=== PATIENT | male | born 1935 | race Caucasian/White ===

== ENCOUNTER 2018-03-29 09:45 | Outpatient (RCR) | payer MEDICARE, SELFPAY ==
--- NOTE | 2017-10-03 14:17 | PT.OIE ---
Current Diagnoses Parkinson's disease (10/03/17) Provider Visit Care Team Role Provider Type Manoj Sanchez MD Primary Care Provider Physician Specialty: Family Practice Address: [facility] [place], [address] Email: [email or web address] Aba Hightower MD Attending Provider Non-Staff Family Provider Specialty: Neurology Address: [address] [place], [address] Email: Physical Therapy Initial Evaluation PT-OP-A Visit Information Start: 10/03/17 13:46 Freq: Status: Active Protocol: Document 10/03/17 12:00 DCW (Rec: 10/03/17 14:16 DCW [id number]) Out-Patient Physical Therapy Visit Information Visit Information Visit Type Initial Evaluation Visit Start Time 12:00 Visit Stop Time 12:45 Total Visit Minutes 45 Visit Number 1 Number of SILVER HOLLOWARE ASSEMBLER Visits 0 Evaluation Information Evaluation Date 10/03/17 PT-OP-B Current Condition Start: 10/03/17 13:46 Freq: Status: Active Protocol: Document 10/03/17 12:00 DCW (Rec: 10/03/17 14:16 DCW [id number]) Current Condition History of Current Condition Onset Date Diagnosed two years ago Current Complaints Decreased balance and gait secondary to Parkinson's disease History of Current Condition Pt is an 81 year old male presenting two years s/p diagnosis of Parkinson's disease. Pt notes that overall , he is doing well, but has some difficulty with his walking and some of his balance. Pt notes that his balance seems to have worsened recently after having trouble with increase tear production in his right eye, which impact his vision and makes him feel less balanced. Pt would like to improve his walking ability as well, and complains of his right leg kicking out during his gait pattern. Future Testing and Treatments Planned Addition of LVST Big program if necessary following his current Physical Therapy program. Treatment Goals Patient/Caregiver Goals Improve gait, improve balance Prior Functional Status Baseline Function- ADL's Independent Baseline Function- Mobility Independent Baseline Function- Gait WNL Current Functional Impairments (Reported) Functional Limitations- Mobility/Gait Pt complains of difficulty walking, particularly with circumduction of his right foot during swing phase. PT-OP-C Subjective Start: 10/03/17 13:46 Freq: Status: Active Protocol: Document 10/03/17 12:00 DCW (Rec: 10/03/17 14:16 DCW [id number]) Patient Questionnaires Foot & Ankle Ability Measure- ADL and Sports FAAM-ADL Score 64/84 = 76.19% FAAM-ADL Impairment 20 to 39% Impaired (Score 50- 66) FAAM-Sport Score 15/28 = 53.57% FAAM-Sport Impairment 40 to 59% Impaired (Score 12- 18) Lower Extremity Functional Scale LEFS Score 55/80 = 68.75% LEFS Impairment 20 to 39% Impaired (Score 48- 62) OP-PT Pain Assessment Pain Assessment Grid Paper Pain Assessment Grid Completed Yes: No noted pain PT-OP-D Balance Start: 10/03/17 13:46 Freq: Status: Active Protocol: Document 10/03/17 12:00 DCW (Rec: 10/03/17 14:16 DCW [id number]) Balance Tests [place] Balance Test [place] Balance Test Score 45/56 [place] Impairment Rating 1 to 19% Impaired (Score 45-55 ) [place] Balance Assessment Evaluation Sitting to Standing Ability Independent w/out Hands Unsupported Stance Safely- 2 minutes Sitting Unsupported, Feet on Floor Safely- 2 minutes Standing to Sitting Ability Safely, Minimal Hand Use Transfer Ability Safely, Minimal Hand Use Unsupported Stance- Eyes Closed Safely, 10 seconds Unsupported Stance- Eyes Open Independent, 1 minute Reaching Forward Standing Safely, 5 inches Pick- Up Object From Floor Independent/Safe Look Behind Shoulder - Standing Turns Sideways Only Turning 360 Degrees Turns slowly, but safely Unsupported Stance, Alternating Feet on 4 Steps w/Supervision Stair Unsupported Tandem Stance Holds Tandem- 30 seconds Unilateral Leg Stance Lifts Leg/Unable to Hold Total Score [place] Total Score (out of 56 points) 45 [place] Impairment Rating 1 to 19% Impaired (Score 45-55 ) PT-OP-E Functional Tests Start: 10/03/17 13:46 Freq: Status: Active Protocol: Document 10/03/17 12:00 DCW (Rec: 10/03/17 14:16 DCW [id number]) Functional Tests Functional Gait Assessment Score 15/31 = 50% Functional Gait Assessment Impairment 40 to <60% Impaired (Score 13- Rating 18) PT-OP-G Mobility & Gait Start: 10/03/17 13:46 Freq: Status: Active Protocol: Document 10/03/17 12:00 DCW (Rec: 10/03/17 14:16 DCW [id number]) OP Gait Assessment Gait Gait Assistance Required: Standby Assistance Distance (Feet) (feet) 100 Able to Maintain Weight Bearing Status Yes During Gait Assistive Devices Assistive Device Gait Belt Orthotic/Prosthetic Devices or Brace: No Gait Deviations General Gait Pattern Decreased Feet Clearance Factors Limiting Gait Function Factors Limiting Gait Function Decreased Strength Poor Balance Comments Gait Comments Right foot circumducts during swing phase to clear toes. Left foot displays increased pronation in stance phase. Stair Climbing Evaluation Evaluation Level of Assist On Stairs Independent Devices Stair Climbing Assistive Devices Left Railing Technique/Endurance Stair Climbing Direction Ascend and Descend Stair Climbing Technique Step Over Step Number of Steps Climbed 4 Stair Climbing Set # Repetitions (reps) 2 PT-OP-H Neuro Start: 10/03/17 13:46 Freq: Status: Active Protocol: Document 10/03/17 12:00 DCW (Rec: 10/03/17 14:16 DCW [id number]) Coordination Evaluation Lower Extremity Tests Right Alternate Heel to Knee; Heel to Toe Test Normal Performance Heel on Sosa Test Normal Performance Left Alternate Heel to Knee; Heel to Toe Test Normal Performance Heel on Sosa Test Normal Performance PT-OP-M Strength Start: 10/03/17 13:46 Freq: Status: Active Protocol: Document 10/03/17 12:00 DCW (Rec: 10/03/17 14:16 DCW [id number]) Hip Strength Hip Manual Muscle Testing Right Flexion (L2) 4 Good Abduction 4 Good Adduction 4+ Good+ Left Flexion (L2) 5 Normal Abduction 5 Normal Adduction 5 Normal Knee Strength Knee Manual Muscle Testing Right Flexion (S2) 4+ Good+ Extension (L3) 4+ Good+ Left Flexion (S2) 4+ Good+ Extension (L3) 4+ Good+ Ankle/Foot Strength Ankle and Foot Manual Muscle Testing Right Dorsiflexion (L4) 4- Good- Plantarflexion (S1) 4 Good Left Dorsiflexion (L4) 4+ Good+ Plantarflexion (S1) 4+ Good+ PT-OP-Q Treatments Start: 10/03/17 13:46 Freq: Status: Active Protocol: Document 10/03/17 12:00 DCW (Rec: 10/03/17 14:16 DCW [id number]) Neuro Re-Education Treatment Balance Activities 1 Details Tandem stance at countertop with head turns PT-OP-T Assessment and Plan Start: 10/03/17 13:46 Freq: Status: Active Protocol: Document 10/03/17 12:00 DCW (Rec: 10/03/17 14:16 DCW [id number]) Physical Therapy Assessment Rehab Potential Rehabilitation Potential Good Evaluation Complexity Number of Personal Factors/Comorbidities 3 or More Number of Body Systems Impaired 3 Clinical Presentation at Evaluation Evolving Impairments Impairments Activity Tolerance Balance Gait Soft Tissue Mobility Strength Goals Five Impairment Gait Short Term Goal (STG) Pt to decrease left over- pronation to WNL STG Duration 10/24/17 Collaborative Teacher Goal (LTG) Pt to display no circumduction of right foot during swing phase LTG Duration 11/14/17 Four Impairment LE Strength Collaborative Teacher Goal (LTG) LE MMT to be grossly 5/5 LTG Duration 11/14/17 Three Impairment Functional Gait Assessment Usp Goal (LTG) Pt to score 23/30 on the FGA LTG Duration 11/14/17 Two Impairment [place] Balance Short Term Goal (STG) Pt to score 50/56 on the [place] Balance Scale STG Duration 10/24/17 One Impairment Activity participation Short Term Goal (STG) Pt to report no loss of balance during ambulation over a period of two weeks STG Duration 10/24/17 Collaborative Teacher Goal (LTG) Pt to report no kicking out of his right foot while walking LTG Duration 11/14/17 Assessment Summary Assessment Pt presents with decreased balance, particularly dynamic balance, and LE weakness secondary to Parkinson's disease. Pt should benefit from skilled therapy focusing on ankle and hip strengthening , balance training, gait training, and functional mobility to decrease the effects of Parkinson's and return him to a relatively normal level of function. Pt may benefit in the long-term from participation in LVST Big program, unfortunately at this time, the therapist in this clinic specializing in this program is unavailable until at least November. Pt will participate in a general balance and strengthening therapy, and will transfer to an LVST Big program at a later date if needed. Physical Therapy Plan Frequency and Duration Frequency of Treatment 2x/Week Duration of Treatment 10 weeks Plan of Care Start Date 10/03/17 Plan of Care End Date 12/12/17 Therapeutic Interventions Therapeutic Interventions Aquatic Therapy Balance Training Coordination Training Gait Training Home Exercise Program Neuromuscular Re-education Patient/Caregiver Education Soft Tissue Mobilization Therapeutic Activities Therapeutic Exercises Next Visit Focus/Plan Next Note Type Treatment Note Next Visit Plan Implement LE strengthening, balance training, gait training.
--- NOTE | 2017-10-03 14:19 | PT.OPPOC ---
Current Diagnoses Parkinson's disease (10/03/17) Provider Visit Care Team Role Provider Type Manoj Sanchez MD Primary Care Provider Physician Specialty: Family Practice Address: [address] [place], [address] Email: [email or web address] Aba Hightower MD Attending Provider Non-Staff Family Provider Specialty: Neurology Address: [address] [place], [address] Email: Plan Of Care PT-OP-T Assessment and Plan Start: 10/03/17 13:46 Freq: Status: Active Protocol: Document 10/03/17 12:00 DCW (Rec: 10/03/17 14:16 DCW [id number]) Physical Therapy Assessment Rehab Potential Rehabilitation Potential Good Evaluation Complexity Number of Personal Factors/Comorbidities 3 or More Number of Body Systems Impaired 3 Clinical Presentation at Evaluation Evolving Impairments Impairments Activity Tolerance Balance Gait Soft Tissue Mobility Strength Goals Five Impairment Gait Short Term Goal (STG) Pt to decrease left over- pronation to WNL STG Duration 10/24/17 Usp Goal (LTG) Pt to display no circumduction of right foot during swing phase LTG Duration 11/14/17 Four Impairment LE Strength Product Info Specialist Goal (LTG) LE MMT to be grossly 5/5 LTG Duration 11/14/17 Three Impairment Functional Gait Assessment Product Info Specialist Goal (LTG) Pt to score 23/30 on the FGA LTG Duration 11/14/17 Two Impairment [place] Balance Short Term Goal (STG) Pt to score 50/56 on the [place] Balance Scale STG Duration 10/24/17 One Impairment Activity participation Short Term Goal (STG) Pt to report no loss of balance during ambulation over a period of two weeks STG Duration 10/24/17 Product Info Specialist Goal (LTG) Pt to report no kicking out of his right foot while walking LTG Duration 11/14/17 Assessment Summary Assessment Pt presents with decreased balance, particularly dynamic balance, and LE weakness secondary to Parkinson's disease. Pt should benefit from skilled therapy focusing on ankle and hip strengthening , balance training, gait training, and functional mobility to decrease the effects of Parkinson's and return him to a relatively normal level of function. Pt may benefit in the long-term from participation in LVST Big program, unfortunately at this time, the therapist in this clinic specializing in this program is unavailable until at least November. Pt will participate in a general balance and strengthening therapy, and will transfer to an LVST Big program at a later date if needed. Physical Therapy Plan Frequency and Duration Frequency of Treatment 2x/Week Duration of Treatment 10 weeks Plan of Care Start Date 10/03/17 Plan of Care End Date 12/12/17 Therapeutic Interventions Therapeutic Interventions Aquatic Therapy Balance Training Coordination Training Gait Training Home Exercise Program Neuromuscular Re-education Patient/Caregiver Education Soft Tissue Mobilization Therapeutic Activities Therapeutic Exercises Next Visit Focus/Plan Next Note Type Treatment Note Next Visit Plan Implement LE strengthening, balance training, gait training. Plan of Care Dates Plan of Care Start Date 10/03/17 Plan of Care End Date 12/12/17 Please Sign and Return: I have reviewed this Plan of Care and certify that the skilled therapy services above are required to meet the patient?s needs. Physician Signature Date Printed Name and Credentials Clinical Instructor Signature Printed Name and Credentials
--- NOTE | 2017-11-01 12:49 | PT.OTN ---
Current Diagnoses Parkinson's disease (11/01/17) Physical Therapy Treatment Note PT-OP-A Visit Information Start: 10/03/17 13:46 Freq: Status: Active Protocol: Document 11/01/17 12:00 DCW (Rec: 11/01/17 12:49 DCW [id number]) Out-Patient Physical Therapy Visit Information Visit Information Visit Type Treatment Note Visit Start Time 12:00 Visit Stop Time 12:45 Total Visit Minutes 45 Visit Number 2 Number of LIGHTING ENGINEER Visits 0 Evaluation Information Evaluation Date 10/03/17 PT-OP-B Current Condition Start: 10/03/17 13:46 Freq: Status: Active Protocol: Document 10/03/17 12:00 DCW (Rec: 10/03/17 14:16 DCW [id number]) Current Condition History of Current Condition Onset Date Diagnosed two years ago Current Complaints Decreased balance and gait secondary to Parkinson's disease History of Current Condition Pt is an 81 year old male presenting two years s/p diagnosis of Parkinson's disease. Pt notes that overall , he is doing well, but has some difficulty with his walking and some of his balance. Pt notes that his balance seems to have worsened recently after having trouble with increase tear production in his right eye, which impact his vision and makes him feel less balanced. Pt would like to improve his walking ability as well, and complains of his right leg kicking out during his gait pattern. Future Testing and Treatments Planned Addition of LVST Big program if necessary following his current Physical Therapy program. Treatment Goals Patient/Caregiver Goals Improve gait, improve balance Prior Functional Status Baseline Function- ADL's Independent Baseline Function- Mobility Independent Baseline Function- Gait WNL Current Functional Impairments (Reported) Functional Limitations- Mobility/Gait Pt complains of difficulty walking, patricularly with circumduction of his right foot during swing phase. PT-OP-C Subjective Start: 10/03/17 13:46 Freq: Status: Active Protocol: Document 11/01/17 12:00 DCW (Rec: 11/01/17 12:49 DCW [id number]) OP-PT Subjective Patient Comments Patient Comments [place] PT-OP-D Balance Start: 10/03/17 13:46 Freq: Status: Active Protocol: Document 10/03/17 12:00 DCW (Rec: 10/03/17 14:16 [facility] [id number]) Balance Tests [place] Balance Test [place] Balance Test Score 45/56 [place] Impairment Rating 1 to 19% Impaired (Score 45-55 ) [place] Balance Assessment Evaluation Sitting to Standing Ability Independent w/out Hands Unsupported Stance Safely- 2 minutes Sitting Unsupported, Feet on Floor Safely- 2 minutes Standing to Sitting Ability Safely, Minimal Hand Use Transfer Ability Safely, Minimal Hand Use Unsupported Stance- Eyes Closed Safely, 10 seconds Unsupported Stance- Eyes Open Independent, 1 minute Reaching Forward Standing Safely, 5 inches Pick- Up Object From Floor Independent/Safe Look Behind Shoulder - Standing Turns Sideways Only Turning 360 Degrees Turns slowly, but safely Unsupported Stance, Alternating Feet on 4 Steps w/Supervision Stair Unsupported Tandem Stance Holds Tandem- 30 seconds Unilateral Leg Stance Lifts Leg/Unable to Hold Total Score [place] Total Score (out of 56 points) 45 [place] Impairment Rating 1 to 19% Impaired (Score 45-55 ) PT-OP-E Functional Tests Start: 10/03/17 13:46 Freq: Status: Active Protocol: Document 10/03/17 12:00 DCW (Rec: 10/03/17 14:16 [facility] [id number]) Functional Tests Functional Gait Assessment Score 15/31 = 50% Functional Gait Assessment Impairment 40 to <60% Impaired (Score 13- Rating 18) PT-OP-G Mobility & Gait Start: 10/03/17 13:46 Freq: Status: Active Protocol: Document 10/03/17 12:00 DCW (Rec: 10/03/17 14:16 [facility] [id number]) OP Gait Assessment Gait Gait Assistance Required: Standby Assistance Distance (Feet) (feet) 100 Able to Maintain Weight Bearing Status Yes During Gait Assistive Devices Assistive Device Gait Belt Orthotic/Prosthetic Devices or Brace: No Gait Deviations General Gait Pattern Decreased Feet Clearance Factors Limiting Gait Function Factors Limiting Gait Function Decreased Strength Poor Balance Comments Gait Comments Right foot circumducts during swing phase to clear toes. Left foot displays increased pronation in stance phase. Stair Climbing Evaluation Evaluation Level of Assist On Stairs Independent Devices Stair Climbing Assistive Devices Left Railing Technique/Endurance Stair Climbing Direction Ascend and Descend Stair Climbing Technique Step Over Step Number of Steps Climbed 4 Stair Climbing Set # Repetitions (reps) 2 PT-OP-H Neuro Start: 10/03/17 13:46 Freq: Status: Active Protocol: Document 10/03/17 12:00 DCW (Rec: 10/03/17 14:16 DCW [id number]) Coordination Evaluation Lower Extremity Tests Right Alternate Heel to Knee; Heel to Toe Test Normal Performance Heel on Sosa Test Normal Performance Left Alternate Heel to Knee; Heel to Toe Test Normal Performance Heel on Sosa Test Normal Performance PT-OP-M Strength Start: 10/03/17 13:46 Freq: Status: Active Protocol: Document 10/03/17 12:00 DCW (Rec: 10/03/17 14:16 DCW [id number]) Hip Strength Hip Manual Muscle Testing Right Flexion (L2) 4 Good Abduction 4 Good Adduction 4+ Good+ Left Flexion (L2) 5 Normal Abduction 5 Normal Adduction 5 Normal Knee Strength Knee Manual Muscle Testing Right Flexion (S2) 4+ Good+ Extension (L3) 4+ Good+ Left Flexion (S2) 4+ Good+ Extension (L3) 4+ Good+ Ankle/Foot Strength Ankle and Foot Manual Muscle Testing Right Dorsiflexion (L4) 4- Good- Plantarflexion (S1) 4 Good Left Dorsiflexion (L4) 4+ Good+ Plantarflexion (S1) 4+ Good+ PT-OP-Q Treatments Start: 10/03/17 13:46 Freq: Status: Active Protocol: Document 11/01/17 12:00 DCW (Rec: 11/01/17 12:49 DCW [id number]) Gym Equipment Shuttle Recovery Unilateral Squats Resistance 75# Shuttle Recovery Platform Stable Bilateral Squats Resistance 125# Shuttle Recovery Platform Stable Shuttle Balance 2 Details Red - Wide EMILY, Staggered Stance 1 Details Yellow - Eyes open/closed, turns Therapeutic Exercises Other Exercises 2 Other Exercise Name Resisted Forward/Retro walking Side bilateral Resistance Yellow Equipment Used T-band 1 Other Exercise Name Resisted side-stepping Side bilateral Resistance Yellow Equipment Used T-band Neuro Re-Education Treatment Balance Activities 4 Details Tandem stance on compliant surface Equipment Gimenez foam 3 Details Hurdles/Foam in // bars Comments Forward, Side-stepping 2 Details Fwd/Retro heel-toe ambulation in // bars PT-OP-T Assessment and Plan Start: 10/03/17 13:46 Freq: Status: Active Protocol: Document 11/01/17 12:00 DCW (Rec: 11/01/17 12:49 DCW [id number]) Physical Therapy Assessment Impairments Impairments Activity Tolerance Balance Gait Soft Tissue Mobility Strength Goals Five Impairment Gait Short Term Goal (STG) Pt to decrease left over- pronation to WNL STG Duration 10/24/17 Penitentiary Goal (LTG) Pt to display no circumduction of right foot during swing phase LTG Duration 11/14/17 Four Impairment LE Strength Penitentiary Goal (LTG) LE MMT to be grossly 5/5 LTG Duration 11/14/17 Three Impairment Functional Gait Assessment Penitentiary Goal (LTG) Pt to score 23/30 on the FGA LTG Duration 11/14/17 Two Impairment [place] Balance Short Term Goal (STG) Pt to score 50/56 on the [place] Balance Scale STG Duration 10/24/17 One Impairment Activity participation Short Term Goal (STG) Pt to report no loss of balance during ambulation over a period of two weeks STG Duration 10/24/17 Cdl Dedicated Truck Driver Goal (LTG) Pt to report no kicking out of his right foot while walking LTG Duration 11/14/17 Assessment Summary Assessment Pt tolerated therapy well today, did not require any rest breaks. Pt interested in HEP, was given tandem stance at counter to work on at home. Physical Therapy Plan Frequency and Duration Frequency of Treatment 2x/Week Duration of Treatment 10 weeks Plan of Care Start Date 10/03/17 Plan of Care End Date 12/12/17 Therapeutic Interventions Therapeutic Interventions Aquatic Therapy Balance Training Coordination Training Gait Training Home Exercise Program Neuromuscular Re-education Patient/Caregiver Education Soft Tissue Mobilization Therapeutic Activities Therapeutic Exercises Next Visit Focus/Plan Next Note Type Treatment Note Next Visit Plan Implement LE strengthening, balance training, gait training.
--- NOTE | 2017-11-08 12:00 | PT.OTN ---
Current Diagnoses Parkinson's disease (11/08/17) Physical Therapy Treatment Note PT-OP-A Visit Information Start: 10/03/17 13:46 Freq: Status: Active Protocol: Document 11/08/17 11:15 DCW (Rec: 11/08/17 11:58 DCW [id number]) Out-Patient Physical Therapy Visit Information Visit Information Visit Type Treatment Note Visit Start Time 11:15 Visit Stop Time 12:00 Total Visit Minutes 45 Visit Number 3 Number of CAMERA TUNING ENGINEER Visits 0 Evaluation Information Evaluation Date 10/03/17 PT-OP-B Current Condition Start: 10/03/17 13:46 Freq: Status: Active Protocol: Document 10/03/17 12:00 DCW (Rec: 10/03/17 14:16 DCW [id number]) Current Condition History of Current Condition Onset Date Diagnosed two years ago Current Complaints Decreased balance and gait secondary to Parkinson's disease History of Current Condition Pt is an 81 year old male presenting two years s/p diagnosis of Parkinson's disease. Pt notes that overall , he is doing well, but has some difficulty with his walking and some of his balance. Pt notes that his balance seems to have worsened recently after having trouble with increase tear production in his right eye, which impact his vision and makes him feel less balanced. Pt would like to improve his walking ability as well, and complains of his right leg kicking out during his gait pattern. Future Testing and Treatments Planned Addition of LVST Big program if necessary following his current Physical Therapy program. Treatment Goals Patient/Caregiver Goals Improve gait, improve balance Prior Functional Status Baseline Function- ADL's Independent Baseline Function- Mobility Independent Baseline Function- Gait WNL Current Functional Impairments (Reported) Functional Limitations- Mobility/Gait Pt complains of difficulty walking, patricularly with circumduction of his right foot during swing phase. PT-OP-C Subjective Start: 10/03/17 13:46 Freq: Status: Active Protocol: Document 11/08/17 11:15 DCW (Rec: 11/08/17 11:58 DCW [id number]) OP-PT Subjective Patient Comments Patient Comments Pt notes that he felt pretty good following his last appointment. PT-OP-D Balance Start: 10/03/17 13:46 Freq: Status: Active Protocol: Document 10/03/17 12:00 DCW (Rec: 10/03/17 14:16 [facility] [id number]) Balance Tests [place] Balance Test [place] Balance Test Score 45/56 [place] Impairment Rating 1 to 19% Impaired (Score 45-55 ) [place] Balance Assessment Evaluation Sitting to Standing Ability Independent w/out Hands Unsupported Stance Safely- 2 minutes Sitting Unsupported, Feet on Floor Safely- 2 minutes Standing to Sitting Ability Safely, Minimal Hand Use Transfer Ability Safely, Minimal Hand Use Unsupported Stance- Eyes Closed Safely, 10 seconds Unsupported Stance- Eyes Open Independent, 1 minute Reaching Forward Standing Safely, 5 inches Pick- Up Object From Floor Independent/Safe Look Behind Shoulder - Standing Turns Sideways Only Turning 360 Degrees Turns slowly, but safely Unsupported Stance, Alternating Feet on 4 Steps w/Supervision Stair Unsupported Tandem Stance Holds Tandem- 30 seconds Unilateral Leg Stance Lifts Leg/Unable to Hold Total Score [place] Total Score (out of 56 points) 45 [place] Impairment Rating 1 to 19% Impaired (Score 45-55 ) PT-OP-E Functional Tests Start: 10/03/17 13:46 Freq: Status: Active Protocol: Document 11/08/17 11:15 DCW (Rec: 11/08/17 12:00 DCW [id number]) Functional Tests Timed Up and Go (TUG) Score 3-trial average = 10.96 seconds TUG Impairment Rating 1 to <20% Impaired (Score 11) PT-OP-G Mobility & Gait Start: 10/03/17 13:46 Freq: Status: Active Protocol: Document 10/03/17 12:00 DCW (Rec: 10/03/17 14:16 [facility] [id number]) OP Gait Assessment Gait Gait Assistance Required: Standby Assistance Distance (Feet) (feet) 100 Able to Maintain Weight Bearing Status Yes During Gait Assistive Devices Assistive Device Gait Belt Orthotic/Prosthetic Devices or Brace: No Gait Deviations General Gait Pattern Decreased Feet Clearance Factors Limiting Gait Function Factors Limiting Gait Function Decreased Strength Poor Balance Comments Gait Comments Right foot circumducts during swing phase to clear toes. Left foot displays increased pronation in stance phase. Stair Climbing Evaluation Evaluation Level of Assist On Stairs Independent Devices Stair Climbing Assistive Devices Left Railing Technique/Endurance Stair Climbing Direction Ascend and Descend Stair Climbing Technique Step Over Step Number of Steps Climbed 4 Stair Climbing Set # Repetitions (reps) 2 PT-OP-H Neuro Start: 10/03/17 13:46 Freq: Status: Active Protocol: Document 10/03/17 12:00 DCW (Rec: 10/03/17 14:16 DCW [id number]) Coordination Evaluation Lower Extremity Tests Right Alternate Heel to Knee; Heel to Toe Test Normal Performance Heel on Sosa Test Normal Performance Left Alternate Heel to Knee; Heel to Toe Test Normal Performance Heel on Sosa Test Normal Performance PT-OP-M Strength Start: 10/03/17 13:46 Freq: Status: Active Protocol: Document 10/03/17 12:00 DCW (Rec: 10/03/17 14:16 DCW [id number]) Hip Strength Hip Manual Muscle Testing Right Flexion (L2) 4 Good Abduction 4 Good Adduction 4+ Good+ Left Flexion (L2) 5 Normal Abduction 5 Normal Adduction 5 Normal Knee Strength Knee Manual Muscle Testing Right Flexion (S2) 4+ Good+ Extension (L3) 4+ Good+ Left Flexion (S2) 4+ Good+ Extension (L3) 4+ Good+ Ankle/Foot Strength Ankle and Foot Manual Muscle Testing Right Dorsiflexion (L4) 4- Good- Plantarflexion (S1) 4 Good Left Dorsiflexion (L4) 4+ Good+ Plantarflexion (S1) 4+ Good+ PT-OP-Q Treatments Start: 10/03/17 13:46 Freq: Status: Active Protocol: Document 11/08/17 11:15 DCW (Rec: 11/08/17 11:58 DCW [id number]) Gym Equipment Shuttle Recovery Unilateral Squats Resistance 75# Shuttle Recovery Platform Stable Bilateral Squats Resistance 125# Shuttle Recovery Platform Stable Shuttle Balance 2 Details Red - Wide EMILY, Staggered Stance Therapeutic Exercises Other Exercises 2 Other Exercise Name Resisted Forward/Retro walking Side bilateral Resistance Green Equipment Used T-band 1 Other Exercise Name Resisted side-stepping Side bilateral Resistance Green Equipment Used T-band Neuro Re-Education Treatment Balance Activities 4 Details Tandem stance on compliant surface Equipment Gimenez foam 3 Details Hurdles/Foam in // bars Comments Forward, Side-stepping 2 Details Fwd/Retro heel-toe ambulation in // bars PT-OP-T Assessment and Plan Start: 10/03/17 13:46 Freq: Status: Active Protocol: Document 11/08/17 11:15 DCW (Rec: 11/08/17 11:58 DCW [id number]) Physical Therapy Assessment Impairments Impairments Activity Tolerance Balance Gait Soft Tissue Mobility Strength Goals Five Impairment Gait Short Term Goal (STG) Pt to decrease left over- pronation to WNL STG Duration 10/24/17 Jail Goal (LTG) Pt to display no circumduction of right foot during swing phase LTG Duration 11/14/17 Four Impairment LE Strength Cashier Self Service [employer] Goal (LTG) LE MMT to be grossly 5/5 LTG Duration 11/14/17 Three Impairment Functional Gait Assessment Cashier Self Service [employer] Goal (LTG) Pt to score 23/30 on the FGA LTG Duration 11/14/17 Two Impairment [place] Balance Short Term Goal (STG) Pt to score 50/56 on the [place] Balance Scale STG Duration 10/24/17 One Impairment Activity participation Short Term Goal (STG) Pt to report no loss of balance during ambulation over a period of two weeks STG Duration 10/24/17 Cashier Self Service Gasoline Goal (LTG) Pt to report no kicking out of his right foot while walking LTG Duration 11/14/17 Assessment Summary Assessment Pt still doing well with HEP, participating in all therapy activities. TUG score places him in a low falls risk category. Physical Therapy Plan Frequency and Duration Frequency of Treatment 2x/Week Duration of Treatment 10 weeks Plan of Care Start Date 10/03/17 Plan of Care End Date 12/12/17 Therapeutic Interventions Therapeutic Interventions Aquatic Therapy Balance Training Coordination Training Gait Training Home Exercise Program Neuromuscular Re-education Patient/Caregiver Education Soft Tissue Mobilization Therapeutic Activities Therapeutic Exercises Next Visit Focus/Plan Next Note Type Treatment Note Next Visit Plan LE strengthening, balance training, gait training.
--- NOTE | 2017-11-14 12:43 | PT.OTN ---
Current Diagnoses Parkinson's disease (11/14/17) Physical Therapy Treatment Note PT-OP-A Visit Information Start: 10/03/17 13:46 Freq: Status: Active Protocol: Document 11/14/17 12:00 DCW (Rec: 11/14/17 12:43 DCW [id number]) Out-Patient Physical Therapy Visit Information Visit Information Visit Type Treatment Note Visit Start Time 12:00 Visit Stop Time 12:45 Total Visit Minutes 45 Visit Number 4 Number of SCHOOL TRAFFIC GUARD Visits 0 Evaluation Information Evaluation Date 10/03/17 PT-OP-B Current Condition Start: 10/03/17 13:46 Freq: Status: Active Protocol: Document 10/03/17 12:00 DCW (Rec: 10/03/17 14:16 DCW [id number]) Current Condition History of Current Condition Onset Date Diagnosed two years ago Current Complaints Decreased balance and gait secondary to Parkinson's disease History of Current Condition Pt is an 81 year old male presenting two years s/p diagnosis of Parkinson's disease. Pt notes that overall , he is doing well, but has some difficulty with his walking and some of his balance. Pt notes that his balance seems to have worsened recently after having trouble with increase tear production in his right eye, which impact his vision and makes him feel less balanced. Pt would like to improve his walking ability as well, and complains of his right leg kicking out during his gait pattern. Future Testing and Treatments Planned Addition of LVST Big program if necessary following his current Physical Therapy program. Treatment Goals Patient/Caregiver Goals Improve gait, improve balance Prior Functional Status Baseline Function- ADL's Independent Baseline Function- Mobility Independent Baseline Function- Gait WNL Current Functional Impairments (Reported) Functional Limitations- Mobility/Gait Pt complains of difficulty walking, patricularly with circumduction of his right foot during swing phase. PT-OP-C Subjective Start: 10/03/17 13:46 Freq: Status: Active Protocol: Document 11/14/17 12:00 DCW (Rec: 11/14/17 12:43 DCW [id number]) OP-PT Subjective Patient Comments Patient Comments Pt reports he has been walking all over the place already today. PT-OP-D Balance Start: 10/03/17 13:46 Freq: Status: Active Protocol: Document 10/03/17 12:00 DCW (Rec: 10/03/17 14:16 [facility] [id number]) Balance Tests [place] Balance Test [place] Balance Test Score 45/56 [place] Impairment Rating 1 to 19% Impaired (Score 45-55 ) [place] Balance Assessment Evaluation Sitting to Standing Ability Independent w/out Hands Unsupported Stance Safely- 2 minutes Sitting Unsupported, Feet on Floor Safely- 2 minutes Standing to Sitting Ability Safely, Minimal Hand Use Transfer Ability Safely, Minimal Hand Use Unsupported Stance- Eyes Closed Safely, 10 seconds Unsupported Stance- Eyes Open Independent, 1 minute Reaching Forward Standing Safely, 5 inches Pick- Up Object From Floor Independent/Safe Look Behind Shoulder - Standing Turns Sideways Only Turning 360 Degrees Turns slowly, but safely Unsupported Stance, Alternating Feet on 4 Steps w/Supervision Stair Unsupported Tandem Stance Holds Tandem- 30 seconds Unilateral Leg Stance Lifts Leg/Unable to Hold Total Score [place] Total Score (out of 56 points) 45 [place] Impairment Rating 1 to 19% Impaired (Score 45-55 ) PT-OP-E Functional Tests Start: 10/03/17 13:46 Freq: Status: Active Protocol: Document 11/08/17 11:15 DCW (Rec: 11/08/17 12:00 DCW [id number]) Functional Tests Timed Up and Go (TUG) Score 3-trial average = 10.96 seconds TUG Impairment Rating 1 to <20% Impaired (Score 11) PT-OP-G Mobility & Gait Start: 10/03/17 13:46 Freq: Status: Active Protocol: Document 10/03/17 12:00 DCW (Rec: 10/03/17 14:16 [facility] [id number]) OP Gait Assessment Gait Gait Assistance Required: Standby Assistance Distance (Feet) (feet) 100 Able to Maintain Weight Bearing Status Yes During Gait Assistive Devices Assistive Device Gait Belt Orthotic/Prosthetic Devices or Brace: No Gait Deviations General Gait Pattern Decreased Feet Clearance Factors Limiting Gait Function Factors Limiting Gait Function Decreased Strength Poor Balance Comments Gait Comments Right foot circumducts during swing phase to clear toes. Left foot displays increased pronation in stance phase. Stair Climbing Evaluation Evaluation Level of Assist On Stairs Independent Devices Stair Climbing Assistive Devices Left Railing Technique/Endurance Stair Climbing Direction Ascend and Descend Stair Climbing Technique Step Over Step Number of Steps Climbed 4 Stair Climbing Set # Repetitions (reps) 2 PT-OP-H Neuro Start: 10/03/17 13:46 Freq: Status: Active Protocol: Document 10/03/17 12:00 DCW (Rec: 10/03/17 14:16 DCW [id number]) Coordination Evaluation Lower Extremity Tests Right Alternate Heel to Knee; Heel to Toe Test Normal Performance Heel on Sosa Test Normal Performance Left Alternate Heel to Knee; Heel to Toe Test Normal Performance Heel on Sosa Test Normal Performance PT-OP-M Strength Start: 10/03/17 13:46 Freq: Status: Active Protocol: Document 10/03/17 12:00 DCW (Rec: 10/03/17 14:16 DCW [id number]) Hip Strength Hip Manual Muscle Testing Right Flexion (L2) 4 Good Abduction 4 Good Adduction 4+ Good+ Left Flexion (L2) 5 Normal Abduction 5 Normal Adduction 5 Normal Knee Strength Knee Manual Muscle Testing Right Flexion (S2) 4+ Good+ Extension (L3) 4+ Good+ Left Flexion (S2) 4+ Good+ Extension (L3) 4+ Good+ Ankle/Foot Strength Ankle and Foot Manual Muscle Testing Right Dorsiflexion (L4) 4- Good- Plantarflexion (S1) 4 Good Left Dorsiflexion (L4) 4+ Good+ Plantarflexion (S1) 4+ Good+ PT-OP-Q Treatments Start: 10/03/17 13:46 Freq: Status: Active Protocol: Document 11/14/17 12:00 DCW (Rec: 11/14/17 12:43 DCW [id number]) Gym Equipment Shuttle Recovery Unilateral Squats Resistance 87# Shuttle Recovery Platform Stable Bilateral Squats Resistance 150# Shuttle Recovery Platform Stable Shuttle Balance 2 Details Red - Wide EMILY (EO/EC), Staggered Stance Therapeutic Exercises Other Exercises 2 Other Exercise Name Resisted Forward/Retro walking Side bilateral Resistance Green Equipment Used T-band 1 Other Exercise Name Resisted side-stepping Side bilateral Resistance Green Equipment Used T-band Neuro Re-Education Treatment Balance Activities 6 Details [place] in // bars 5 Details SLS on foam Equipment Blue 4 Details Extented [place] stance on compliant surface Equipment Blue foam 3 Details Hurdles/Foam in // bars Comments Forward, Side-stepping 2 Details Fwd/Retro heel-toe ambulation in // bars PT-OP-T Assessment and Plan Start: 10/03/17 13:46 Freq: Status: Active Protocol: Document 11/14/17 12:00 DCW (Rec: 11/14/17 12:43 DCW [id number]) Physical Therapy Assessment Impairments Impairments Activity Tolerance Balance Gait Soft Tissue Mobility Strength Goals Five Impairment Gait Short Term Goal (STG) Pt to decrease left over- pronation to WNL STG Duration 10/24/17 Acquisition Advisor Goal (LTG) Pt to display no circumduction of right foot during swing phase LTG Duration 11/14/17 Four Impairment LE Strength Acquisition Advisor Goal (LTG) LE MMT to be grossly 5/5 LTG Duration 11/14/17 Three Impairment Functional Gait Assessment Acquisition Advisor Goal (LTG) Pt to score 23/30 on the FGA LTG Duration 11/14/17 Two Impairment [place] Balance Short Term Goal (STG) Pt to score 50/56 on the [place] Balance Scale STG Duration 10/24/17 One Impairment Activity participation Short Term Goal (STG) Pt to report no loss of balance during ambulation over a period of two weeks STG Duration 10/24/17 Group Home Goal (LTG) Pt to report no kicking out of his right foot while walking LTG Duration 11/14/17 Assessment Summary Assessment Continues to work hard in therapy, optimistic about improvement. Physical Therapy Plan Frequency and Duration Frequency of Treatment 2x/Week Duration of Treatment 10 weeks Plan of Care Start Date 10/03/17 Plan of Care End Date 12/12/17 Therapeutic Interventions Therapeutic Interventions Aquatic Therapy Balance Training Coordination Training Gait Training Home Exercise Program Neuromuscular Re-education Patient/Caregiver Education Soft Tissue Mobilization Therapeutic Activities Therapeutic Exercises Next Visit Focus/Plan Next Note Type Treatment Note Next Visit Plan LE strengthening, balance training, gait training.
--- NOTE | 2017-11-21 12:00 | PT.OTN ---
Current Diagnoses Parkinson's disease (11/21/17) Physical Therapy Treatment Note PT-OP-A Visit Information Start: 10/03/17 13:46 Freq: Status: Active Protocol: Document 11/21/17 11:15 DCW (Rec: 11/21/17 12:00 DCW [id number]) Out-Patient Physical Therapy Visit Information Visit Information Visit Type Treatment Note Visit Start Time 11:15 Visit Stop Time 12:00 Total Visit Minutes 45 Visit Number 5 Number of PARACHUTE/COMBATANT DIVER OFFICER Visits 0 Evaluation Information Evaluation Date 10/03/17 PT-OP-B Current Condition Start: 10/03/17 13:46 Freq: Status: Active Protocol: Document 10/03/17 12:00 DCW (Rec: 10/03/17 14:16 DCW [id number]) Current Condition History of Current Condition Onset Date Diagnosed two years ago Current Complaints Decreased balance and gait secondary to Parkinson's disease History of Current Condition Pt is an 81 year old male presenting two years s/p diagnosis of Parkinson's disease. Pt notes that overall , he is doing well, but has some difficulty with his walking and some of his balance. Pt notes that his balance seems to have worsened recently after having trouble with increase tear production in his right eye, which impact his vision and makes him feel less balanced. Pt would like to improve his walking ability as well, and complains of his right leg kicking out during his gait pattern. Future Testing and Treatments Planned Addition of LVST Big program if necessary following his current Physical Therapy program. Treatment Goals Patient/Caregiver Goals Improve gait, improve balance Prior Functional Status Baseline Function- ADL's Independent Baseline Function- Mobility Independent Baseline Function- Gait WNL Current Functional Impairments (Reported) Functional Limitations- Mobility/Gait Pt complains of difficulty walking, patricularly with circumduction of his right foot during swing phase. PT-OP-C Subjective Start: 10/03/17 13:46 Freq: Status: Active Protocol: Document 11/21/17 11:15 DCW (Rec: 11/21/17 12:00 DCW [id number]) OP-PT Subjective Patient Comments Patient Comments Pt reports that his feet feel like they're asleep today. PT-OP-D Balance Start: 10/03/17 13:46 Freq: Status: Active Protocol: Document 10/03/17 12:00 DCW (Rec: 10/03/17 14:16 [facility] [id number]) Balance Tests [place] Balance Test [place] Balance Test Score 45/56 [place] Impairment Rating 1 to 19% Impaired (Score 45-55 ) [place] Balance Assessment Evaluation Sitting to Standing Ability Independent w/out Hands Unsupported Stance Safely- 2 minutes Sitting Unsupported, Feet on Floor Safely- 2 minutes Standing to Sitting Ability Safely, Minimal Hand Use Transfer Ability Safely, Minimal Hand Use Unsupported Stance- Eyes Closed Safely, 10 seconds Unsupported Stance- Eyes Open Independent, 1 minute Reaching Forward Standing Safely, 5 inches Pick- Up Object From Floor Independent/Safe Look Behind Shoulder - Standing Turns Sideways Only Turning 360 Degrees Turns slowly, but safely Unsupported Stance, Alternating Feet on 4 Steps w/Supervision Stair Unsupported Tandem Stance Holds Tandem- 30 seconds Unilateral Leg Stance Lifts Leg/Unable to Hold Total Score [place] Total Score (out of 56 points) 45 [place] Impairment Rating 1 to 19% Impaired (Score 45-55 ) PT-OP-E Functional Tests Start: 10/03/17 13:46 Freq: Status: Active Protocol: Document 11/08/17 11:15 DCW (Rec: 11/08/17 12:00 GAW [id number]) Functional Tests Timed Up and Go (TUG) Score 3-trial average = 10.96 seconds TUG Impairment Rating 1 to <20% Impaired (Score 11) PT-OP-G Mobility & Gait Start: 10/03/17 13:46 Freq: Status: Active Protocol: Document 10/03/17 12:00 DCW (Rec: 10/03/17 14:16 [facility] [id number]) OP Gait Assessment Gait Gait Assistance Required: Standby Assistance Distance (Feet) (feet) 100 Able to Maintain Weight Bearing Status Yes During Gait Assistive Devices Assistive Device Gait Belt Orthotic/Prosthetic Devices or Brace: No Gait Deviations General Gait Pattern Decreased Feet Clearance Factors Limiting Gait Function Factors Limiting Gait Function Decreased Strength Poor Balance Comments Gait Comments Right foot circumducts during swing phase to clear toes. Left foot displays increased pronation in stance phase. Stair Climbing Evaluation Evaluation Level of Assist On Stairs Independent Devices Stair Climbing Assistive Devices Left Railing Technique/Endurance Stair Climbing Direction Ascend and Descend Stair Climbing Technique Step Over Step Number of Steps Climbed 4 Stair Climbing Set # Repetitions (reps) 2 PT-OP-H Neuro Start: 10/03/17 13:46 Freq: Status: Active Protocol: Document 10/03/17 12:00 DCW (Rec: 10/03/17 14:16 DCW [id number]) Coordination Evaluation Lower Extremity Tests Right Alternate Heel to Knee; Heel to Toe Test Normal Performance Heel on Sosa Test Normal Performance Left Alternate Heel to Knee; Heel to Toe Test Normal Performance Heel on Sosa Test Normal Performance PT-OP-M Strength Start: 10/03/17 13:46 Freq: Status: Active Protocol: Document 10/03/17 12:00 DCW (Rec: 10/03/17 14:16 DCW [id number]) Hip Strength Hip Manual Muscle Testing Right Flexion (L2) 4 Good Abduction 4 Good Adduction 4+ Good+ Left Flexion (L2) 5 Normal Abduction 5 Normal Adduction 5 Normal Knee Strength Knee Manual Muscle Testing Right Flexion (S2) 4+ Good+ Extension (L3) 4+ Good+ Left Flexion (S2) 4+ Good+ Extension (L3) 4+ Good+ Ankle/Foot Strength Ankle and Foot Manual Muscle Testing Right Dorsiflexion (L4) 4- Good- Plantarflexion (S1) 4 Good Left Dorsiflexion (L4) 4+ Good+ Plantarflexion (S1) 4+ Good+ PT-OP-Q Treatments Start: 10/03/17 13:46 Freq: Status: Active Protocol: Document 11/21/17 11:15 DCW (Rec: 11/21/17 12:00 DCW [id number]) Gym Equipment Shuttle Recovery Unilateral Squats Resistance 87# Shuttle Recovery Platform Stable Bilateral Squats Resistance 150# Shuttle Recovery Platform Stable Shuttle Balance 2 Details Red - Wide EMILY (EO/EC), Staggered Stance Neuro Re-Education Treatment Balance Activities 6 Details [place] in // bars 5 Details SLS on foam Equipment Blue 3 Details Hurdles/Foam in // bars Comments Forward, Side-stepping 2 Details Fwd/Retro heel-toe ambulation in // bars Coordination Activities 1 Details Kicking stationary and moving balls PT-OP-T Assessment and Plan Start: 10/03/17 13:46 Freq: Status: Active Protocol: Document 11/21/17 11:15 DCW (Rec: 11/21/17 12:00 DCW [id number]) Physical Therapy Assessment Impairments Impairments Activity Tolerance Balance Gait Soft Tissue Mobility Strength Goals Five Impairment Gait Short Term Goal (STG) Pt to decrease left over- pronation to WNL STG Duration 10/24/17 Insole Doubler Goal (LTG) Pt to display no circumduction of right foot during swing phase LTG Duration 11/14/17 Four Impairment LE Strength Fci Goal (LTG) LE MMT to be grossly 5/5 LTG Duration 11/14/17 Three Impairment Functional Gait Assessment Fci Goal (LTG) Pt to score 23/30 on the FGA LTG Duration 11/14/17 Two Impairment [place] Balance Short Term Goal (STG) Pt to score 50/56 on the [place] Balance Scale STG Duration 10/24/17 One Impairment Activity participation Short Term Goal (STG) Pt to report no loss of balance during ambulation over a period of two weeks STG Duration 10/24/17 Insole Doubler Goal (LTG) Pt to report no kicking out of his right foot while walking LTG Duration 11/14/17 Assessment Summary Assessment Pt performed well with addition of kicking balls, able to maintain balance ad shift weight well. Physical Therapy Plan Frequency and Duration Frequency of Treatment 2x/Week Duration of Treatment 10 weeks Plan of Care Start Date 10/03/17 Plan of Care End Date 12/12/17 Therapeutic Interventions Therapeutic Interventions Aquatic Therapy Balance Training Coordination Training Gait Training Home Exercise Program Neuromuscular Re-education Patient/Caregiver Education Soft Tissue Mobilization Therapeutic Activities Therapeutic Exercises Next Visit Focus/Plan Next Note Type Treatment Note Next Visit Plan LE strengthening, balance training, gait training.
--- NOTE | 2017-12-07 10:32 | PT.OTN ---
Current Diagnoses Parkinson's disease (12/07/17) Physical Therapy Treatment Note PT-OP-A Visit Information Start: 10/03/17 13:46 Freq: Status: Active Protocol: Document 12/07/17 09:45 DCW (Rec: 12/07/17 10:32 DCW [id number]) Out-Patient Physical Therapy Visit Information Visit Information Visit Type Progress Note Visit Start Time 09:45 Visit Stop Time 10:30 Total Visit Minutes 45 Visit Number 6 Number of BALL MILL OPERATOR Visits 0 Evaluation Information Evaluation Date 10/03/17 PT-OP-B Current Condition Start: 10/03/17 13:46 Freq: Status: Active Protocol: Document 10/03/17 12:00 DCW (Rec: 10/03/17 14:16 DCW [id number]) Current Condition History of Current Condition Onset Date Diagnosed two years ago Current Complaints Decreased balance and gait secondary to Parkinson's disease History of Current Condition Pt is an 81 year old male presenting two years s/p diagnosis of Parkinson's disease. Pt notes that overall , he is doing well, but has some difficulty with his walking and some of his balance. Pt notes that his balance seems to have worsened recently after having trouble with increase tear production in his right eye, which impact his vision and makes him feel less balanced. Pt would like to improve his walking ability as well, and complains of his right leg kicking out during his gait pattern. Future Testing and Treatments Planned Addition of LVST Big program if necessary following his current Physical Therapy program. Treatment Goals Patient/Caregiver Goals Improve gait, improve balance Prior Functional Status Baseline Function- ADL's Independent Baseline Function- Mobility Independent Baseline Function- Gait WNL Current Functional Impairments (Reported) Functional Limitations- Mobility/Gait Pt complains of difficulty walking, patricularly with circumduction of his right foot during swing phase. PT-OP-C Subjective Start: 10/03/17 13:46 Freq: Status: Active Protocol: Document 12/07/17 09:45 DCW (Rec: 12/07/17 10:32 DCW [id number]) OP-PT Subjective Patient Comments Patient Comments Pt reports that he is feeling better today. PT-OP-D Balance Start: 10/03/17 13:46 Freq: Status: Active Protocol: Document 12/07/17 09:45 DCW (Rec: 12/07/17 10:14 DCW [id number]) Balance Tests [place] Balance Test [place] Balance Test Score 49/56 [place] Impairment Rating 1 to 19% Impaired (Score 45-55 ) [place] Balance Assessment Evaluation Sitting to Standing Ability Independent w/out Hands Unsupported Stance Safely- 2 minutes Sitting Unsupported, Feet on Floor Safely- 2 minutes Standing to Sitting Ability Safely, Minimal Hand Use Transfer Ability Safely, Minimal Hand Use Unsupported Stance- Eyes Closed Safely, 10 seconds Unsupported Stance- Eyes Open Independent, 1 minute Reaching Forward Standing Safely, 5 inches Pick- Up Object From Floor Independent/Safe Look Behind Shoulder - Standing Turns Sideways Only Turning 360 Degrees Turns slowly, but safely Unsupported Stance, Alternating Feet on (I)- 8 Steps in 20 secs Stair Unsupported Tandem Stance Achieves Tandem Unilateral Leg Stance Lifts Leg/Holds > 3 secs Total Score [place] Total Score (out of 56 points) 49 [place] Impairment Rating 1 to 19% Impaired (Score 45-55 ) PT-OP-E Functional Tests Start: 10/03/17 13:46 Freq: Status: Active Protocol: Document 12/07/17 09:45 DCW (Rec: 12/07/17 10:14 [facility] [id number]) Functional Tests Functional Gait Assessment Score 20/30 = 67% Functional Gait Assessment Impairment 20 to <40% Impaired (Score 19- Rating 24) Timed Up and Go (TUG) Score 3-trial average = 8.66 seconds TUG Impairment Rating 0% Impaired (Score 10) PT-OP-G Mobility & Gait Start: 10/03/17 13:46 Freq: Status: Active Protocol: Document 12/07/17 09:45 DCW (Rec: 12/07/17 10:14 DC [id number]) OP Gait Assessment Gait Gait Assistance Required: Standby Assistance Distance (Feet) (feet) 100 Able to Maintain Weight Bearing Status Yes During Gait Assistive Devices Assistive Device Gait Belt Orthotic/Prosthetic Devices or Brace: No Gait Deviations General Gait Pattern Decreased Feet Clearance Factors Limiting Gait Function Factors Limiting Gait Function Decreased Strength Poor Balance Comments Gait Comments Right foot circumducts during swing phase to clear toes. Left foot displays increased pronation in stance phase. Stair Climbing Evaluation Evaluation Level of Assist On Stairs Independent Devices Stair Climbing Assistive Devices Left Railing Technique/Endurance Stair Climbing Direction Ascend and Descend Stair Climbing Technique Step Over Step Number of Steps Climbed 4 Stair Climbing Set # Repetitions (reps) 2 PT-OP-H Neuro Start: 10/03/17 13:46 Freq: Status: Active Protocol: Document 12/07/17 09:45 DCW (Rec: 12/07/17 10:15 DCW [id number]) Coordination Evaluation Lower Extremity Tests Right Alternate Heel to Knee; Heel to Toe Test Normal Performance Heel on Sosa Test Normal Performance Left Alternate Heel to Knee; Heel to Toe Test Normal Performance Heel on Sosa Test Normal Performance PT-OP-M Strength Start: 10/03/17 13:46 Freq: Status: Active Protocol: Document 12/07/17 09:45 DCW (Rec: 12/07/17 10:14 DCW [id number]) Hip Strength Hip Manual Muscle Testing Right Flexion (L2) 5 Normal Abduction 5 Normal Adduction 5 Normal Left Flexion (L2) 5 Normal Abduction 5 Normal Adduction 5 Normal Knee Strength Knee Manual Muscle Testing Right Flexion (S2) 5 Normal Extension (L3) 5 Normal Left Flexion (S2) 5 Normal Extension (L3) 5 Normal Ankle/Foot Strength Ankle and Foot Manual Muscle Testing Right Dorsiflexion (L4) 5 Normal Plantarflexion (S1) 5 Normal Left Dorsiflexion (L4) 5 Normal Plantarflexion (S1) 4+ Good+ PT-OP-Q Treatments Start: 10/03/17 13:46 Freq: Status: Active Protocol: Document 12/07/17 09:45 DCW (Rec: 12/07/17 10:32 DCW [id number]) Gym Equipment Shuttle Balance 2 Details Red - Wide EMILY (EO/EC), Staggered Stance PT-OP-T Assessment and Plan Start: 10/03/17 13:46 Freq: Status: Active Protocol: Document 12/07/17 09:45 DCW (Rec: 12/07/17 10:32 DCW [id number]) Physical Therapy Assessment Impairments Impairments Activity Tolerance Balance Gait Soft Tissue Mobility Strength Goals Five Impairment Gait Short Term Goal (STG) Pt to decrease left over- pronation to WNL STG Duration 01/07/18 Executive Services Administrator Goal (LTG) Pt to display no circumduction of right foot during swing phase LTG Duration 02/06/18 Four Impairment LE Strength Executive Services Administrator Goal (LTG) LE MMT to be grossly 5/5 LTG Duration Met Three Impairment Functional Gait Assessment Mcc Goal (LTG) Pt to score 23/30 on the FGA LTG Duration 02/03/18 - Improving Two Impairment [place] Balance Short Term Goal (STG) Pt to score 50/56 on the [place] Balance Scale STG Duration 02/03/18 - Improving One Impairment Activity participation Short Term Goal (STG) Pt to report no loss of balance during ambulation over a period of two weeks STG Duration 01/07/18 Mcc Goal (LTG) Pt to report no kicking out of his right foot while walking LTG Duration 02/06/18 Assessment Summary Assessment Pt displaying improved score in all tests, especially in the FGA, improving from 15/30 to 20/30. Pt should continue with skilled therapy to help improved secondary deficits from Parkinson's disease, and help improve gait pattern. Physical Therapy Plan Frequency and Duration Frequency of Treatment 2x/Week Duration of Treatment 10 weeks Plan of Care Start Date 10/03/17 Plan of Care End Date 12/12/17 Therapeutic Interventions Therapeutic Interventions Aquatic Therapy Balance Training Coordination Training Gait Training Home Exercise Program Neuromuscular Re-education Patient/Caregiver Education Soft Tissue Mobilization Therapeutic Activities Therapeutic Exercises Next Visit Focus/Plan Next Note Type Treatment Note Next Visit Plan LE strengthening, balance training, gait training.
--- NOTE | 2017-12-07 10:33 | PT.OPPOC ---
Current Diagnoses Parkinson's disease (12/07/17) Provider Visit Care Team Role Provider Type Manjo Sanchez MD Primary Care Provider Physician Specialty: Family Practice Address: [address] [place], [address] Email: [email or web address] Aba Hightower MD Attending Provider Non-Staff Family Provider Specialty: Neurology Address: [address] [place], [address] Email: Plan Of Care PT-OP-T Assessment and Plan Start: 10/03/17 13:46 Freq: Status: Active Protocol: Document 12/07/17 09:45 DCW (Rec: 12/07/17 10:32 DCW [id number]) Physical Therapy Assessment Impairments Impairments Activity Tolerance Balance Gait Soft Tissue Mobility Strength Goals Five Impairment Gait Short Term Goal (STG) Pt to decrease left over- pronation to WNL STG Duration 01/07/18 Circulation Manager Goal (LTG) Pt to display no circumduction of right foot during swing phase LTG Duration 02/06/18 Four Impairment LE Strength Mcc Goal (LTG) LE MMT to be grossly 5/5 LTG Duration Met Three Impairment Functional Gait Assessment Circulation Manager Goal (LTG) Pt to score 23/30 on the FGA LTG Duration 02/03/18 - Improving Two Impairment [place] Balance Short Term Goal (STG) Pt to score 50/56 on the [place] Balance Scale STG Duration 02/03/18 - Improving One Impairment Activity participation Short Term Goal (STG) Pt to report no loss of balance during ambulation over a period of two weeks STG Duration 01/07/18 Mcc Goal (LTG) Pt to report no kicking out of his right foot while walking LTG Duration 02/06/18 Assessment Summary Assessment Pt displaying improved score in all tests, especially in the FGA, improving from 15/30 to 20/30. Pt should continue with skilled therapy to help improved secondary deficits from Parkinson's disease, and help improve gait pattern. Physical Therapy Plan Frequency and Duration Frequency of Treatment 2x/Week Duration of Treatment 10 weeks Plan of Care Start Date 10/03/17 Plan of Care End Date 12/12/17 Therapeutic Interventions Therapeutic Interventions Aquatic Therapy Balance Training Coordination Training Gait Training Home Exercise Program Neuromuscular Re-education Patient/Caregiver Education Soft Tissue Mobilization Therapeutic Activities Therapeutic Exercises Next Visit Focus/Plan Next Note Type Treatment Note Next Visit Plan LE strengthening, balance training, gait training. Plan of Care Dates Plan of Care Start Date 10/03/17 Plan of Care End Date 12/12/17 Please Sign and Return: I have reviewed this Plan of Care and certify that the skilled therapy services above are required to meet the patient?s needs. Physician Signature Date Printed Name and Credentials Clinical Instructor Signature Printed Name and Credentials
--- NOTE | 2017-12-15 10:27 | PT.OTN ---
Current Diagnoses Parkinson's disease (12/15/17) Physical Therapy Treatment Note PT-OP-A Visit Information Start: 10/03/17 13:46 Freq: Status: Active Protocol: Document 12/15/17 09:45 DCW (Rec: 12/15/17 10:27 DCW [id number]) Out-Patient Physical Therapy Visit Information Visit Information Visit Type Treatment Note Visit Start Time 09:45 Visit Stop Time 10:30 Total Visit Minutes 45 Visit Number 7 Number of UTILITY LOCATOR Visits 0 Evaluation Information Evaluation Date 10/03/17 PT-OP-B Current Condition Start: 10/03/17 13:46 Freq: Status: Active Protocol: Document 10/03/17 12:00 DCW (Rec: 10/03/17 14:16 DCW [id number]) Current Condition History of Current Condition Onset Date Diagnosed two years ago Current Complaints Decreased balance and gait secondary to Parkinson's disease History of Current Condition Pt is an 81 year old male presenting two years s/p diagnosis of Parkinson's disease. Pt notes that overall , he is doing well, but has some difficulty with his walking and some of his balance. Pt notes that his balance seems to have worsened recently after having trouble with increase tear production in his right eye, which impact his vision and makes him feel less balanced. Pt would like to improve his walking ability as well, and complains of his right leg kicking out during his gait pattern. Future Testing and Treatments Planned Addition of LVST Big program if necessary following his current Physical Therapy program. Treatment Goals Patient/Caregiver Goals Improve gait, improve balance Prior Functional Status Baseline Function- ADL's Independent Baseline Function- Mobility Independent Baseline Function- Gait WNL Current Functional Impairments (Reported) Functional Limitations- Mobility/Gait Pt complains of difficulty walking, patricularly with circumduction of his right foot during swing phase. PT-OP-C Subjective Start: 10/03/17 13:46 Freq: Status: Active Protocol: Document 12/15/17 09:45 DCW (Rec: 12/15/17 10:27 DCW [id number]) OP-PT Subjective Patient Comments Patient Comments Pt's reports that they went on a two mile hike yesterday [place], and she noted that he was not kicking his foot out as frequently as he used to, which they are very happy about. PT-OP-D Balance Start: 10/03/17 13:46 Freq: Status: Active Protocol: Document 12/07/17 09:45 DCW (Rec: 12/07/17 10:14 DCW [id number]) Balance Tests [place] Balance Test [place] Balance Test Score 49/56 [place] Impairment Rating 1 to 19% Impaired (Score 45-55 ) [place] Balance Assessment Evaluation Sitting to Standing Ability Independent w/out Hands Unsupported Stance Safely- 2 minutes Sitting Unsupported, Feet on Floor Safely- 2 minutes Standing to Sitting Ability Safely, Minimal Hand Use Transfer Ability Safely, Minimal Hand Use Unsupported Stance- Eyes Closed Safely, 10 seconds Unsupported Stance- Eyes Open Independent, 1 minute Reaching Forward Standing Safely, 5 inches Pick- Up Object From Floor Independent/Safe Look Behind Shoulder - Standing Turns Sideways Only Turning 360 Degrees Turns slowly, but safely Unsupported Stance, Alternating Feet on (I)- 8 Steps in 20 secs Stair Unsupported Tandem Stance Achieves Tandem Unilateral Leg Stance Lifts Leg/Holds > 3 secs Total Score [place] Total Score (out of 56 points) 49 [place] Impairment Rating 1 to 19% Impaired (Score 45-55 ) PT-OP-E Functional Tests Start: 10/03/17 13:46 Freq: Status: Active Protocol: Document 12/07/17 09:45 DCW (Rec: 12/07/17 10:14 DCW [id number]) Functional Tests Functional Gait Assessment Score 20/30 = 67% Functional Gait Assessment Impairment 20 to <40% Impaired (Score 19- Rating 24) Timed Up and Go (TUG) Score 3-trial average = 8.66 seconds TUG Impairment Rating 0% Impaired (Score 10) PT-OP-G Mobility & Gait Start: 10/03/17 13:46 Freq: Status: Active Protocol: Document 12/07/17 09:45 DCW (Rec: 12/07/17 10:14 DCW [id number]) OP Gait Assessment Gait Gait Assistance Required: Standby Assistance Distance (Feet) (feet) 100 Able to Maintain Weight Bearing Status Yes During Gait Assistive Devices Assistive Device Gait Belt Orthotic/Prosthetic Devices or Brace: No Gait Deviations General Gait Pattern Decreased Feet Clearance Factors Limiting Gait Function Factors Limiting Gait Function Decreased Strength Poor Balance Comments Gait Comments Right foot circumducts during swing phase to clear toes. Left foot displays increased pronation in stance phase. Stair Climbing Evaluation Evaluation Level of Assist On Stairs Independent Devices Stair Climbing Assistive Devices Left Railing Technique/Endurance Stair Climbing Direction Ascend and Descend Stair Climbing Technique Step Over Step Number of Steps Climbed 4 Stair Climbing Set # Repetitions (reps) 2 PT-OP-H Neuro Start: 10/03/17 13:46 Freq: Status: Active Protocol: Document 12/07/17 09:45 DCW (Rec: 12/07/17 10:15 DCW [id number]) Coordination Evaluation Lower Extremity Tests Right Alternate Heel to Knee; Heel to Toe Test Normal Performance Heel on Sosa Test Normal Performance Left Alternate Heel to Knee; Heel to Toe Test Normal Performance Heel on Sosa Test Normal Performance PT-OP-M Strength Start: 10/03/17 13:46 Freq: Status: Active Protocol: Document 12/07/17 09:45 DCW (Rec: 12/07/17 10:14 DCW [id number]) Hip Strength Hip Manual Muscle Testing Right Flexion (L2) 5 Normal Abduction 5 Normal Adduction 5 Normal Left Flexion (L2) 5 Normal Abduction 5 Normal Adduction 5 Normal Knee Strength Knee Manual Muscle Testing Right Flexion (S2) 5 Normal Extension (L3) 5 Normal Left Flexion (S2) 5 Normal Extension (L3) 5 Normal Ankle/Foot Strength Ankle and Foot Manual Muscle Testing Right Dorsiflexion (L4) 5 Normal Plantarflexion (S1) 5 Normal Left Dorsiflexion (L4) 5 Normal Plantarflexion (S1) 4+ Good+ PT-OP-Q Treatments Start: 10/03/17 13:46 Freq: Status: Active Protocol: Document 12/15/17 09:45 DCW (Rec: 12/15/17 10:27 DCW [id number]) Gym Equipment Shuttle Recovery Unilateral Squats Resistance 87# Shuttle Recovery Platform Stable Bilateral Squats Resistance 150# Shuttle Recovery Platform Stable Shuttle Balance 2 Details Red - Wide EMILY (EO/EC), Staggered Stance Sport Cord 1 Exercise Details Forward, Retro, Lateral stepping Cord/Resistance Black/Green Reps/Duration x3 each direction Therapeutic Exercises Sitting Exercises 1 Sitting Exercise Name Ankle DF Side right Resistance Lv 2 Equipment Used T-band Other Exercises 2 Other Exercise Name Resisted Forward/Retro walking Side bilateral Resistance Green Equipment Used T-band 1 Other Exercise Name Resisted side-stepping Side bilateral Resistance Green Equipment Used T-band Neuro Re-Education Treatment Balance Activities 5 Details SLS on foam Equipment Blue 2 Details Fwd/Retro heel-toe ambulation in // bars PT-OP-T Assessment and Plan Start: 10/03/17 13:46 Freq: Status: Active Protocol: Document 12/15/17 09:45 DCW (Rec: 12/15/17 10:27 DCW [id number]) Physical Therapy Assessment Impairments Impairments Activity Tolerance Balance Gait Soft Tissue Mobility Strength Goals Five Impairment Gait Short Term Goal (STG) Pt to decrease left over- pronation to WNL STG Duration 01/07/18 Fashion Consultant Goal (LTG) Pt to display no circumduction of right foot during swing phase LTG Duration 02/06/18 Four Impairment LE Strength Fashion Consultant Goal (LTG) LE MMT to be grossly 5/5 LTG Duration Met Three Impairment Functional Gait Assessment Skilled Nursing Goal (LTG) Pt to score 23/30 on the FGA LTG Duration 02/03/18 - Improving Two Impairment [place] Balance Short Term Goal (STG) Pt to score 50/56 on the [place] Balance Scale STG Duration 02/03/18 - Improving One Impairment Activity participation Short Term Goal (STG) Pt to report no loss of balance during ambulation over a period of two weeks STG Duration 01/07/18 Skilled Nursing Goal (LTG) Pt to report no kicking out of his right foot while walking LTG Duration 02/06/18 Assessment Summary Assessment Pt continues to progress with strength and balance Physical Therapy Plan Frequency and Duration Frequency of Treatment 2x/Week Duration of Treatment 10 weeks Plan of Care Start Date 12/07/17 Plan of Care End Date 02/15/18 Therapeutic Interventions Therapeutic Interventions Aquatic Therapy Balance Training Coordination Training Gait Training Home Exercise Program Neuromuscular Re-education Patient/Caregiver Education Soft Tissue Mobilization Therapeutic Activities Therapeutic Exercises Next Visit Focus/Plan Next Note Type Treatment Note Next Visit Plan LE strengthening, balance training, gait training.
--- NOTE | 2017-12-21 10:35 | PT.OTN ---
Current Diagnoses Parkinson's disease (12/21/17) Physical Therapy Treatment Note PT-OP-A Visit Information Start: 10/03/17 13:46 Freq: Status: Active Protocol: Document 12/21/17 09:45 DCW (Rec: 12/21/17 10:34 DCW [id number]) Out-Patient Physical Therapy Visit Information Visit Information Visit Type Treatment Note Visit Start Time 09:45 Visit Stop Time 10:30 Total Visit Minutes 45 Visit Number 8 Number of STEREO COMPILER Visits 0 Evaluation Information Evaluation Date 10/03/17 PT-OP-B Current Condition Start: 10/03/17 13:46 Freq: Status: Active Protocol: Document 10/03/17 12:00 DCW (Rec: 10/03/17 14:16 DCW [id number]) Current Condition History of Current Condition Onset Date Diagnosed two years ago Current Complaints Decreased balance and gait secondary to Parkinson's disease History of Current Condition Pt is an 81 year old male presenting two years s/p diagnosis of Parkinson's disease. Pt notes that overall , he is doing well, but has some difficulty with his walking and some of his balance. Pt notes that his balance seems to have worsened recently after having trouble with increase tear production in his right eye, which impact his vision and makes him feel less balanced. Pt would like to improve his walking ability as well, and complains of his right leg kicking out during his gait pattern. Future Testing and Treatments Planned Addition of LVST Big program if necessary following his current Physical Therapy program. Treatment Goals Patient/Caregiver Goals Improve gait, improve balance Prior Functional Status Baseline Function- ADL's Independent Baseline Function- Mobility Independent Baseline Function- Gait WNL Current Functional Impairments (Reported) Functional Limitations- Mobility/Gait Pt complains of difficulty walking, patricularly with circumduction of his right foot during swing phase. PT-OP-C Subjective Start: 10/03/17 13:46 Freq: Status: Active Protocol: Document 12/21/17 09:45 DCW (Rec: 12/21/17 10:34 DCW [id number]) OP-PT Subjective Patient Comments Patient Comments I'm doing better today than I was yesterday, my golf game just went to hell. PT-OP-D Balance Start: 10/03/17 13:46 Freq: Status: Active Protocol: Document 12/07/17 09:45 DCW (Rec: 12/07/17 10:14 DCW [id number]) Balance Tests [place] Balance Test [place] Balance Test Score 49/56 [place] Impairment Rating 1 to 19% Impaired (Score 45-55 ) [place] Balance Assessment Evaluation Sitting to Standing Ability Independent w/out Hands Unsupported Stance Safely- 2 minutes Sitting Unsupported, Feet on Floor Safely- 2 minutes Standing to Sitting Ability Safely, Minimal Hand Use Transfer Ability Safely, Minimal Hand Use Unsupported Stance- Eyes Closed Safely, 10 seconds Unsupported Stance- Eyes Open Independent, 1 minute Reaching Forward Standing Safely, 5 inches Pick- Up Object From Floor Independent/Safe Look Behind Shoulder - Standing Turns Sideways Only Turning 360 Degrees Turns slowly, but safely Unsupported Stance, Alternating Feet on (I)- 8 Steps in 20 secs Stair Unsupported Tandem Stance Achieves Tandem Unilateral Leg Stance Lifts Leg/Holds > 3 secs Total Score [place] Total Score (out of 56 points) 49 [place] Impairment Rating 1 to 19% Impaired (Score 45-55 ) PT-OP-E Functional Tests Start: 10/03/17 13:46 Freq: Status: Active Protocol: Document 12/07/17 09:45 DCW (Rec: 12/07/17 10:14 DCW [id number]) Functional Tests Functional Gait Assessment Score 20/30 = 67% Functional Gait Assessment Impairment 20 to <40% Impaired (Score 19- Rating 24) Timed Up and Go (TUG) Score 3-trial average = 8.66 seconds TUG Impairment Rating 0% Impaired (Score 10) PT-OP-G Mobility & Gait Start: 10/03/17 13:46 Freq: Status: Active Protocol: Document 12/07/17 09:45 DCW (Rec: 12/07/17 10:14 DCW [id number]) OP Gait Assessment Gait Gait Assistance Required: Standby Assistance Distance (Feet) (feet) 100 Able to Maintain Weight Bearing Status Yes During Gait Assistive Devices Assistive Device Gait Belt Orthotic/Prosthetic Devices or Brace: No Gait Deviations General Gait Pattern Decreased Feet Clearance Factors Limiting Gait Function Factors Limiting Gait Function Decreased Strength Poor Balance Comments Gait Comments Right foot circumducts during swing phase to clear toes. Left foot displays increased pronation in stance phase. Stair Climbing Evaluation Evaluation Level of Assist On Stairs Independent Devices Stair Climbing Assistive Devices Left Railing Technique/Endurance Stair Climbing Direction Ascend and Descend Stair Climbing Technique Step Over Step Number of Steps Climbed 4 Stair Climbing Set # Repetitions (reps) 2 PT-OP-H Neuro Start: 10/03/17 13:46 Freq: Status: Active Protocol: Document 12/07/17 09:45 DCW (Rec: 12/07/17 10:15 DCW [id number]) Coordination Evaluation Lower Extremity Tests Right Alternate Heel to Knee; Heel to Toe Test Normal Performance Heel on Sosa Test Normal Performance Left Alternate Heel to Knee; Heel to Toe Test Normal Performance Heel on Sosa Test Normal Performance PT-OP-M Strength Start: 10/03/17 13:46 Freq: Status: Active Protocol: Document 12/07/17 09:45 DCW (Rec: 12/07/17 10:14 DCW [id number]) Hip Strength Hip Manual Muscle Testing Right Flexion (L2) 5 Normal Abduction 5 Normal Adduction 5 Normal Left Flexion (L2) 5 Normal Abduction 5 Normal Adduction 5 Normal Knee Strength Knee Manual Muscle Testing Right Flexion (S2) 5 Normal Extension (L3) 5 Normal Left Flexion (S2) 5 Normal Extension (L3) 5 Normal Ankle/Foot Strength Ankle and Foot Manual Muscle Testing Right Dorsiflexion (L4) 5 Normal Plantarflexion (S1) 5 Normal Left Dorsiflexion (L4) 5 Normal Plantarflexion (S1) 4+ Good+ PT-OP-Q Treatments Start: 10/03/17 13:46 Freq: Status: Active Protocol: Document 12/21/17 09:45 DCW (Rec: 12/21/17 10:34 DCW [id number]) Gym Equipment Shuttle Recovery Unilateral Squats Resistance 87# Shuttle Recovery Platform Stable Bilateral Squats Resistance 150# Shuttle Recovery Platform Stable Shuttle Balance 2 Details Red - Wide EMILY (EO/EC), Staggered Stance Therapeutic Exercises Sitting Exercises 1 Sitting Exercise Name Ankle DF Side right Resistance Lv 2 Equipment Used T-band Other Exercises 2 Other Exercise Name Resisted Forward/Retro walking Side bilateral Resistance Green Equipment Used T-band 1 Other Exercise Name Resisted side-stepping Side bilateral Resistance Green Equipment Used T-band Neuro Re-Education Treatment Balance Activities 5 Details SLS on foam Equipment Blue 3 Details Hurdles/Foam at rail Comments Forward, Side-stepping 2 Details Fwd/Retro heel-toe ambulation in // bars PT-OP-T Assessment and Plan Start: 10/03/17 13:46 Freq: Status: Active Protocol: Document 12/21/17 09:45 DCW (Rec: 12/21/17 10:34 DCW [id number]) Physical Therapy Assessment Impairments Impairments Activity Tolerance Balance Gait Soft Tissue Mobility Strength Goals Five Impairment Gait Short Term Goal (STG) Pt to decrease left over- pronation to WNL STG Duration 01/07/18 Global Position System Technician Goal (LTG) Pt to display no circumduction of right foot during swing phase LTG Duration 02/06/18 Four Impairment LE Strength Assisted Goal (LTG) LE MMT to be grossly 5/5 LTG Duration Met Three Impairment Functional Gait Assessment Assisted Goal (LTG) Pt to score 23/30 on the FGA LTG Duration 02/03/18 - Improving Two Impairment [place] Balance Short Term Goal (STG) Pt to score 50/56 on the [place] Balance Scale STG Duration 02/03/18 - Improving One Impairment Activity participation Short Term Goal (STG) Pt to report no loss of balance during ambulation over a period of two weeks STG Duration 01/07/18 Assisted Goal (LTG) Pt to report no kicking out of his right foot while walking LTG Duration 02/06/18 Assessment Summary Assessment Pt doing well, however frequently brings the topic of conversation back to his disease, and that the doctor says I won't from it, but it will probably be from choking on something. Physical Therapy Plan Frequency and Duration Frequency of Treatment 2x/Week Duration of Treatment 10 weeks Plan of Care Start Date 12/07/17 Plan of Care End Date 02/15/18 Therapeutic Interventions Therapeutic Interventions Aquatic Therapy Balance Training Coordination Training Gait Training Home Exercise Program Neuromuscular Re-education Patient/Caregiver Education Soft Tissue Mobilization Therapeutic Activities Therapeutic Exercises Next Visit Focus/Plan Next Note Type Treatment Note Next Visit Plan LE strengthening, balance training, gait training.
--- NOTE | 2017-12-28 10:27 | PT.OTN ---
Current Diagnoses Parkinson's disease (12/28/17) Physical Therapy Treatment Note PT-OP-A Visit Information Start: 10/03/17 13:46 Freq: Status: Active Protocol: Document 12/28/17 09:47 DCW (Rec: 12/28/17 10:27 DCW [id number]) Out-Patient Physical Therapy Visit Information Visit Information Visit Type Treatment Note Visit Start Time 09:45 Visit Stop Time 10:30 Total Visit Minutes 45 Visit Number 9 Number of SHOE STAMPER Visits 0 Evaluation Information Evaluation Date 10/03/17 PT-OP-B Current Condition Start: 10/03/17 13:46 Freq: Status: Active Protocol: Document 10/03/17 12:00 DCW (Rec: 10/03/17 14:16 DCW [id number]) Current Condition History of Current Condition Onset Date Diagnosed two years ago Current Complaints Decreased balance and gait secondary to Parkinson's disease History of Current Condition Pt is an 81 year old male presenting two years s/p diagnosis of Parkinson's disease. Pt notes that overall , he is doing well, but has some difficulty with his walking and some of his balance. Pt notes that his balance seems to have worsened recently after having trouble with increase tear production in his right eye, which impact his vision and makes him feel less balanced. Pt would like to improve his walking ability as well, and complains of his right leg kicking out during his gait pattern. Future Testing and Treatments Planned Addition of LVST Big program if necessary following his current Physical Therapy program. Treatment Goals Patient/Caregiver Goals Improve gait, improve balance Prior Functional Status Baseline Function- ADL's Independent Baseline Function- Mobility Independent Baseline Function- Gait WNL Current Functional Impairments (Reported) Functional Limitations- Mobility/Gait Pt complains of difficulty walking, patricularly with circumduction of his right foot during swing phase. PT-OP-C Subjective Start: 10/03/17 13:46 Freq: Status: Active Protocol: Document 12/28/17 09:47 DCW (Rec: 12/28/17 10:27 DCW [id number]) OP-PT Subjective Patient Comments Patient Comments Pt notes he feels good today, despite having trouble walking. PT-OP-D Balance Start: 10/03/17 13:46 Freq: Status: Active Protocol: Document 12/07/17 09:45 DCW (Rec: 12/07/17 10:14 [facility] [id number]) Balance Tests [place] Balance Test [place] Balance Test Score 49/56 [place] Impairment Rating 1 to 19% Impaired (Score 45-55 ) [place] Balance Assessment Evaluation Sitting to Standing Ability Independent w/out Hands Unsupported Stance Safely- 2 minutes Sitting Unsupported, Feet on Floor Safely- 2 minutes Standing to Sitting Ability Safely, Minimal Hand Use Transfer Ability Safely, Minimal Hand Use Unsupported Stance- Eyes Closed Safely, 10 seconds Unsupported Stance- Eyes Open Independent, 1 minute Reaching Forward Standing Safely, 5 inches Pick- Up Object From Floor Independent/Safe Look Behind Shoulder - Standing Turns Sideways Only Turning 360 Degrees Turns slowly, but safely Unsupported Stance, Alternating Feet on (I)- 8 Steps in 20 secs Stair Unsupported Tandem Stance Achieves Tandem Unilateral Leg Stance Lifts Leg/Holds > 3 secs Total Score [place] Total Score (out of 56 points) 49 [place] Impairment Rating 1 to 19% Impaired (Score 45-55 ) PT-OP-E Functional Tests Start: 10/03/17 13:46 Freq: Status: Active Protocol: Document 12/07/17 09:45 DCW (Rec: 12/07/17 10:14 DC [id number]) Functional Tests Functional Gait Assessment Score 20/30 = 67% Functional Gait Assessment Impairment 20 to <40% Impaired (Score 19- Rating 24) Timed Up and Go (TUG) Score 3-trial average = 8.66 seconds TUG Impairment Rating 0% Impaired (Score 10) PT-OP-G Mobility & Gait Start: 10/03/17 13:46 Freq: Status: Active Protocol: Document 12/07/17 09:45 DCW (Rec: 12/07/17 10:14 DC [id number]) OP Gait Assessment Gait Gait Assistance Required: Standby Assistance Distance (Feet) 100 Able to Maintain Weight Bearing Status Yes During Gait Assistive Devices Assistive Device Gait Belt Orthotic/Prosthetic Devices or Brace: No Gait Deviations General Gait Pattern Decreased Feet Clearance Factors Limiting Gait Function Factors Limiting Gait Function Decreased Strength Poor Balance Comments Gait Comments Right foot circumducts during swing phase to clear toes. Left foot displays increased pronation in stance phase. Stair Climbing Evaluation Evaluation Level of Assist On Stairs Independent Devices Stair Climbing Assistive Devices Left Railing Technique/Endurance Stair Climbing Direction Ascend and Descend Stair Climbing Technique Step Over Step Number of Steps Climbed 4 Stair Climbing Set # Repetitions (reps) 2 PT-OP-H Neuro Start: 10/03/17 13:46 Freq: Status: Active Protocol: Document 12/07/17 09:45 DCW (Rec: 12/07/17 10:15 DCW [id number]) Coordination Evaluation Lower Extremity Tests Right Alternate Heel to Knee; Heel to Toe Test Normal Performance Heel on Sosa Test Normal Performance Left Alternate Heel to Knee; Heel to Toe Test Normal Performance Heel on Sosa Test Normal Performance PT-OP-M Strength Start: 10/03/17 13:46 Freq: Status: Active Protocol: Document 12/07/17 09:45 DCW (Rec: 12/07/17 10:14 DCW [id number]) Hip Strength Hip Manual Muscle Testing Right Flexion (L2) 5 Normal Abduction 5 Normal Adduction 5 Normal Left Flexion (L2) 5 Normal Abduction 5 Normal Adduction 5 Normal Knee Strength Knee Manual Muscle Testing Right Flexion (S2) 5 Normal Extension (L3) 5 Normal Left Flexion (S2) 5 Normal Extension (L3) 5 Normal Ankle/Foot Strength Ankle and Foot Manual Muscle Testing Right Dorsiflexion (L4) 5 Normal Plantarflexion (S1) 5 Normal Left Dorsiflexion (L4) 5 Normal Plantarflexion (S1) 4+ Good+ PT-OP-Q Treatments Start: 10/03/17 13:46 Freq: Status: Active Protocol: Document 12/28/17 09:47 DCW (Rec: 12/28/17 10:27 DCW [id number]) Gym Equipment Shuttle Recovery Unilateral Squats Resistance 87# Shuttle Recovery Platform Stable Bilateral Squats Resistance 150# Shuttle Recovery Platform Stable Shuttle Balance 2 Details Red - Wide EMILY (EO/EC), Staggered Stance Therapeutic Exercises Other Exercises 2 Other Exercise Name Resisted Forward/Retro walking Side bilateral Resistance Green Equipment Used T-band 1 Other Exercise Name Resisted side-stepping Side bilateral Resistance Green Equipment Used T-band Neuro Re-Education Treatment Balance Activities 5 Details SLS on foam Equipment Blue 3 Details Hurdles/Foam at rail Comments Forward, Side-stepping 2 Details Fwd/Retro heel-toe ambulation in // bars PT-OP-T Assessment and Plan Start: 10/03/17 13:46 Freq: Status: Active Protocol: Document 12/28/17 09:47 DCW (Rec: 12/28/17 10:27 DCW [id number]) Physical Therapy Assessment Impairments Impairments Activity Tolerance Balance Gait Soft Tissue Mobility Strength Goals Five Impairment Gait Short Term Goal (STG) Pt to decrease left over- pronation to WNL STG Duration 01/07/18 Engineering Designer Goal (LTG) Pt to display no circumduction of right foot during swing phase LTG Duration 02/06/18 Four Impairment LE Strength Engineering Designer Goal (LTG) LE MMT to be grossly 5/5 LTG Duration Met Three Impairment Functional Gait Assessment Engineering Designer Goal (LTG) Pt to score 23/30 on the FGA LTG Duration 02/03/18 - Improving Two Impairment [place] Balance Short Term Goal (STG) Pt to score 50/56 on the [place] Balance Scale STG Duration 02/03/18 - Improving One Impairment Activity participation Short Term Goal (STG) Pt to report no loss of balance during ambulation over a period of two weeks STG Duration 01/07/18 Engineering Designer Goal (LTG) Pt to report no kicking out of his right foot while walking LTG Duration 02/06/18 Assessment Summary Assessment Pt in better spirits today, able to perform activity without perseverating on his disease. Physical Therapy Plan Frequency and Duration Frequency of Treatment 2x/Week Duration of Treatment 10 weeks Plan of Care Start Date 12/07/17 Plan of Care End Date 02/15/18 Therapeutic Interventions Therapeutic Interventions Aquatic Therapy Balance Training Coordination Training Gait Training Home Exercise Program Neuromuscular Re-education Patient/Caregiver Education Soft Tissue Mobilization Therapeutic Activities Therapeutic Exercises Next Visit Focus/Plan Next Note Type Treatment Note Next Visit Plan LE strengthening, balance training, gait training.
--- NOTE | 2018-01-04 10:31 | PT.OTN ---
Current Diagnoses Parkinson's disease (01/04/18) Physical Therapy Treatment Note PT-OP-A Visit Information Start: 10/03/17 13:46 Freq: Status: Active Protocol: Document 01/04/18 09:50 DCW (Rec: 01/04/18 10:31 DCW [id number]) Out-Patient Physical Therapy Visit Information Visit Information Visit Type Treatment Note Visit Note 5 minutes late Visit Start Time 09:50 Visit Stop Time 10:30 Total Visit Minutes 40 Visit Number 10 Number of HUMAN RESOURCES TRAINER Visits 0 Evaluation Information Evaluation Date 10/03/17 PT-OP-B Current Condition Start: 10/03/17 13:46 Freq: Status: Active Protocol: Document 10/03/17 12:00 DCW (Rec: 10/03/17 14:16 DCW [id number]) Current Condition History of Current Condition Onset Date Diagnosed two years ago Current Complaints Decreased balance and gait secondary to Parkinson's disease History of Current Condition Pt is an 81 year old male presenting two years s/p diagnosis of Parkinson's disease. Pt notes that overall , he is doing well, but has some difficulty with his walking and some of his balance. Pt notes that his balance seems to have worsened recently after having trouble with increase tear production in his right eye, which impact his vision and makes him feel less balanced. Pt would like to improve his walking ability as well, and complains of his right leg kicking out during his gait pattern. Future Testing and Treatments Planned Addition of LVST Big program if necessary following his current Physical Therapy program. Treatment Goals Patient/Caregiver Goals Improve gait, improve balance Prior Functional Status Baseline Function- ADL's Independent Baseline Function- Mobility Independent Baseline Function- Gait WNL Current Functional Impairments (Reported) Functional Limitations- Mobility/Gait Pt complains of difficulty walking, patricularly with circumduction of his right foot during swing phase. PT-OP-C Subjective Start: 10/03/17 13:46 Freq: Status: Active Protocol: Document 01/04/18 09:50 DCW (Rec: 01/04/18 10:31 DCW [id number]) OP-PT Subjective Patient Comments Patient Comments I feel good today. PT-OP-D Balance Start: 10/03/17 13:46 Freq: Status: Active Protocol: Document 12/07/17 09:45 DCW (Rec: 12/07/17 10:14 DCW [id number]) Balance Tests [place] Balance Test [place] Balance Test Score 49/56 [place] Impairment Rating 1 to 19% Impaired (Score 45-55 ) [place] Balance Assessment Evaluation Sitting to Standing Ability Independent w/out Hands Unsupported Stance Safely- 2 minutes Sitting Unsupported, Feet on Floor Safely- 2 minutes Standing to Sitting Ability Safely, Minimal Hand Use Transfer Ability Safely, Minimal Hand Use Unsupported Stance- Eyes Closed Safely, 10 seconds Unsupported Stance- Eyes Open Independent, 1 minute Reaching Forward Standing Safely, 5 inches Pick- Up Object From Floor Independent/Safe Look Behind Shoulder - Standing Turns Sideways Only Turning 360 Degrees Turns slowly, but safely Unsupported Stance, Alternating Feet on (I)- 8 Steps in 20 secs Stair Unsupported Tandem Stance Achieves Tandem Unilateral Leg Stance Lifts Leg/Holds > 3 secs Total Score [place] Total Score (out of 56 points) 49 [place] Impairment Rating 1 to 19% Impaired (Score 45-55 ) PT-OP-E Functional Tests Start: 10/03/17 13:46 Freq: Status: Active Protocol: Document 12/07/17 09:45 DCW (Rec: 12/07/17 10:14 DC [id number]) Functional Tests Functional Gait Assessment Score 20/30 = 67% Functional Gait Assessment Impairment 20 to <40% Impaired (Score 19- Rating 24) Timed Up and Go (TUG) Score 3-trial average = 8.66 seconds TUG Impairment Rating 0% Impaired (Score 10) PT-OP-G Mobility & Gait Start: 10/03/17 13:46 Freq: Status: Active Protocol: Document 12/07/17 09:45 DCW (Rec: 12/07/17 10:14 DC [id number]) OP Gait Assessment Gait Gait Assistance Required: Standby Assistance Distance (Feet) 100 Able to Maintain Weight Bearing Status Yes During Gait Assistive Devices Assistive Device Gait Belt Orthotic/Prosthetic Devices or Brace: No Gait Deviations General Gait Pattern Decreased Feet Clearance Factors Limiting Gait Function Factors Limiting Gait Function Decreased Strength Poor Balance Comments Gait Comments Right foot circumducts during swing phase to clear toes. Left foot displays increased pronation in stance phase. Stair Climbing Evaluation Evaluation Level of Assist On Stairs Independent Devices Stair Climbing Assistive Devices Left Railing Technique/Endurance Stair Climbing Direction Ascend and Descend Stair Climbing Technique Step Over Step Number of Steps Climbed 4 Stair Climbing Set # Repetitions (reps) 2 PT-OP-H Neuro Start: 10/03/17 13:46 Freq: Status: Active Protocol: Document 12/07/17 09:45 DCW (Rec: 12/07/17 10:15 DCW [id number]) Coordination Evaluation Lower Extremity Tests Right Alternate Heel to Knee; Heel to Toe Test Normal Performance Heel on Sosa Test Normal Performance Left Alternate Heel to Knee; Heel to Toe Test Normal Performance Heel on Sosa Test Normal Performance PT-OP-M Strength Start: 10/03/17 13:46 Freq: Status: Active Protocol: Document 12/07/17 09:45 DCW (Rec: 12/07/17 10:14 DCW [id number]) Hip Strength Hip Manual Muscle Testing Right Flexion (L2) 5 Normal Abduction 5 Normal Adduction 5 Normal Left Flexion (L2) 5 Normal Abduction 5 Normal Adduction 5 Normal Knee Strength Knee Manual Muscle Testing Right Flexion (S2) 5 Normal Extension (L3) 5 Normal Left Flexion (S2) 5 Normal Extension (L3) 5 Normal Ankle/Foot Strength Ankle and Foot Manual Muscle Testing Right Dorsiflexion (L4) 5 Normal Plantarflexion (S1) 5 Normal Left Dorsiflexion (L4) 5 Normal Plantarflexion (S1) 4+ Good+ PT-OP-Q Treatments Start: 10/03/17 13:46 Freq: Status: Active Protocol: Document 01/04/18 09:50 DCW (Rec: 01/04/18 10:31 DCW [id number]) Gym Equipment Shuttle Recovery Unilateral Squats Resistance 87# Shuttle Recovery Platform Stable Bilateral Squats Resistance 150# Shuttle Recovery Platform Stable Shuttle Balance 2 Details Red - Wide EMILY (EO/EC), Staggered Stance Sport Cord 1 Exercise Details Forward, Retro, Lateral stepping Cord/Resistance White/Green Reps/Duration x3 each direction Comments Hurdles Therapeutic Exercises Other Exercises 2 Other Exercise Name Resisted Forward/Retro walking Side bilateral Resistance Green Equipment Used T-band 1 Other Exercise Name Resisted side-stepping Side bilateral Resistance Green Equipment Used T-band Neuro Re-Education Treatment Balance Activities 5 Details SLS on foam Equipment Blue 2 Details Fwd/Retro heel-toe ambulation in // bars PT-OP-T Assessment and Plan Start: 10/03/17 13:46 Freq: Status: Active Protocol: Document 01/04/18 09:50 DCW (Rec: 01/04/18 10:31 DCW [id number]) Physical Therapy Assessment Impairments Impairments Activity Tolerance Balance Gait Soft Tissue Mobility Strength Goals Five Impairment Gait Short Term Goal (STG) Pt to decrease left over- pronation to WNL STG Duration 01/07/18 Truck Despatcher Goal (LTG) Pt to display no circumduction of right foot during swing phase LTG Duration 02/06/18 Four Impairment LE Strength Truck Despatcher Goal (LTG) LE MMT to be grossly 5/5 LTG Duration Met Three Impairment Functional Gait Assessment Residential Goal (LTG) Pt to score 23/30 on the FGA LTG Duration 02/03/18 - Improving Two Impairment [place] Balance Short Term Goal (STG) Pt to score 50/56 on the [place] Balance Scale STG Duration 02/03/18 - Improving One Impairment Activity participation Short Term Goal (STG) Pt to report no loss of balance during ambulation over a period of two weeks STG Duration 01/07/18 Truck Despatcher Goal (LTG) Pt to report no kicking out of his right foot while walking LTG Duration 02/06/18 Assessment Summary Assessment Attempted some higher-level activities today, especially the Sport-cord and hurdles, which pt struggled with, but was happy he was able to do it . Physical Therapy Plan Frequency and Duration Frequency of Treatment 2x/Week Duration of Treatment 10 weeks Plan of Care Start Date 12/07/17 Plan of Care End Date 02/15/18 Therapeutic Interventions Therapeutic Interventions Aquatic Therapy Balance Training Coordination Training Gait Training Home Exercise Program Neuromuscular Re-education Patient/Caregiver Education Soft Tissue Mobilization Therapeutic Activities Therapeutic Exercises Next Visit Focus/Plan Next Note Type Treatment Note Next Visit Plan LE strengthening, balance training, gait training.
--- NOTE | 2018-01-11 10:32 | PT.OTN ---
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 Pt notes that overall , he is doing well, but has some difficulty with his walking and some of his balance. Pt notes that his balance seems to have worsened recently after having trouble with increase tear production in his right eye, which impact his vision and makes him feel less balanced. Pt would like to improve his walking ability as well, and complains of his right leg kicking out during his gait pattern. Future Testing and Treatments Planned Addition of LVST Big program if necessary following his current Physical Therapy program. Treatment Goals Patient/Caregiver Goals Improve gait, improve balance Prior Functional Status Baseline Function- ADL's Independent Baseline Function- Mobility Independent Baseline Function- Gait WNL Current Functional Impairments (Reported) Functional Limitations- Mobility/Gait Pt complains of difficulty walking, patricularly with circumduction of his right foot during swing phase. PT-OP-C Subjective Start: 10/03/17 13:46 Freq: Status: Active Protocol: Document 01/11/18 09:50 DCW (Rec: 01/11/18 10:32 DCW [id number]) OP-PT Subjective Patient Comments Patient Comments I'm feeling better than I was a few days ago, but sometimes I forget to take my pills. PT-OP-D Balance Start: 10/03/17 13:46 Freq: Status: Active Protocol: Document 12/07/17 09:45 DCW (Rec: 12/07/17 10:14 DCW [id number]) Balance Tests [place] Balance Test [place] Balance Test Score 49/56 [place] Impairment Rating 1 to 19% Impaired (Score 45-55 ) [place] Balance Assessment Evaluation Sitting to Standing Ability Independent w/out Hands Unsupported Stance Safely- 2 minutes Sitting Unsupported, Feet on Floor Safely- 2 minutes Standing to Sitting Ability Safely, Minimal Hand Use Transfer Ability Safely, Minimal Hand Use Unsupported Stance- Eyes Closed Safely, 10 seconds Unsupported Stance- Eyes Open Independent, 1 minute Reaching Forward Standing Safely, 5 inches Pick- Up Object From Floor Independent/Safe Look Behind Shoulder - Standing Turns Sideways Only Turning 360 Degrees Turns slowly, but safely Unsupported Stance, Alternating Feet on (I)- 8 Steps in 20 secs Stair Unsupported Tandem Stance Achieves Tandem Unilateral Leg Stance Lifts Leg/Holds > 3 secs Total Score [place] Total Score (out of 56 points) 49 [place] Impairment Rating 1 to 19% Impaired (Score 45-55 ) PT-OP-E Functional Tests Start: 10/03/17 13:46 Freq: Status: Active Protocol: Document 12/07/17 09:45 DCW (Rec: 12/07/17 10:14 DCW [id number]) Functional Tests Functional Gait Assessment Score 20/30 = 67% Functional Gait Assessment Impairment 20 to <40% Impaired (Score 19- Rating 24) Timed Up and Go (TUG) Score 3-trial average = 8.66 seconds TUG Impairment Rating 0% Impaired (Score 10) PT-OP-G Mobility & Gait Start: 10/03/17 13:46 Freq: Status: Active Protocol: Document 12/07/17 09:45 DCW (Rec: 12/07/17 10:14 DCW [id number]) OP Gait Assessment Gait Gait Assistance Required: Standby Assistance Distance (Feet) 100 Able to Maintain Weight Bearing Status Yes During Gait Assistive Devices Assistive Device Gait Belt Orthotic/Prosthetic Devices or Brace: No Gait Deviations General Gait Pattern Decreased Feet Clearance Factors Limiting Gait Function Factors Limiting Gait Function Decreased Strength Poor Balance Comments Gait Comments Right foot circumducts during swing phase to clear toes. Left foot displays increased pronation in stance phase. Stair Climbing Evaluation Evaluation Level of Assist On Stairs Independent Devices Stair Climbing Assistive Devices Left Railing Technique/Endurance Stair Climbing Direction Ascend and Descend Stair Climbing Technique Step Over Step Number of Steps Climbed 4 Stair Climbing Set # Repetitions (reps) 2 PT-OP-H Neuro Start: 10/03/17 13:46 Freq: Status: Active Protocol: Document 12/07/17 09:45 DCW (Rec: 12/07/17 10:15 DCW [id number]) Coordination Evaluation Lower Extremity Tests Right Alternate Heel to Knee; Heel to Toe Test Normal Performance Heel on Sosa Test Normal Performance Left Alternate Heel to Knee; Heel to Toe Test Normal Performance Heel on Sosa Test Normal Performance PT-OP-M Strength Start: 10/03/17 13:46 Freq: Status: Active Protocol: Document 12/07/17 09:45 DCW (Rec: 12/07/17 10:14 DCW [id number]) Hip Strength Hip Manual Muscle Testing Right Flexion (L2) 5 Normal Abduction 5 Normal Adduction 5 Normal Left Flexion (L2) 5 Normal Abduction 5 Normal Adduction 5 Normal Knee Strength Knee Manual Muscle Testing Right Flexion (S2) 5 Normal Extension (L3) 5 Normal Left Flexion (S2) 5 Normal Extension (L3) 5 Normal Ankle/Foot Strength Ankle and Foot Manual Muscle Testing Right Dorsiflexion (L4) 5 Normal Plantarflexion (S1) 5 Normal Left Dorsiflexion (L4) 5 Normal Plantarflexion (S1) 4+ Good+ PT-OP-Q Treatments Start: 10/03/17 13:46 Freq: Status: Active Protocol: Document 01/11/18 09:50 DCW (Rec: 01/11/18 10:32 DCW [id number]) Gym Equipment Shuttle Recovery Unilateral Squats Resistance 87# Shuttle Recovery Platform Stable Bilateral Squats Resistance 150# Shuttle Recovery Platform Stable Shuttle Balance 2 Details Red - Wide EMILY (EO/EC), Staggered Stance Therapeutic Exercises Other Exercises 2 Other Exercise Name Resisted Forward/Retro walking Side bilateral Resistance Green Equipment Used T-band 1 Other Exercise Name Resisted side-stepping Side bilateral Resistance Green Equipment Used T-band Neuro Re-Education Treatment Balance Activities 5 Details SLS 3 Details Hurdles/Foam at rail Comments Forward, Side-stepping 2 Details Fwd/Retro heel-toe ambulation in // bars PT-OP-T Assessment and Plan Start: 10/03/17 13:46 Freq: Status: Active Protocol: Document 01/11/18 09:50 DCW (Rec: 01/11/18 10:32 DCW [id number]) Physical Therapy Assessment Impairments Impairments Activity Tolerance Balance Gait Soft Tissue Mobility Strength Goals Five Impairment Gait Short Term Goal (STG) Pt to decrease left over- pronation to WNL STG Duration 01/07/18 Half-Way Goal (LTG) Pt to display no circumduction of right foot during swing phase LTG Duration 02/06/18 Four Impairment LE Strength Fitness Management Director Goal (LTG) LE MMT to be grossly 5/5 LTG Duration Met Three Impairment Functional Gait Assessment Fitness Management Director Goal (LTG) Pt to score 23/30 on the FGA LTG Duration 02/03/18 - Improving Two Impairment [place] Balance Short Term Goal (STG) Pt to score 50/56 on the [place] Balance Scale STG Duration 02/03/18 - Improving One Impairment Activity participation Short Term Goal (STG) Pt to report no loss of balance during ambulation over a period of two weeks STG Duration 01/07/18 Half-Way Goal (LTG) Pt to report no kicking out of his right foot while walking LTG Duration 02/06/18 Assessment Summary Assessment Pt did well today, required less assistance with stabilization while walking on foam pads. Physical Therapy Plan Frequency and Duration Frequency of Treatment 2x/Week Duration of Treatment 10 weeks Plan of Care Start Date 12/07/17 Plan of Care End Date 02/15/18 Therapeutic Interventions Therapeutic Interventions Aquatic Therapy Balance Training Coordination Training Gait Training Home Exercise Program Neuromuscular Re-education Patient/Caregiver Education Soft Tissue Mobilization Therapeutic Activities Therapeutic Exercises Next Visit Focus/Plan Next Note Type Treatment Note Next Visit Plan LE strengthening, balance training, gait training.
--- NOTE | 2018-01-18 10:31 | PT.OTN ---
Current Diagnoses Parkinson's disease (01/18/18) Physical Therapy Treatment Note PT-OP-A Visit Information Start: 10/03/17 13:46 Freq: Status: Active Protocol: Document 01/18/18 09:55 DCW (Rec: 01/18/18 10:31 DCW [id number]) Out-Patient Physical Therapy Visit Information Visit Information Visit Type Treatment Note Visit Note Pt arrived 10 minutes late Visit Start Time 09:55 Visit Stop Time 10:30 Total Visit Minutes 35 Visit Number 12 Number of PUBLIC RELATIONS ASSISTANT Visits 0 Evaluation Information Evaluation Date 10/03/17 PT-OP-B Current Condition Start: 10/03/17 13:46 Freq: Status: Active Protocol: Document 10/03/17 12:00 DCW (Rec: 10/03/17 14:16 DCW [id number]) Current Condition History of Current Condition Onset Date Diagnosed two years ago Current Complaints Decreased balance and gait secondary to Parkinson's disease History of Current Condition Pt is an 81 year old male presenting two years s/p diagnosis of Parkinson's disease. Pt notes that overall , he is doing well, but has some difficulty with his walking and some of his balance. Pt notes that his balance seems to have worsened recently after having trouble with increase tear production in his right eye, which impact his vision and makes him feel less balanced. Pt would like to improve his walking ability as well, and complains of his right leg kicking out during his gait pattern. Future Testing and Treatments Planned Addition of LVST Big program if necessary following his current Physical Therapy program. Treatment Goals Patient/Caregiver Goals Improve gait, improve balance Prior Functional Status Baseline Function- ADL's Independent Baseline Function- Mobility Independent Baseline Function- Gait WNL Current Functional Impairments (Reported) Functional Limitations- Mobility/Gait Pt complains of difficulty walking, patricularly with circumduction of his right foot during swing phase. PT-OP-C Subjective Start: 10/03/17 13:46 Freq: Status: Active Protocol: Document 01/18/18 09:55 DCW (Rec: 01/18/18 10:31 DCW [id number]) OP-PT Subjective Patient Comments Patient Comments Pt apologizes for tardiness. PT-OP-D Balance Start: 10/03/17 13:46 Freq: Status: Active Protocol: Document 12/07/17 09:45 DCW (Rec: 12/07/17 10:14 DC [id number]) Balance Tests [place] Balance Test [place] Balance Test Score 49/56 [place] Impairment Rating 1 to 19% Impaired (Score 45-55 ) [place] Balance Assessment Evaluation Sitting to Standing Ability Independent w/out Hands Unsupported Stance Safely- 2 minutes Sitting Unsupported, Feet on Floor Safely- 2 minutes Standing to Sitting Ability Safely, Minimal Hand Use Transfer Ability Safely, Minimal Hand Use Unsupported Stance- Eyes Closed Safely, 10 seconds Unsupported Stance- Eyes Open Independent, 1 minute Reaching Forward Standing Safely, 5 inches Pick- Up Object From Floor Independent/Safe Look Behind Shoulder - Standing Turns Sideways Only Turning 360 Degrees Turns slowly, but safely Unsupported Stance, Alternating Feet on (I)- 8 Steps in 20 secs Stair Unsupported Tandem Stance Achieves Tandem Unilateral Leg Stance Lifts Leg/Holds > 3 secs Total Score [place] Total Score (out of 56 points) 49 [place] Impairment Rating 1 to 19% Impaired (Score 45-55 ) PT-OP-E Functional Tests Start: 10/03/17 13:46 Freq: Status: Active Protocol: Document 12/07/17 09:45 DCW (Rec: 12/07/17 10:14 DC [id number]) Functional Tests Functional Gait Assessment Score 20/30 = 67% Functional Gait Assessment Impairment 20 to <40% Impaired (Score 19- Rating 24) Timed Up and Go (TUG) Score 3-trial average = 8.66 seconds TUG Impairment Rating 0% Impaired (Score 10) PT-OP-G Mobility & Gait Start: 10/03/17 13:46 Freq: Status: Active Protocol: Document 12/07/17 09:45 DCW (Rec: 12/07/17 10:14 DC [id number]) OP Gait Assessment Gait Gait Assistance Required: Standby Assistance Distance (Feet) 100 Able to Maintain Weight Bearing Status Yes During Gait Assistive Devices Assistive Device Gait Belt Orthotic/Prosthetic Devices or Brace: No Gait Deviations General Gait Pattern Decreased Feet Clearance Factors Limiting Gait Function Factors Limiting Gait Function Decreased Strength Poor Balance Comments Gait Comments Right foot circumducts during swing phase to clear toes. Left foot displays increased pronation in stance phase. Stair Climbing Evaluation Evaluation Level of Assist On Stairs Independent Devices Stair Climbing Assistive Devices Left Railing Technique/Endurance Stair Climbing Direction Ascend and Descend Stair Climbing Technique Step Over Step Number of Steps Climbed 4 Stair Climbing Set # Repetitions (reps) 2 PT-OP-H Neuro Start: 10/03/17 13:46 Freq: Status: Active Protocol: Document 12/07/17 09:45 DCW (Rec: 12/07/17 10:15 DCW [id number]) Coordination Evaluation Lower Extremity Tests Right Alternate Heel to Knee; Heel to Toe Test Normal Performance Heel on Sosa Test Normal Performance Left Alternate Heel to Knee; Heel to Toe Test Normal Performance Heel on Sosa Test Normal Performance PT-OP-M Strength Start: 10/03/17 13:46 Freq: Status: Active Protocol: Document 12/07/17 09:45 DCW (Rec: 12/07/17 10:14 DCW [id number]) Hip Strength Hip Manual Muscle Testing Right Flexion (L2) 5 Normal Abduction 5 Normal Adduction 5 Normal Left Flexion (L2) 5 Normal Abduction 5 Normal Adduction 5 Normal Knee Strength Knee Manual Muscle Testing Right Flexion (S2) 5 Normal Extension (L3) 5 Normal Left Flexion (S2) 5 Normal Extension (L3) 5 Normal Ankle/Foot Strength Ankle and Foot Manual Muscle Testing Right Dorsiflexion (L4) 5 Normal Plantarflexion (S1) 5 Normal Left Dorsiflexion (L4) 5 Normal Plantarflexion (S1) 4+ Good+ PT-OP-Q Treatments Start: 10/03/17 13:46 Freq: Status: Active Protocol: Document 01/18/18 09:55 DCW (Rec: 01/18/18 10:31 DCW [id number]) Gym Equipment Shuttle Recovery Unilateral Squats Resistance 100# Shuttle Recovery Platform Stable Bilateral Squats Resistance 162# Shuttle Recovery Platform Stable Shuttle Balance 2 Details Red - Wide EMILY (EO/EC) Therapeutic Exercises Other Exercises 2 Other Exercise Name Resisted Forward/Retro walking Side bilateral Resistance Green Equipment Used T-band 1 Other Exercise Name Resisted side-stepping Side bilateral Resistance Green Equipment Used T-band Neuro Re-Education Treatment Balance Activities 7 Details DL stance on BOSU 5 Details SLS 3 Details Hurdles/Foam at rail Comments Forward, Side-stepping 2 Details Fwd/Retro heel-toe ambulation in // bars PT-OP-T Assessment and Plan Start: 10/03/17 13:46 Freq: Status: Active Protocol: Document 01/18/18 09:55 DCW (Rec: 01/18/18 10:31 DCW [id number]) Physical Therapy Assessment Impairments Impairments Activity Tolerance Balance Gait Soft Tissue Mobility Strength Goals Five Impairment Gait Short Term Goal (STG) Pt to decrease left over- pronation to WNL STG Duration 01/07/18 Senior Living Goal (LTG) Pt to display no circumduction of right foot during swing phase LTG Duration 02/06/18 Four Impairment LE Strength Senior Living Goal (LTG) LE MMT to be grossly 5/5 LTG Duration Met Three Impairment Functional Gait Assessment Senior Living Goal (LTG) Pt to score 23/30 on the FGA LTG Duration 02/03/18 - Improving Two Impairment [place] Balance Short Term Goal (STG) Pt to score 50/56 on the [place] Balance Scale STG Duration 02/03/18 - Improving One Impairment Activity participation Short Term Goal (STG) Pt to report no loss of balance during ambulation over a period of two weeks STG Duration 01/07/18 Senior Living Goal (LTG) Pt to report no kicking out of his right foot while walking LTG Duration 02/06/18 Assessment Summary Assessment Pt demonstrating increased retropulsion when on Shuttle balance today, but despite shorted appointment time, was able to get through most of his exercises. Physical Therapy Plan Frequency and Duration Frequency of Treatment 2x/Week Duration of Treatment 10 weeks Plan of Care Start Date 12/07/17 Plan of Care End Date 02/15/18 Therapeutic Interventions Therapeutic Interventions Aquatic Therapy Balance Training Coordination Training Gait Training Home Exercise Program Neuromuscular Re-education Patient/Caregiver Education Soft Tissue Mobilization Therapeutic Activities Therapeutic Exercises Next Visit Focus/Plan Next Note Type Treatment Note Next Visit Plan LE strengthening, balance training, gait training.
--- NOTE | 2018-02-08 13:57 | PT.OTN ---
Current Diagnoses Parkinson's disease (02/08/18) Physical Therapy Treatment Note PT-OP-A Visit Information Start: 10/03/17 13:46 Freq: Status: Active Protocol: Document 02/08/18 13:53 AMH (Rec: 02/08/18 13:57 AMH [id number]) Out-Patient Physical Therapy Visit Information Visit Information Visit Type Treatment Note Visit Start Time 10:00 Visit Stop Time 10:45 Total Visit Minutes 45 Visit Number 13 Number of FIRE HYDRANT OPERATOR Visits 0 PT-OP-B Current Condition Start: 10/03/17 13:46 Freq: Status: Active Protocol: Document 10/03/17 12:00 DCW (Rec: 10/03/17 14:16 DCW [id number]) Current Condition History of Current Condition Onset Date Diagnosed two years ago Current Complaints Decreased balance and gait secondary to Parkinson's disease History of Current Condition Pt is an 81 year old male presenting two years s/p diagnosis of Parkinson's disease. Pt notes that overall , he is doing well, but has some difficulty with his walking and some of his balance. Pt notes that his balance seems to have worsened recently after having trouble with increase tear production in his right eye, which impact his vision and makes him feel less balanced. Pt would like to improve his walking ability as well, and complains of his right leg kicking out during his gait pattern. Future Testing and Treatments Planned Addition of LVST Big program if necessary following his current Physical Therapy program. Treatment Goals Patient/Caregiver Goals Improve gait, improve balance Prior Functional Status Baseline Function- ADL's Independent Baseline Function- Mobility Independent Baseline Function- Gait WNL Current Functional Impairments (Reported) Functional Limitations- Mobility/Gait Pt complains of difficulty walking, patricularly with circumduction of his right foot during swing phase. PT-OP-C Subjective Start: 10/03/17 13:46 Freq: Status: Active Protocol: Document 02/08/18 13:53 AMH (Rec: 02/08/18 13:57 AMH [id number]) OP-PT Subjective Patient Comments Patient Comments Brandon reports he can tell he hasn't had PT for a while. PT-OP-D Balance Start: 10/03/17 13:46 Freq: Status: Active Protocol: Document 12/07/17 09:45 DCW (Rec: 12/07/17 10:14 DCW [id number]) Balance Tests [place] Balance Test [place] Balance Test Score 49/56 [place] Impairment Rating 1 to 19% Impaired (Score 45-55 ) [place] Balance Assessment Evaluation Sitting to Standing Ability Independent w/out Hands Unsupported Stance Safely- 2 minutes Sitting Unsupported, Feet on Floor Safely- 2 minutes Standing to Sitting Ability Safely, Minimal Hand Use Transfer Ability Safely, Minimal Hand Use Unsupported Stance- Eyes Closed Safely, 10 seconds Unsupported Stance- Eyes Open Independent, 1 minute Reaching Forward Standing Safely, 5 inches Pick- Up Object From Floor Independent/Safe Look Behind Shoulder - Standing Turns Sideways Only Turning 360 Degrees Turns slowly, but safely Unsupported Stance, Alternating Feet on (I)- 8 Steps in 20 secs Stair Unsupported Tandem Stance Achieves Tandem Unilateral Leg Stance Lifts Leg/Holds > 3 secs Total Score [place] Total Score (out of 56 points) 49 [place] Impairment Rating 1 to 19% Impaired (Score 45-55 ) PT-OP-E Functional Tests Start: 10/03/17 13:46 Freq: Status: Active Protocol: Document 12/07/17 09:45 DCW (Rec: 12/07/17 10:14 DCW [id number]) Functional Tests Functional Gait Assessment Score 20/30 = 67% Functional Gait Assessment Impairment 20 to <40% Impaired (Score 19- Rating 24) Timed Up and Go (TUG) Score 3-trial average = 8.66 seconds TUG Impairment Rating 0% Impaired (Score 10) PT-OP-G Mobility & Gait Start: 10/03/17 13:46 Freq: Status: Active Protocol: Document 12/07/17 09:45 DCW (Rec: 12/07/17 10:14 DCW [id number]) OP Gait Assessment Gait Gait Assistance Required: Standby Assistance Distance (Feet) 100 Able to Maintain Weight Bearing Status Yes During Gait Assistive Devices Assistive Device Gait Belt Orthotic/Prosthetic Devices or Brace: No Gait Deviations General Gait Pattern Decreased Feet Clearance Factors Limiting Gait Function Factors Limiting Gait Function Decreased Strength Poor Balance Comments Gait Comments Right foot circumducts during swing phase to clear toes. Left foot displays increased pronation in stance phase. Stair Climbing Evaluation Evaluation Level of Assist On Stairs Independent Devices Stair Climbing Assistive Devices Left Railing Technique/Endurance Stair Climbing Direction Ascend and Descend Stair Climbing Technique Step Over Step Number of Steps Climbed 4 Stair Climbing Set # Repetitions (reps) 2 PT-OP-H Neuro Start: 10/03/17 13:46 Freq: Status: Active Protocol: Document 12/07/17 09:45 DCW (Rec: 12/07/17 10:15 DCW [id number]) Coordination Evaluation Lower Extremity Tests Right Alternate Heel to Knee; Heel to Toe Test Normal Performance Heel on Sosa Test Normal Performance Left Alternate Heel to Knee; Heel to Toe Test Normal Performance Heel on Sosa Test Normal Performance PT-OP-M Strength Start: 10/03/17 13:46 Freq: Status: Active Protocol: Document 12/07/17 09:45 DCW (Rec: 12/07/17 10:14 DCW [id number]) Hip Strength Hip Manual Muscle Testing Right Flexion (L2) 5 Normal Abduction 5 Normal Adduction 5 Normal Left Flexion (L2) 5 Normal Abduction 5 Normal Adduction 5 Normal Knee Strength Knee Manual Muscle Testing Right Flexion (S2) 5 Normal Extension (L3) 5 Normal Left Flexion (S2) 5 Normal Extension (L3) 5 Normal Ankle/Foot Strength Ankle and Foot Manual Muscle Testing Right Dorsiflexion (L4) 5 Normal Plantarflexion (S1) 5 Normal Left Dorsiflexion (L4) 5 Normal Plantarflexion (S1) 4+ Good+ PT-OP-Q Treatments Start: 10/03/17 13:46 Freq: Status: Active Protocol: Document 02/08/18 13:53 AMH (Rec: 02/08/18 13:57 AMH [id number]) Cardio Equipment Recumbent Elliptical (Biodex) Duration (Minutes) 5 Gym Equipment Shuttle Recovery Unilateral Squats Resistance 100# Shuttle Recovery Platform Stable Bilateral Squats Resistance 162# Shuttle Recovery Platform Stable Shuttle Balance 2 Details Red - Wide EMILY (EO/EC) 1 Details Yellow - Eyes open/closed, turns Sport Cord 1 Exercise Details Forward, Retro, Lateral stepping Cord/Resistance White/Green Reps/Duration x3 each direction Comments Hurdles Neuro Re-Education Treatment Balance Activities 5 Details SLS 3 Details Hurdles/Foam at rail Comments Forward, Side-stepping 2 Details Fwd/Retro heel-toe ambulation in // bars PT-OP-T Assessment and Plan Start: 10/03/17 13:46 Freq: Status: Active Protocol: Document 02/08/18 13:53 AMH (Rec: 02/08/18 13:57 AMH [id number]) Physical Therapy Assessment Assessment Summary Assessment difficulty with loss of balance in a posterior direction with eyes closed and feet together on shuttle balance, left leg circumducts with hurdles, decreased reciprical arm motion with gait Physical Therapy Plan Frequency and Duration Frequency of Treatment 2x/Week Duration of Treatment 10 weeks Plan of Care Start Date 12/07/17 Plan of Care End Date 02/15/18 Therapeutic Interventions Therapeutic Interventions Aquatic Therapy Balance Training Coordination Training Gait Training Home Exercise Program Neuromuscular Re-education Patient/Caregiver Education Soft Tissue Mobilization Therapeutic Activities Therapeutic Exercises Next Visit Focus/Plan Next Note Type Treatment Note Next Visit Plan LE strengthening, balance training, gait training.
--- NOTE | 2018-02-15 17:09 | PT.OTN ---
Current Diagnoses Parkinson's disease (02/15/18) Physical Therapy Treatment Note PT-OP-A Visit Information Start: 10/03/17 13:46 Freq: Status: Active Protocol: Document 02/15/18 09:45 DCW (Rec: 02/15/18 17:09 DCW [id number]) Out-Patient Physical Therapy Visit Information Visit Information Visit Type Progress Note Visit Start Time 09:45 Visit Stop Time 10:30 Total Visit Minutes 45 Visit Number 14 Number of SODIUM METHYLATE OPERATOR Visits 0 Evaluation Information Evaluation Date 10/03/17 PT-OP-B Current Condition Start: 10/03/17 13:46 Freq: Status: Active Protocol: Document 10/03/17 12:00 DCW (Rec: 10/03/17 14:16 DCW [id number]) Current Condition History of Current Condition Onset Date Diagnosed two years ago Current Complaints Decreased balance and gait secondary to Parkinson's disease History of Current Condition Pt is an 81 year old male presenting two years s/p diagnosis of Parkinson's disease. Pt notes that overall , he is doing well, but has some difficulty with his walking and some of his balance. Pt notes that his balance seems to have worsened recently after having trouble with increase tear production in his right eye, which impact his vision and makes him feel less balanced. Pt would like to improve his walking ability as well, and complains of his right leg kicking out during his gait pattern. Future Testing and Treatments Planned Addition of LVST Big program if necessary following his current Physical Therapy program. Treatment Goals Patient/Caregiver Goals Improve gait, improve balance Prior Functional Status Baseline Function- ADL's Independent Baseline Function- Mobility Independent Baseline Function- Gait WNL Current Functional Impairments (Reported) Functional Limitations- Mobility/Gait Pt complains of difficulty walking, patricularly with circumduction of his right foot during swing phase. PT-OP-C Subjective Start: 10/03/17 13:46 Freq: Status: Active Protocol: Document 02/15/18 09:45 DCW (Rec: 02/15/18 17:09 DCW [id number]) OP-PT Subjective Patient Comments Patient Comments Pt worried that with a reassessment today, he will not be able to get any more therapy. PT-OP-D Balance Start: 10/03/17 13:46 Freq: Status: Active Protocol: Document 02/15/18 09:45 DCW (Rec: 02/15/18 10:26 DCW [id number]) Balance Tests [place] Balance Test [place] Balance Test Score 50/56 [place] Impairment Rating 1 to 19% Impaired (Score 45-55 ) [place] Balance Assessment Evaluation Sitting to Standing Ability Independent w/out Hands Unsupported Stance Safely- 2 minutes Sitting Unsupported, Feet on Floor Safely- 2 minutes Standing to Sitting Ability Safely, Minimal Hand Use Transfer Ability Safely, Minimal Hand Use Unsupported Stance- Eyes Closed Safely, 10 seconds Unsupported Stance- Eyes Open Independent, 1 minute Reaching Forward Standing Safely, 5 inches Pick- Up Object From Floor Independent/Safe Look Behind Shoulder - Standing Shifts Weight Well Turning 360 Degrees Turns , < 4 secs Unsupported Stance, Alternating Feet on (I)- 8 Steps in 20 secs Stair Unsupported Tandem Stance Holds Tandem- 30 seconds Unilateral Leg Stance Lifts Leg/Unable to Hold Total Score [place] Total Score (out of 56 points) 50 [place] Impairment Rating 1 to 19% Impaired (Score 45-55 ) PT-OP-E Functional Tests Start: 10/03/17 13:46 Freq: Status: Active Protocol: Document 02/15/18 09:45 DCW (Rec: 02/15/18 10:26 DCW [id number]) Functional Tests Functional Gait Assessment Score 23/30 Functional Gait Assessment Impairment 20 to <40% Impaired (Score 19- Rating 24) PT-OP-G Mobility & Gait Start: 10/03/17 13:46 Freq: Status: Active Protocol: Document 02/15/18 09:45 DCW (Rec: 02/15/18 10:26 DCW [id number]) OP Gait Assessment Gait Gait Assistance Required: Independent Distance (Feet) 340 Able to Maintain Weight Bearing Status Yes During Gait Assistive Devices Assistive Device None Orthotic/Prosthetic Devices or Brace: No Gait Deviations General Gait Pattern Decreased Feet Clearance Factors Limiting Gait Function Factors Limiting Gait Function Limited Range of Motion Comments Gait Comments Pt left foot pronation has is now minimal, however pt displays continued right foot circumduction during swing phase. PT-OP-H Neuro Start: 10/03/17 13:46 Freq: Status: Active Protocol: Document 12/07/17 09:45 DCW (Rec: 12/07/17 10:15 DCW [id number]) Coordination Evaluation Lower Extremity Tests Right Alternate Heel to Knee; Heel to Toe Test Normal Performance Heel on Sosa Test Normal Performance Left Alternate Heel to Knee; Heel to Toe Test Normal Performance Heel on Sosa Test Normal Performance PT-OP-M Strength Start: 10/03/17 13:46 Freq: Status: Active Protocol: Document 02/15/18 09:45 DCW (Rec: 02/15/18 10:26 DCW [id number]) Hip Strength Hip Manual Muscle Testing Right Flexion (L2) 5 Normal Abduction 5 Normal Adduction 5 Normal Left Flexion (L2) 5 Normal Abduction 5 Normal Adduction 5 Normal Knee Strength Knee Manual Muscle Testing Right Flexion (S2) 5 Normal Extension (L3) 5 Normal Left Flexion (S2) 5 Normal Extension (L3) 5 Normal Ankle/Foot Strength Ankle and Foot Manual Muscle Testing Right Dorsiflexion (L4) 5 Normal Plantarflexion (S1) 5 Normal Left Dorsiflexion (L4) 5 Normal Plantarflexion (S1) 5 Normal PT-OP-Q Treatments Start: 10/03/17 13:46 Freq: Status: Active Protocol: Document 02/15/18 09:45 DCW (Rec: 02/15/18 17:09 DCW [id number]) Gym Equipment Shuttle Balance 2 Details Red - Wide EMILY (EO/EC) PT-OP-T Assessment and Plan Start: 10/03/17 13:46 Freq: Status: Active Protocol: Document 02/15/18 09:45 DCW (Rec: 02/15/18 17:09 DCW [id number]) Physical Therapy Assessment Impairments Impairments Activity Tolerance Balance Gait Soft Tissue Mobility Strength Goals Five Impairment Gait Short Term Goal (STG) Pt to decrease left over- pronation to WNL STG Duration MET Insurance Underwriter Goal (LTG) Pt to display no circumduction of right foot during swing phase LTG Duration 04/17/18 Four Impairment LE Strength Fci Goal (LTG) LE MMT to be grossly 5/5 LTG Duration Met Three Impairment Functional Gait Assessment Fci Goal (LTG) Pt to score 23/30 on the FGA LTG Duration Met Two Impairment [place] Balance Short Term Goal (STG) Pt to score 50/56 on the [place] Balance Scale STG Duration Met One Impairment Activity participation Short Term Goal (STG) Pt to report no loss of balance during ambulation over a period of two weeks STG Duration Met Insurance Underwriter Goal (LTG) Pt to report no kicking out of his right foot while walking LTG Duration 04/17/18 Assessment Summary Assessment Pt progressing very well, has met a large majority of original goals, however continued to circumduct right foot, resulting in an increased tripping hazard, and should probably continue skilled therapy for a short time to focus mainly on gait training. Physical Therapy Plan Frequency and Duration Frequency of Treatment 2x/Week Duration of Treatment 10 weeks Plan of Care Start Date 02/15/18 Plan of Care End Date 04/26/18 Therapeutic Interventions Therapeutic Interventions Aquatic Therapy Balance Training Coordination Training Gait Training Home Exercise Program Neuromuscular Re-education Patient/Caregiver Education Soft Tissue Mobilization Therapeutic Activities Therapeutic Exercises Next Visit Focus/Plan Next Note Type Treatment Note Next Visit Plan Gait training, LE strengthening, balance training.
--- NOTE | 2018-02-15 17:10 | PT.OPPOC ---
Current Diagnoses Parkinson's disease (02/15/18) Provider Visit Care Team Role Provider Type Manoj Sanchez MD Primary Care Provider Physician Specialty: Family Practice Address: [address] [place], [address] Email: [email or web address] Aba Hightower MD Attending Provider Non-Staff Family Provider Specialty: Neurology Address: [address] [place], [address] Email: Plan Of Care PT-OP-T Assessment and Plan Start: 10/03/17 13:46 Freq: Status: Active Protocol: Document 02/15/18 09:45 DCW (Rec: 02/15/18 17:09 DCW [id number]) Physical Therapy Assessment Impairments Impairments Activity Tolerance Balance Gait Soft Tissue Mobility Strength Goals Five Impairment Gait Short Term Goal (STG) Pt to decrease left over- pronation to WNL STG Duration MET Insolvency Consultant Goal (LTG) Pt to display no circumduction of right foot during swing phase LTG Duration 04/17/18 Four Impairment LE Strength Mcfp Goal (LTG) LE MMT to be grossly 5/5 LTG Duration Met Three Impairment Functional Gait Assessment Mcfp Goal (LTG) Pt to score 23/30 on the FGA LTG Duration Met Two Impairment [place] Balance Short Term Goal (STG) Pt to score 50/56 on the [place] Balance Scale STG Duration Met One Impairment Activity participation Short Term Goal (STG) Pt to report no loss of balance during ambulation over a period of two weeks STG Duration Met Insolvency Consultant Goal (LTG) Pt to report no kicking out of his right foot while walking LTG Duration 04/17/18 Assessment Summary Assessment Pt progressing very well, has met a large majority of original goals, however continued to circumduct right foot, resulting in an increased tripping hazard, and should probably continue skilled therapy for a short time to focus mainly on gait training. Physical Therapy Plan Frequency and Duration Frequency of Treatment 2x/Week Duration of Treatment 10 weeks Plan of Care Start Date 02/15/18 Plan of Care End Date 04/26/18 Therapeutic Interventions Therapeutic Interventions Aquatic Therapy Balance Training Coordination Training Gait Training Home Exercise Program Neuromuscular Re-education Patient/Caregiver Education Soft Tissue Mobilization Therapeutic Activities Therapeutic Exercises Next Visit Focus/Plan Next Note Type Treatment Note Next Visit Plan Gait training, LE strengthening, balance training. Plan of Care Dates Plan of Care Start Date 02/15/18 Plan of Care End Date 04/26/18 Please Sign and Return: I have reviewed this Plan of Care and certify that the skilled therapy services above are required to meet the patient?s needs. Physician Signature Date Printed Name and Credentials Clinical Instructor Signature Printed Name and Credentials
--- NOTE | 2018-02-22 12:46 | PT.OTN ---
Current Diagnoses Parkinson's disease (02/22/18) Physical Therapy Treatment Note PT-OP-A Visit Information Start: 10/03/17 13:46 Freq: Status: Active Protocol: Document 02/22/18 12:00 DCW (Rec: 02/22/18 12:46 DCW [id number]) Out-Patient Physical Therapy Visit Information Visit Information Visit Type Treatment Note Visit Start Time 12:00 Visit Stop Time 12:45 Total Visit Minutes 45 Visit Number 15 Number of CARE COORDINATION MANAGER Visits 0 Evaluation Information Evaluation Date 10/03/17 PT-OP-B Current Condition Start: 10/03/17 13:46 Freq: Status: Active Protocol: Document 10/03/17 12:00 DCW (Rec: 10/03/17 14:16 DCW [id number]) Current Condition History of Current Condition Onset Date Diagnosed two years ago Current Complaints Decreased balance and gait secondary to Parkinson's disease History of Current Condition Pt is an 81 year old male presenting two years s/p diagnosis of Parkinson's disease. Pt notes that overall , he is doing well, but has some difficulty with his walking and some of his balance. Pt notes that his balance seems to have worsened recently after having trouble with increase tear production in his right eye, which impact his vision and makes him feel less balanced. Pt would like to improve his walking ability as well, and complains of his right leg kicking out during his gait pattern. Future Testing and Treatments Planned Addition of LVST Big program if necessary following his current Physical Therapy program. Treatment Goals Patient/Caregiver Goals Improve gait, improve balance Prior Functional Status Baseline Function- ADL's Independent Baseline Function- Mobility Independent Baseline Function- Gait WNL Current Functional Impairments (Reported) Functional Limitations- Mobility/Gait Pt complains of difficulty walking, patricularly with circumduction of his right foot during swing phase. PT-OP-C Subjective Start: 10/03/17 13:46 Freq: Status: Active Protocol: Document 02/22/18 12:00 DCW (Rec: 02/22/18 12:46 DCW [id number]) OP-PT Subjective Patient Comments Patient Comments Pt reports he is doing pretty good today, but feels a little less stable than normal. PT-OP-D Balance Start: 10/03/17 13:46 Freq: Status: Active Protocol: Document 02/15/18 09:45 DCW (Rec: 02/15/18 10:26 DCW [id number]) Balance Tests [place] Balance Test [place] Balance Test Score 50/56 [place] Impairment Rating 1 to 19% Impaired (Score 45-55 ) [place] Balance Assessment Evaluation Sitting to Standing Ability Independent w/out Hands Unsupported Stance Safely- 2 minutes Sitting Unsupported, Feet on Floor Safely- 2 minutes Standing to Sitting Ability Safely, Minimal Hand Use Transfer Ability Safely, Minimal Hand Use Unsupported Stance- Eyes Closed Safely, 10 seconds Unsupported Stance- Eyes Open Independent, 1 minute Reaching Forward Standing Safely, 5 inches Pick- Up Object From Floor Independent/Safe Look Behind Shoulder - Standing Shifts Weight Well Turning 360 Degrees Turns , < 4 secs Unsupported Stance, Alternating Feet on (I)- 8 Steps in 20 secs Stair Unsupported Tandem Stance Holds Tandem- 30 seconds Unilateral Leg Stance Lifts Leg/Unable to Hold Total Score [place] Total Score (out of 56 points) 50 [place] Impairment Rating 1 to 19% Impaired (Score 45-55 ) PT-OP-E Functional Tests Start: 10/03/17 13:46 Freq: Status: Active Protocol: Document 02/15/18 09:45 DCW (Rec: 02/15/18 10:26 DCW [id number]) Functional Tests Functional Gait Assessment Score 23/30 Functional Gait Assessment Impairment 20 to <40% Impaired (Score 19- Rating 24) PT-OP-G Mobility & Gait Start: 10/03/17 13:46 Freq: Status: Active Protocol: Document 02/15/18 09:45 DCW (Rec: 02/15/18 10:26 DCW [id number]) OP Gait Assessment Gait Gait Assistance Required: Independent Distance (Feet) 340 Able to Maintain Weight Bearing Status Yes During Gait Assistive Devices Assistive Device None Orthotic/Prosthetic Devices or Brace: No Gait Deviations General Gait Pattern Decreased Feet Clearance Factors Limiting Gait Function Factors Limiting Gait Function Limited Range of Motion Comments Gait Comments Pt left foot pronation has is now minimal, however pt displays continued right foot circumduction during swing phase. PT-OP-H Neuro Start: 10/03/17 13:46 Freq: Status: Active Protocol: Document 12/07/17 09:45 DCW (Rec: 12/07/17 10:15 DCW [id number]) Coordination Evaluation Lower Extremity Tests Right Alternate Heel to Knee; Heel to Toe Test Normal Performance Heel on Sosa Test Normal Performance Left Alternate Heel to Knee; Heel to Toe Test Normal Performance Heel on Sosa Test Normal Performance PT-OP-M Strength Start: 10/03/17 13:46 Freq: Status: Active Protocol: Document 02/15/18 09:45 DCW (Rec: 02/15/18 10:26 DCW [id number]) Hip Strength Hip Manual Muscle Testing Right Flexion (L2) 5 Normal Abduction 5 Normal Adduction 5 Normal Left Flexion (L2) 5 Normal Abduction 5 Normal Adduction 5 Normal Knee Strength Knee Manual Muscle Testing Right Flexion (S2) 5 Normal Extension (L3) 5 Normal Left Flexion (S2) 5 Normal Extension (L3) 5 Normal Ankle/Foot Strength Ankle and Foot Manual Muscle Testing Right Dorsiflexion (L4) 5 Normal Plantarflexion (S1) 5 Normal Left Dorsiflexion (L4) 5 Normal Plantarflexion (S1) 5 Normal PT-OP-Q Treatments Start: 10/03/17 13:46 Freq: Status: Active Protocol: Document 02/22/18 12:00 DCW (Rec: 02/22/18 12:46 DCW [id number]) Gym Equipment Shuttle Recovery Unilateral Squats Resistance 100# Shuttle Recovery Platform Stable Bilateral Squats Resistance 162# Shuttle Recovery Platform Stable Shuttle Balance 2 Details Red - Wide EMILY (EO/EC), Staggered Stance Therapeutic Exercises Other Exercises 2 Other Exercise Name Resisted Forward/Retro walking Side bilateral Resistance Green Equipment Used T-band 1 Other Exercise Name Resisted side-stepping Side bilateral Resistance Green Equipment Used T-band Neuro Re-Education Treatment Balance Activities 7 Details DL stance on BOSU 6 Details [place] 2 Details Fwd/Retro heel-toe ambulation in // bars PT-OP-T Assessment and Plan Start: 10/03/17 13:46 Freq: Status: Active Protocol: Document 02/22/18 12:00 DCW (Rec: 02/22/18 12:46 DCW [id number]) Physical Therapy Assessment Impairments Impairments Activity Tolerance Balance Gait Soft Tissue Mobility Strength Goals Five Impairment Gait Short Term Goal (STG) Pt to decrease left over- pronation to WNL STG Duration MET Sales Agent Fire Insurance Goal (LTG) Pt to display no circumduction of right foot during swing phase LTG Duration 04/17/18 Four Impairment LE Strength Sales Agent Fire Insurance Goal (LTG) LE MMT to be grossly 5/5 LTG Duration Met Three Impairment Functional Gait Assessment Sales Agent Fire Insurance Goal (LTG) Pt to score 23/30 on the FGA LTG Duration Met Two Impairment [place] Balance Short Term Goal (STG) Pt to score 50/56 on the [place] Balance Scale STG Duration Met One Impairment Activity participation Short Term Goal (STG) Pt to report no loss of balance during ambulation over a period of two weeks STG Duration Met Sales Agent Fire Insurance Goal (LTG) Pt to report no kicking out of his right foot while walking LTG Duration 04/17/18 Assessment Summary Assessment Pt did have some increased difficulty with his balance today, especially on the shuttle balance, and demonstrated increased confusion during the [place] . Physical Therapy Plan Frequency and Duration Frequency of Treatment 2x/Week Duration of Treatment 10 weeks Plan of Care Start Date 02/15/18 Plan of Care End Date 04/26/18 Therapeutic Interventions Therapeutic Interventions Aquatic Therapy Balance Training Coordination Training Gait Training Home Exercise Program Neuromuscular Re-education Patient/Caregiver Education Soft Tissue Mobilization Therapeutic Activities Therapeutic Exercises Next Visit Focus/Plan Next Note Type Treatment Note Next Visit Plan Gait training, LE strengthening, balance training.
--- NOTE | 2018-03-08 11:14 | PT.OTN ---
Current Diagnoses Parkinson's disease (03/08/18) Physical Therapy Treatment Note PT-OP-A Visit Information Start: 10/03/17 13:46 Freq: Status: Active Protocol: Document 03/08/18 10:30 DCW (Rec: 03/08/18 11:14 DCW [id number]) Out-Patient Physical Therapy Visit Information Visit Information Visit Type Treatment Note Visit Start Time 10:30 Visit Stop Time 11:15 Total Visit Minutes 45 Visit Number 16 Number of TOP CLOSER Visits 0 Evaluation Information Evaluation Date 10/03/17 PT-OP-B Current Condition Start: 10/03/17 13:46 Freq: Status: Active Protocol: Document 10/03/17 12:00 DCW (Rec: 10/03/17 14:16 DCW [id number]) Current Condition History of Current Condition Onset Date Diagnosed two years ago Current Complaints Decreased balance and gait secondary to Parkinson's disease History of Current Condition Pt is an 81 year old male presenting two years s/p diagnosis of Parkinson's disease. Pt notes that overall , he is doing well, but has some difficulty with his walking and some of his balance. Pt notes that his balance seems to have worsened recently after having trouble with increase tear production in his right eye, which impact his vision and makes him feel less balanced. Pt would like to improve his walking ability as well, and complains of his right leg kicking out during his gait pattern. Future Testing and Treatments Planned Addition of LVST Big program if necessary following his current Physical Therapy program. Treatment Goals Patient/Caregiver Goals Improve gait, improve balance Prior Functional Status Baseline Function- ADL's Independent Baseline Function- Mobility Independent Baseline Function- Gait WNL Current Functional Impairments (Reported) Functional Limitations- Mobility/Gait Pt complains of difficulty walking, patricularly with circumduction of his right foot during swing phase. PT-OP-C Subjective Start: 10/03/17 13:46 Freq: Status: Active Protocol: Document 03/08/18 10:30 DCW (Rec: 03/08/18 11:14 DCW [id number]) OP-PT Subjective Patient Comments Patient Comments Pt reports he is feeling a lot better today than I have been. PT-OP-D Balance Start: 10/03/17 13:46 Freq: Status: Active Protocol: Document 02/15/18 09:45 DCW (Rec: 02/15/18 10:26 DCW [id number]) Balance Tests [place] Balance Test [place] Balance Test Score 50/56 [place] Impairment Rating 1 to 19% Impaired (Score 45-55 ) [place] Balance Assessment Evaluation Sitting to Standing Ability Independent w/out Hands Unsupported Stance Safely- 2 minutes Sitting Unsupported, Feet on Floor Safely- 2 minutes Standing to Sitting Ability Safely, Minimal Hand Use Transfer Ability Safely, Minimal Hand Use Unsupported Stance- Eyes Closed Safely, 10 seconds Unsupported Stance- Eyes Open Independent, 1 minute Reaching Forward Standing Safely, 5 inches Pick- Up Object From Floor Independent/Safe Look Behind Shoulder - Standing Shifts Weight Well Turning 360 Degrees Turns , < 4 secs Unsupported Stance, Alternating Feet on (I)- 8 Steps in 20 secs Stair Unsupported Tandem Stance Holds Tandem- 30 seconds Unilateral Leg Stance Lifts Leg/Unable to Hold Total Score [place] Total Score (out of 56 points) 50 [place] Impairment Rating 1 to 19% Impaired (Score 45-55 ) PT-OP-E Functional Tests Start: 10/03/17 13:46 Freq: Status: Active Protocol: Document 02/15/18 09:45 DCW (Rec: 02/15/18 10:26 DCW [id number]) Functional Tests Functional Gait Assessment Score 23/30 Functional Gait Assessment Impairment 20 to <40% Impaired (Score 19- Rating 24) PT-OP-G Mobility & Gait Start: 10/03/17 13:46 Freq: Status: Active Protocol: Document 02/15/18 09:45 DCW (Rec: 02/15/18 10:26 DCW [id number]) OP Gait Assessment Gait Gait Assistance Required: Independent Distance (Feet) 340 Able to Maintain Weight Bearing Status Yes During Gait Assistive Devices Assistive Device None Orthotic/Prosthetic Devices or Brace: No Gait Deviations General Gait Pattern Decreased Feet Clearance Factors Limiting Gait Function Factors Limiting Gait Function Limited Range of Motion Comments Gait Comments Pt left foot pronation has is now minimal, however pt displays continued right foot circumduction during swing phase. PT-OP-H Neuro Start: 10/03/17 13:46 Freq: Status: Active Protocol: Document 12/07/17 09:45 DCW (Rec: 12/07/17 10:15 DCW [id number]) Coordination Evaluation Lower Extremity Tests Right Alternate Heel to Knee; Heel to Toe Test Normal Performance Heel on Sosa Test Normal Performance Left Alternate Heel to Knee; Heel to Toe Test Normal Performance Heel on Sosa Test Normal Performance PT-OP-M Strength Start: 10/03/17 13:46 Freq: Status: Active Protocol: Document 02/15/18 09:45 DCW (Rec: 02/15/18 10:26 DCW [id number]) Hip Strength Hip Manual Muscle Testing Right Flexion (L2) 5 Normal Abduction 5 Normal Adduction 5 Normal Left Flexion (L2) 5 Normal Abduction 5 Normal Adduction 5 Normal Knee Strength Knee Manual Muscle Testing Right Flexion (S2) 5 Normal Extension (L3) 5 Normal Left Flexion (S2) 5 Normal Extension (L3) 5 Normal Ankle/Foot Strength Ankle and Foot Manual Muscle Testing Right Dorsiflexion (L4) 5 Normal Plantarflexion (S1) 5 Normal Left Dorsiflexion (L4) 5 Normal Plantarflexion (S1) 5 Normal PT-OP-Q Treatments Start: 10/03/17 13:46 Freq: Status: Active Protocol: Document 03/08/18 10:30 DCW (Rec: 03/08/18 11:14 DCW [id number]) Cardio Equipment Recumbent Elliptical (BiodStraker Translations) Duration (Minutes) 5 Resistance 8 Seat Position 11 Gym Equipment Shuttle Recovery Unilateral Squats Resistance 100# Shuttle Recovery Platform Stable Bilateral Squats Resistance 162# Shuttle Recovery Platform Stable Shuttle Balance 2 Details Red - Wide EMILY (EO/EC), Staggered Stance Therapeutic Exercises Other Exercises 2 Other Exercise Name Resisted Forward/Retro walking Side bilateral Resistance Green Equipment Used T-band 1 Other Exercise Name Resisted side-stepping Side bilateral Resistance Green Equipment Used T-band Neuro Re-Education Treatment Balance Activities 7 Details DL stance on BOSU 5 Details SLS 2 Details Fwd/Retro heel-toe ambulation in // bars PT-OP-T Assessment and Plan Start: 10/03/17 13:46 Freq: Status: Active Protocol: Document 03/08/18 10:30 DCW (Rec: 03/08/18 11:14 DCW [id number]) Physical Therapy Assessment Impairments Impairments Activity Tolerance Balance Gait Soft Tissue Mobility Strength Goals Five Impairment Gait Short Term Goal (STG) Pt to decrease left over- pronation to WNL STG Duration MET Chcf Goal (LTG) Pt to display no circumduction of right foot during swing phase LTG Duration 04/17/18 Four Impairment LE Strength Micro Computer Data Processor Goal (LTG) LE MMT to be grossly 5/5 LTG Duration Met Three Impairment Functional Gait Assessment Micro Computer Data Processor Goal (LTG) Pt to score 23/30 on the FGA LTG Duration Met Two Impairment [place] Balance Short Term Goal (STG) Pt to score 50/56 on the [place] Balance Scale STG Duration Met One Impairment Activity participation Short Term Goal (STG) Pt to report no loss of balance during ambulation over a period of two weeks STG Duration Met Micro Computer Data Processor Goal (LTG) Pt to report no kicking out of his right foot while walking LTG Duration 04/17/18 Assessment Summary Assessment Pt doing better today, showing improvement in most areas, however continues to have difficulty with heel-toe ambulation Physical Therapy Plan Frequency and Duration Frequency of Treatment 2x/Week Duration of Treatment 10 weeks Plan of Care Start Date 02/15/18 Plan of Care End Date 04/26/18 Therapeutic Interventions Therapeutic Interventions Aquatic Therapy Balance Training Coordination Training Gait Training Home Exercise Program Neuromuscular Re-education Patient/Caregiver Education Soft Tissue Mobilization Therapeutic Activities Therapeutic Exercises Next Visit Focus/Plan Next Note Type Treatment Note Next Visit Plan Gait training, LE strengthening, balance training.
--- NOTE | 2018-03-15 11:12 | PT.OTN ---
Current Diagnoses Parkinson's disease (03/15/18) Physical Therapy Treatment Note PT-OP-A Visit Information Start: 10/03/17 13:46 Freq: Status: Active Protocol: Document 03/15/18 09:55 DCW (Rec: 03/15/18 11:12 DCW [id number]) Out-Patient Physical Therapy Visit Information Visit Information Visit Type Treatment Note Visit Note Pt arrived 10 minutes late Visit Start Time 09:55 Visit Stop Time 10:30 Total Visit Minutes 35 Visit Number 17 Number of GIFT SHOP MANAGER Visits 0 Evaluation Information Evaluation Date 10/03/17 PT-OP-B Current Condition Start: 10/03/17 13:46 Freq: Status: Active Protocol: Document 10/03/17 12:00 DCW (Rec: 10/03/17 14:16 DCW [id number]) Current Condition History of Current Condition Onset Date Diagnosed two years ago Current Complaints Decreased balance and gait secondary to Parkinson's disease History of Current Condition Pt is an 81 year old male presenting two years s/p diagnosis of Parkinson's disease. Pt notes that overall , he is doing well, but has some difficulty with his walking and some of his balance. Pt notes that his balance seems to have worsened recently after having trouble with increase tear production in his right eye, which impact his vision and makes him feel less balanced. Pt would like to improve his walking ability as well, and complains of his right leg kicking out during his gait pattern. Future Testing and Treatments Planned Addition of LVST Big program if necessary following his current Physical Therapy program. Treatment Goals Patient/Caregiver Goals Improve gait, improve balance Prior Functional Status Baseline Function- ADL's Independent Baseline Function- Mobility Independent Baseline Function- Gait WNL Current Functional Impairments (Reported) Functional Limitations- Mobility/Gait Pt complains of difficulty walking, patricularly with circumduction of his right foot during swing phase. PT-OP-C Subjective Start: 10/03/17 13:46 Freq: Status: Active Protocol: Document 03/15/18 09:55 DCW (Rec: 03/15/18 11:12 DCW [id number]) OP-PT Subjective Patient Comments Patient Comments Pt notes he is very cold today . PT-OP-D Balance Start: 10/03/17 13:46 Freq: Status: Active Protocol: Document 02/15/18 09:45 DCW (Rec: 02/15/18 10:26 DCW [id number]) Balance Tests [place] Balance Test [place] Balance Test Score 50/56 [place] Impairment Rating 1 to 19% Impaired (Score 45-55 ) [place] Balance Assessment Evaluation Sitting to Standing Ability Independent w/out Hands Unsupported Stance Safely- 2 minutes Sitting Unsupported, Feet on Floor Safely- 2 minutes Standing to Sitting Ability Safely, Minimal Hand Use Transfer Ability Safely, Minimal Hand Use Unsupported Stance- Eyes Closed Safely, 10 seconds Unsupported Stance- Eyes Open Independent, 1 minute Reaching Forward Standing Safely, 5 inches Pick- Up Object From Floor Independent/Safe Look Behind Shoulder - Standing Shifts Weight Well Turning 360 Degrees Turns , < 4 secs Unsupported Stance, Alternating Feet on (I)- 8 Steps in 20 secs Stair Unsupported Tandem Stance Holds Tandem- 30 seconds Unilateral Leg Stance Lifts Leg/Unable to Hold Total Score [place] Total Score (out of 56 points) 50 [place] Impairment Rating 1 to 19% Impaired (Score 45-55 ) PT-OP-E Functional Tests Start: 10/03/17 13:46 Freq: Status: Active Protocol: Document 02/15/18 09:45 DCW (Rec: 02/15/18 10:26 DCW [id number]) Functional Tests Functional Gait Assessment Score 23/30 Functional Gait Assessment Impairment 20 to <40% Impaired (Score 19- Rating 24) PT-OP-G Mobility & Gait Start: 10/03/17 13:46 Freq: Status: Active Protocol: Document 02/15/18 09:45 DCW (Rec: 02/15/18 10:26 DCW [id number]) OP Gait Assessment Gait Gait Assistance Required: Independent Distance (Feet) 340 Able to Maintain Weight Bearing Status Yes During Gait Assistive Devices Assistive Device None Orthotic/Prosthetic Devices or Brace: No Gait Deviations General Gait Pattern Decreased Feet Clearance Factors Limiting Gait Function Factors Limiting Gait Function Limited Range of Motion Comments Gait Comments Pt left foot pronation has is now minimal, however pt displays continued right foot circumduction during swing phase. PT-OP-H Neuro Start: 10/03/17 13:46 Freq: Status: Active Protocol: Document 12/07/17 09:45 DCW (Rec: 12/07/17 10:15 DCW [id number]) Coordination Evaluation Lower Extremity Tests Right Alternate Heel to Knee; Heel to Toe Test Normal Performance Heel on Sosa Test Normal Performance Left Alternate Heel to Knee; Heel to Toe Test Normal Performance Heel on Sosa Test Normal Performance PT-OP-M Strength Start: 10/03/17 13:46 Freq: Status: Active Protocol: Document 02/15/18 09:45 DCW (Rec: 02/15/18 10:26 DCW [id number]) Hip Strength Hip Manual Muscle Testing Right Flexion (L2) 5 Normal Abduction 5 Normal Adduction 5 Normal Left Flexion (L2) 5 Normal Abduction 5 Normal Adduction 5 Normal Knee Strength Knee Manual Muscle Testing Right Flexion (S2) 5 Normal Extension (L3) 5 Normal Left Flexion (S2) 5 Normal Extension (L3) 5 Normal Ankle/Foot Strength Ankle and Foot Manual Muscle Testing Right Dorsiflexion (L4) 5 Normal Plantarflexion (S1) 5 Normal Left Dorsiflexion (L4) 5 Normal Plantarflexion (S1) 5 Normal PT-OP-Q Treatments Start: 10/03/17 13:46 Freq: Status: Active Protocol: Document 03/15/18 09:55 DCW (Rec: 03/15/18 11:12 DCW [id number]) Gym Equipment Shuttle Recovery Unilateral Squats Resistance 100# Shuttle Recovery Platform Stable Bilateral Squats Resistance 162# Shuttle Recovery Platform Stable Shuttle Balance 2 Details Red - Wide EMILY (EO/EC), Staggered Stance Therapeutic Exercises Other Exercises 2 Other Exercise Name Resisted Forward/Retro walking Side bilateral Resistance Green Equipment Used T-band 1 Other Exercise Name Resisted side-stepping Side bilateral Resistance Green Equipment Used T-band Neuro Re-Education Treatment Balance Activities 7 Details DL stance on BOSU 2 Details Fwd/Retro heel-toe ambulation in // bars PT-OP-T Assessment and Plan Start: 10/03/17 13:46 Freq: Status: Active Protocol: Document 03/15/18 09:55 DCW (Rec: 03/15/18 11:12 DCW [id number]) Physical Therapy Assessment Impairments Impairments Activity Tolerance Balance Gait Soft Tissue Mobility Strength Goals Five Impairment Gait Short Term Goal (STG) Pt to decrease left over- pronation to WNL STG Duration MET Metal Baler Goal (LTG) Pt to display no circumduction of right foot during swing phase LTG Duration 04/17/18 Four Impairment LE Strength Metal Baler Goal (LTG) LE MMT to be grossly 5/5 LTG Duration Met Three Impairment Functional Gait Assessment Nursing Home Goal (LTG) Pt to score 23/30 on the FGA LTG Duration Met Two Impairment [place] Balance Short Term Goal (STG) Pt to score 50/56 on the [place] Balance Scale STG Duration Met One Impairment Activity participation Short Term Goal (STG) Pt to report no loss of balance during ambulation over a period of two weeks STG Duration Met Metal Baler Goal (LTG) Pt to report no kicking out of his right foot while walking LTG Duration 04/17/18 Assessment Summary Assessment Pt overall dynamic balance much improved, no noticeable LOB when ambulating normally, continues to have difficulty with heel-toe. Physical Therapy Plan Frequency and Duration Frequency of Treatment 2x/Week Duration of Treatment 10 weeks Plan of Care Start Date 02/15/18 Plan of Care End Date 04/26/18 Therapeutic Interventions Therapeutic Interventions Aquatic Therapy Balance Training Coordination Training Gait Training Home Exercise Program Neuromuscular Re-education Patient/Caregiver Education Soft Tissue Mobilization Therapeutic Activities Therapeutic Exercises Next Visit Focus/Plan Next Note Type Treatment Note Next Visit Plan Gait training, LE strengthening, balance training.
--- NOTE | 2018-03-29 10:29 | PT.OTN ---
Current Diagnoses Parkinson's disease (03/29/18) Physical Therapy Treatment Note PT-OP-A Visit Information Start: 10/03/17 13:46 Freq: Status: Active Protocol: Document 03/29/18 09:45 DCW (Rec: 03/29/18 10:28 DCW [id number]) Out-Patient Physical Therapy Visit Information Visit Information Visit Type Treatment Note Visit Start Time 09:45 Visit Stop Time 10:30 Total Visit Minutes 45 Visit Number 18 Number of SUPERVISING EDITOR NEWS REEL Visits 0 Evaluation Information Evaluation Date 10/03/17 PT-OP-B Current Condition Start: 10/03/17 13:46 Freq: Status: Active Protocol: Document 10/03/17 12:00 DCW (Rec: 10/03/17 14:16 DCW [id number]) Current Condition History of Current Condition Onset Date Diagnosed two years ago Current Complaints Decreased balance and gait secondary to Parkinson's disease History of Current Condition Pt is an 81 year old male presenting two years s/p diagnosis of Parkinson's disease. Pt notes that overall , he is doing well, but has some difficulty with his walking and some of his balance. Pt notes that his balance seems to have worsened recently after having trouble with increase tear production in his right eye, which impact his vision and makes him feel less balanced. Pt would like to improve his walking ability as well, and complains of his right leg kicking out during his gait pattern. Future Testing and Treatments Planned Addition of LVST Big program if necessary following his current Physical Therapy program. Treatment Goals Patient/Caregiver Goals Improve gait, improve balance Prior Functional Status Baseline Function- ADL's Independent Baseline Function- Mobility Independent Baseline Function- Gait WNL Current Functional Impairments (Reported) Functional Limitations- Mobility/Gait Pt complains of difficulty walking, patricularly with circumduction of his right foot during swing phase. PT-OP-C Subjective Start: 10/03/17 13:46 Freq: Status: Active Protocol: Document 03/29/18 09:45 DCW (Rec: 03/29/18 10:28 DCW [id number]) OP-PT Subjective Patient Comments Patient Comments Pt reports that he is better than last week. PT-OP-D Balance Start: 10/03/17 13:46 Freq: Status: Active Protocol: Document 02/15/18 09:45 DCW (Rec: 02/15/18 10:26 DCW [id number]) Balance Tests [place] Balance Test [place] Balance Test Score 50/56 [place] Impairment Rating 1 to 19% Impaired (Score 45-55 ) [place] Balance Assessment Evaluation Sitting to Standing Ability Independent w/out Hands Unsupported Stance Safely- 2 minutes Sitting Unsupported, Feet on Floor Safely- 2 minutes Standing to Sitting Ability Safely, Minimal Hand Use Transfer Ability Safely, Minimal Hand Use Unsupported Stance- Eyes Closed Safely, 10 seconds Unsupported Stance- Eyes Open Independent, 1 minute Reaching Forward Standing Safely, 5 inches Pick- Up Object From Floor Independent/Safe Look Behind Shoulder - Standing Shifts Weight Well Turning 360 Degrees Turns , < 4 secs Unsupported Stance, Alternating Feet on (I)- 8 Steps in 20 secs Stair Unsupported Tandem Stance Holds Tandem- 30 seconds Unilateral Leg Stance Lifts Leg/Unable to Hold Total Score [place] Total Score (out of 56 points) 50 [place] Impairment Rating 1 to 19% Impaired (Score 45-55 ) PT-OP-E Functional Tests Start: 10/03/17 13:46 Freq: Status: Active Protocol: Document 02/15/18 09:45 DCW (Rec: 02/15/18 10:26 DCW [id number]) Functional Tests Functional Gait Assessment Score 23/30 Functional Gait Assessment Impairment 20 to <40% Impaired (Score 19- Rating 24) PT-OP-G Mobility & Gait Start: 10/03/17 13:46 Freq: Status: Active Protocol: Document 02/15/18 09:45 DCW (Rec: 02/15/18 10:26 DCW [id number]) OP Gait Assessment Gait Gait Assistance Required: Independent Distance (Feet) 340 Able to Maintain Weight Bearing Status Yes During Gait Assistive Devices Assistive Device None Orthotic/Prosthetic Devices or Brace: No Gait Deviations General Gait Pattern Decreased Feet Clearance Factors Limiting Gait Function Factors Limiting Gait Function Limited Range of Motion Comments Gait Comments Pt left foot pronation has is now minimal, however pt displays continued right foot circumduction during swing phase. PT-OP-H Neuro Start: 10/03/17 13:46 Freq: Status: Active Protocol: Document 12/07/17 09:45 DCW (Rec: 12/07/17 10:15 DCW [id number]) Coordination Evaluation Lower Extremity Tests Right Alternate Heel to Knee; Heel to Toe Test Normal Performance Heel on Sosa Test Normal Performance Left Alternate Heel to Knee; Heel to Toe Test Normal Performance Heel on Sosa Test Normal Performance PT-OP-M Strength Start: 10/03/17 13:46 Freq: Status: Active Protocol: Document 02/15/18 09:45 DCW (Rec: 02/15/18 10:26 DCW [id number]) Hip Strength Hip Manual Muscle Testing Right Flexion (L2) 5 Normal Abduction 5 Normal Adduction 5 Normal Left Flexion (L2) 5 Normal Abduction 5 Normal Adduction 5 Normal Knee Strength Knee Manual Muscle Testing Right Flexion (S2) 5 Normal Extension (L3) 5 Normal Left Flexion (S2) 5 Normal Extension (L3) 5 Normal Ankle/Foot Strength Ankle and Foot Manual Muscle Testing Right Dorsiflexion (L4) 5 Normal Plantarflexion (S1) 5 Normal Left Dorsiflexion (L4) 5 Normal Plantarflexion (S1) 5 Normal PT-OP-Q Treatments Start: 10/03/17 13:46 Freq: Status: Active Protocol: Document 03/29/18 09:45 DCW (Rec: 03/29/18 10:28 DCW [id number]) Gym Equipment Shuttle Recovery Unilateral Squats Resistance 100# Shuttle Recovery Platform Stable Bilateral Squats Resistance 162# Shuttle Recovery Platform Stable Shuttle Balance 2 Details Red - Wide EMILY (EO/EC), Staggered Stance Therapeutic Exercises Other Exercises 2 Other Exercise Name Resisted Forward/Retro walking Side bilateral Resistance Green Equipment Used T-band 1 Other Exercise Name Resisted side-stepping Side bilateral Resistance Green Equipment Used T-band Neuro Re-Education Treatment Balance Activities 7 Details DL stance on BOSU 5 Details SLS 2 Details Fwd/Retro heel-toe ambulation in // bars PT-OP-T Assessment and Plan Start: 10/03/17 13:46 Freq: Status: Active Protocol: Document 03/29/18 09:45 DCW (Rec: 03/29/18 10:28 DCW [id number]) Physical Therapy Assessment Impairments Impairments Activity Tolerance Balance Gait Soft Tissue Mobility Strength Goals Five Impairment Gait Short Term Goal (STG) Pt to decrease left over- pronation to WNL STG Duration MET Usp Goal (LTG) Pt to display no circumduction of right foot during swing phase LTG Duration 04/17/18 Four Impairment LE Strength Usp Goal (LTG) LE MMT to be grossly 5/5 LTG Duration Met Three Impairment Functional Gait Assessment Usp Goal (LTG) Pt to score 23/30 on the FGA LTG Duration Met Two Impairment [place] Balance Short Term Goal (STG) Pt to score 50/56 on the [place] Balance Scale STG Duration Met One Impairment Activity participation Short Term Goal (STG) Pt to report no loss of balance during ambulation over a period of two weeks STG Duration Met Tape Fastener Machine Operator Goal (LTG) Pt to report no kicking out of his right foot while walking LTG Duration 04/17/18 Assessment Summary Assessment Pt doing well today, however will occasionally struggle remembering that an activity has been performed previously, and will need repeated instruction. Physical Therapy Plan Frequency and Duration Frequency of Treatment 2x/Week Duration of Treatment 10 weeks Plan of Care Start Date 02/15/18 Plan of Care End Date 04/26/18 Therapeutic Interventions Therapeutic Interventions Aquatic Therapy Balance Training Coordination Training Gait Training Home Exercise Program Neuromuscular Re-education Patient/Caregiver Education Soft Tissue Mobilization Therapeutic Activities Therapeutic Exercises Next Visit Focus/Plan Next Note Type Treatment Note Next Visit Plan Gait training, LE strengthening, balance training.
--- NOTE | 2018-05-30 11:12 | PT.OPDS ---
Current Diagnoses Parkinson's disease (03/29/18) Provider Visit Care Team Role Provider Type Manoj Sanchez MD Primary Care Provider Non-Staff Specialty: Family Practice Address: [address], [address], [place], [address] Email: Aba Hightower MD Attending Provider Non-Staff Family Provider Specialty: Neurology Address: [address], [place], [address] Email: Visit Number Visit Number 18 Discharge Summary PT-OP-B Current Condition Start: 10/03/17 13:46 Freq: Status: Active Protocol: Document 10/03/17 12:00 DCW (Rec: 10/03/17 14:16 DCW [id number]) Current Condition History of Current Condition Onset Date Diagnosed two years ago Current Complaints Decreased balance and gait secondary to Parkinson's disease History of Current Condition Pt is an 81 year old male presenting two years s/p diagnosis of Parkinson's disease. Pt notes that overall , he is doing well, but has some difficulty with his walking and some of his balance. Pt notes that his balance seems to have worsened recently after having trouble with increase tear production in his right eye, which impact his vision and makes him feel less balanced. Pt would like to improve his walking ability as well, and complains of his right leg kicking out during his gait pattern. Future Testing and Treatments Planned Addition of LVST Big program if necessary following his current Physical Therapy program. Treatment Goals Patient/Caregiver Goals Improve gait, improve balance Prior Functional Status Baseline Function- ADL's Independent Baseline Function- Mobility Independent Baseline Function- Gait WNL Current Functional Impairments (Reported) Functional Limitations- Mobility/Gait Pt complains of difficulty walking, patricularly with circumduction of his right foot during swing phase. PT-OP-C Subjective Start: 10/03/17 13:46 Freq: Status: Active Protocol: Document 03/29/18 09:45 DCW (Rec: 03/29/18 10:28 DCW [id number]) OP-PT Subjective Patient Comments Patient Comments Pt reports that he is better than last week. PT-OP-D Balance Start: 10/03/17 13:46 Freq: Status: Active Protocol: Document 02/15/18 09:45 DCW (Rec: 02/15/18 10:26 DCW [id number]) Balance Tests [place] Balance Test [place] Balance Test Score 50/56 [place] Impairment Rating 1 to 19% Impaired (Score 45-55 ) [place] Balance Assessment Evaluation Sitting to Standing Ability Independent w/out Hands Unsupported Stance Safely- 2 minutes Sitting Unsupported, Feet on Floor Safely- 2 minutes Standing to Sitting Ability Safely, Minimal Hand Use Transfer Ability Safely, Minimal Hand Use Unsupported Stance- Eyes Closed Safely, 10 seconds Unsupported Stance- Eyes Open Independent, 1 minute Reaching Forward Standing Safely, 5 inches Pick- Up Object From Floor Independent/Safe Look Behind Shoulder - Standing Shifts Weight Well Turning 360 Degrees Turns , < 4 secs Unsupported Stance, Alternating Feet on (I)- 8 Steps in 20 secs Stair Unsupported Tandem Stance Holds Tandem- 30 seconds Unilateral Leg Stance Lifts Leg/Unable to Hold Total Score [place] Total Score (out of 56 points) 50 [place] Impairment Rating 1 to 19% Impaired (Score 45-55 ) PT-OP-E Functional Tests Start: 10/03/17 13:46 Freq: Status: Active Protocol: Document 02/15/18 09:45 DCW (Rec: 02/15/18 10:26 DCW [id number]) Functional Tests Functional Gait Assessment Score 23/30 Functional Gait Assessment Impairment 20 to <40% Impaired (Score 19- Rating 24) PT-OP-G Mobility & Gait Start: 10/03/17 13:46 Freq: Status: Active Protocol: Document 02/15/18 09:45 DCW (Rec: 02/15/18 10:26 DCW [id number]) OP Gait Assessment Gait Gait Assistance Required: Independent Distance (Feet) 340 Able to Maintain Weight Bearing Status Yes During Gait Assistive Devices Assistive Device None Orthotic/Prosthetic Devices or Brace: No Gait Deviations General Gait Pattern Decreased Feet Clearance Factors Limiting Gait Function Factors Limiting Gait Function Limited Range of Motion Comments Gait Comments Pt left foot pronation has is now minimal, however pt displays continued right foot circumduction during swing phase. PT-OP-H Neuro Start: 10/03/17 13:46 Freq: Status: Active Protocol: Document 12/07/17 09:45 DCW (Rec: 12/07/17 10:15 DCW [id number]) Coordination Evaluation Lower Extremity Tests Right Alternate Heel to Knee; Heel to Toe Test Normal Performance Heel on Sosa Test Normal Performance Left Alternate Heel to Knee; Heel to Toe Test Normal Performance Heel on Sosa Test Normal Performance PT-OP-M Strength Start: 10/03/17 13:46 Freq: Status: Active Protocol: Document 02/15/18 09:45 DCW (Rec: 02/15/18 10:26 DCW [id number]) Hip Strength Hip Manual Muscle Testing Right Flexion (L2) 5 Normal Abduction 5 Normal Adduction 5 Normal Left Flexion (L2) 5 Normal Abduction 5 Normal Adduction 5 Normal Knee Strength Knee Manual Muscle Testing Right Flexion (S2) 5 Normal Extension (L3) 5 Normal Left Flexion (S2) 5 Normal Extension (L3) 5 Normal Ankle/Foot Strength Ankle and Foot Manual Muscle Testing Right Dorsiflexion (L4) 5 Normal Plantarflexion (S1) 5 Normal Left Dorsiflexion (L4) 5 Normal Plantarflexion (S1) 5 Normal PT-OP-T Assessment and Plan Start: 10/03/17 13:46 Freq: Status: Active Protocol: Document 05/30/18 11:05 DCW (Rec: 05/30/18 11:12 DCW [id number]) Physical Therapy Assessment Impairments Impairments Activity Tolerance Balance Gait Soft Tissue Mobility Strength Goals Five Impairment Gait Short Term Goal (STG) Pt to decrease left over- pronation to WNL STG Duration MET Director Risk Goal (LTG) Pt to display no circumduction of right foot during swing phase LTG Duration 04/17/18 Four Impairment LE Strength Longterm Goal (LTG) LE MMT to be grossly 5/5 LTG Duration Met Three Impairment Functional Gait Assessment Longterm Goal (LTG) Pt to score 23/30 on the FGA LTG Duration Met Two Impairment [place] Balance Short Term Goal (STG) Pt to score 50/56 on the [place] Balance Scale STG Duration Met One Impairment Activity participation Short Term Goal (STG) Pt to report no loss of balance during ambulation over a period of two weeks STG Duration Met Director Risk Goal (LTG) Pt to report no kicking out of his right foot while walking LTG Duration 04/17/18 Assessment Summary Assessment Pt no-showed and canceled his last two scheduled visits, and did not schedule any further follow-up sessions. Pt has now not been seen in two months, and his POC has . Pt will be discharged from skilled therapy at this time, and will require a new referral in order to return. Physical Therapy Plan Frequency and Duration Frequency of Treatment 2x/Week Duration of Treatment 10 weeks Plan of Care Start Date 02/15/18 Plan of Care End Date 04/26/18 Therapeutic Interventions Therapeutic Interventions Aquatic Therapy Balance Training Coordination Training Gait Training Home Exercise Program Neuromuscular Re-education Patient/Caregiver Education Soft Tissue Mobilization Therapeutic Activities Therapeutic Exercises Discharge Physical Therapy Discharge Reasons No Longer Attending PT Next Visit Focus/Plan Next Note Type Discharge Summary Next Visit Plan Gait training, LE strengthening, balance training.
== END 2018-06-05 15:37 ==
LOC: PHYS 09:45
PROVIDERS: Family Provider Psychiatry & Neurology Neurology; PCP Family Medicine; Visit Provider Psychiatry & Neurology Neurology
DX: G20 Parkinson's disease (principal)
CPT/HCPCS: 97110; 97112; 97162

== ENCOUNTER → 2018-07-04 09:33 | Outpatient (CLI) | payer MEDICARE, SELFPAY ==
--- NOTE | 2018-07-04 09:37 | DI.RAD.S_ITS ---
PROCEDURE: XR CHEST 2V INDICATIONS: cough TECHNIQUE: 2 views of the chest were acquired. COMPARISON: None. FINDINGS: Surgical changes and devices: None. Lungs and pleura: Lungs are abnormal with an interstitial prominence, chronicity uncertain given the absence of comparison plain films. No pleural effusions or pneumothorax. Mediastinum: Mediastinal contours are normal. Heart size is normal. Bones and chest wall: No suspicious bony abnormalities. Soft tissues appear unremarkable. IMPRESSION: Interstitial prominence, no cardiomegaly present. Chronicity is uncertain given the absence of comparison films. This may reflect long-standing smoking history, for example. No pneumonia found. No mass lesion identified. Dictated by: Edwin Marin M.D. on 07/04/2018 at 10:25 Approved by: Edwin Marin M.D. on 07/04/2018 at 10:25
== END ==
PROVIDERS: Family Provider Psychiatry & Neurology Neurology; Visit Provider Physician Assistant
DX: R05 Cough (principal)
CPT/HCPCS: 71046

== ENCOUNTER 2019-01-28 01:14 | Inpatient (IN) | payer MEDICARE, SELFPAY ==
[2019-01-28] VITALS (15 sets, daily range): BP systolic 120–147; BP diastolic 55–77; PULSE 55–69; RESP 15–21; TEMP 36.4–36.9; O2SAT 95–99; BMI 26.9
--- NOTE | 2019-01-28 01:23 | ED_ITS ---
HPI - Nausea/Vomiting/Diarrhea General Chief complaint: Nausea/Vomiting/Diarrhea Stated complaint: Abd Pain Time Seen by Provider: 01/28/19 01:15 Source: patient and EMS Mode of arrival: EMS Limitations: no limitations History of Present Illness HPI Narrative: 83-year-old male never smoker with history of hypertension and Parkinson's presents by EMS for evaluation of a recurrence of the abdominal pain and nausea and vomiting that landed him in [facility] 5 days ago. Prior to that visit the patient had been out to eat dinner at a [employer] restaurant with his and he developed some discomfort and symptoms that he and medical staff thought was likely food poisoning. He had a thorough evaluation and felt much better after some fluids and antinausea medicine. He went home was in his normal state of health until he started developing some vague lower abdominal pain and had 1 episode of nausea and vomiting tonight. He denies any fever or chills. He is not dizzy nor weak or lightheaded. Pain improved prior to arrival MD complaint: nausea, vomiting and abdominal pain Onset (ago): hour(s) Description of Vomiting: food contents and resolved Description of Diarrhea: none Associated Abdominal Pain: Yes Location of pain: diffuse Severity: mild Quality: cramping and aching Pain Consistency: now resolved Relieving factors: vomiting Exacerbating factors: none Associated symptoms: denies other symptoms Related Data Home Medications Medication Instructions Recorded Confirmed carbidopa-levodopa 1 tab PO TID #0 07/18/17 01/28/19 hyoscyamine sulfate 0.125 mg SUBLINGUAL Q DAY PRN #0 07/18/17 01/28/19 Previous Rx's Medication Instructions Recorded atenolol 25 mg tablet 25 mg PO Q DAY #30 tab 01/22/19 Allergies Allergy/AdvReac Type Severity Reaction Status Date / Time No Known Drug Allergies Allergy Verified 01/28/19 01:27 Review of Systems Constitutional Constitutional: Denies chills, Denies fatigue, Denies fever(s), Denies frequent falls, Denies lethargy and Denies weakness Eyes Eyes: Denies change in vision, Denies eye discharge, Denies irritation and Denies loss of vision ENT Ears, Nose, Mouth, and Throat: Denies change in voice, Denies dizziness, Denies neck pain, Denies sore throat and Denies throat swelling Cardiovascular Cardiovascular: Denies chest pain, Denies irregular heart rhythm, Denies lightheadedness, Denies palpitations, Denies dyspnea, Denies dyspnea on exertion and Denies orthopnea Respiratory Respiratory: Denies cough, Denies dyspnea, Denies dyspnea on exertion and Denies wheezing Gastrointestinal Gastrointestinal: Reports abdominal pain, Denies change in bowel habits, Denies diarrhea, Reports nausea and Reports vomiting Genitourinary Genitourinary: Denies hematuria, Denies flank pain, Denies urinary incontinence and Denies urinary urgency Musculoskeletal Musculoskeletal: Denies back pain, Denies muscle weakness, Denies neck pain, Denies numbness and Denies tingling Integumentary/Breasts Skin/Breast: Denies pruritus, Denies erythema, Denies rash and Denies wounds Neurologic Neurologic: Denies behavioral changes, Denies confusion, Denies dizziness, Denies frequent falls, Denies loss of vision, Denies numbness, Denies tingling and Denies weakness Psychiatric Psychiatric: Denies anxiety, Denies behavioral changes, Denies confusion, Denies depression, Denies homicidal ideation and Denies suicidal ideation Endocrine Endocrine: Denies fatigue, Denies flushing and Denies palpitations Hematologic/Lymphatic Hematologic/Lymphatic: Denies easy bruising Allergic/Immunologic Allergic/Immunologic: Denies urticaria, Denies throat swelling and Denies wheezing Patient History Social History Smoking Status: Never smoker Social History Smoking Status: Never smoker Substance Use Type: does not use Exam Narrative Exam Narrative: GENERAL: [83] year old patient appears stated age. Well- nourished, well-developed patient, in mild distress. HEAD: Atraumatic. Normocephalic. EYES: Pupils equal round and reactive. Extraocular motions intact. No scleral icterus. No injection or drainage. ENT: Nose without bleeding, purulent drainage. Throat without erythema, tonsillar hypertrophy or exudate. Airway patent. NECK: Trachea midline. Non tender CARDIOVASCULAR: Regular rate and rhythm without murmurs, gallops, or rubs. RESPIRATORY: Clear to auscultation. Breath sounds equal bilaterally. No wheezes, rales, or rhonchi. GASTROINTESTINAL: Abdomen soft, non-tender, nondistended. EXTREMITIES: No edema or joint tenderness. BACK: Nontender without deformity or crepitance. No flank tenderness. NEURO: AOx3. SKIN: No rash or erythema of visible areas Initial Vital Signs Initial Vital Signs: Vital Signs Temperature 98.3 F 01/28/19 01:22 Pulse Rate 66 01/28/19 01:22 Respiratory Rate 15 01/28/19 01:22 Blood Pressure 147/68 H 01/28/19 01:22 Pulse Oximetry 95 01/28/19 01:22 Course Orders Ordered: ED Orders 01/28/19 01:30 Complete Blood Count AUTO DIFF Stat Comprehensive Metabolic Panel Stat Lipase Stat Troponin & CK Cardiac Panel Stat 01/28/19 01:32 XR acute abdomen series Stat 01/28/19 02:33 CT abdomen pelvis w con Stat Sodium Chloride (Normal Saline 0.9%) 500 mls @ 150 mls/hr IV CONT BHAVNA Last Admin: 01/28/19 02:25 Dose: 150 mls/hr Documented by: WILLIAM Ondansetron HCl (Zofran) 4 mg IV Q4HR PRN PRN Reason: Nausea And Vomiting Last Admin: 01/28/19 01:39 Dose: 4 mg Documented by: ULISSES Discontinued Medications Sodium Chloride (Normal Saline 0.9%) 500 mls @ 1,000 mls/hr IV BOLUS ONE Stop: 01/28/19 01:48 Last Infusion: 01/28/19 02:23 Dose: 0 mls/hr Documented by: Admin: 01/28/19 01:39 Dose: 1,000 mls/hr Documented by: ULISSES Lidocaine HCl (Urojet) 5 ml TOP NOW ONE Stop: 01/28/19 04:30 Pantoprazole Sodium (Protonix) 40 mg IV NOW ONE Stop: 01/28/19 01:20 Last Admin: 01/28/19 01:27 Dose: 40 mg Documented by: ULISSES Reevaluation(s) Reevaluation #1: patient begins vomiting again, Zofran ordered Consultations Consultation #1: Dr. Duggan is happy to admit. NPO, NG (18FR), Saline at 150mL, Zofran. Consultation #2: Hospitalist (Lukas) contacted on phone she will see patient and write consult Vital Signs Vital signs: Vital Signs - 8 hr 01/28/19 01:22 01/28/19 02:29 Temperature 98.3 F Pulse Rate 66 55 L Respiratory Rate 15 16 Blood Pressure 147/68 H Blood Pressure [Right Arm] 144/59 H Pulse Oximetry 95 MDM - Nausea/Vomiting/Diarrhea Lab Data Result diagrams: 01/28/19 01:30 01/28/19 01:30 Labs: Lab Results 01/28/19 01/28/19 01/28/19 Range/Units 01:30 01:30 01:30 WBC 8.8 (4.5-11.0) X10^3/uL RBC 4.53 (4.5-5.9) X10^6/uL Hgb 13.8 (13.5-17.5) g/dL Hct 40.6 L (41-53) % MCV 89.7 (80-100) fL MCH 30.4 (26-34) PG MCHC 33.9 (30-36) % RDW 13.5 (11.6-14.8) % Plt Count 289 (150-400) X10^3/uL Neut % (Auto) 77.7 H (50-75) % Lymph % (Auto) 7.4 L (25-40) % [place] % (Auto) 14.2 H (3-14) % Eos % (Auto) 0.4 L (2-4) % Baso % (Auto) 0.3 (0-2) % Neut # (Auto) 6800 (1556-9582) /uL Lymph # (Auto) 700 L (8854-1689) /uL [place] # (Auto) 1200 H (0-900) /uL Eos # (Auto) 0 (0-450) /uL Baso # (Auto) 0 (0-100) /uL Sodium 136 L (137-145) mmol/L Potassium 4.0 (3.4-5.1) mmol/L Chloride 101 (98-107) mmol/L Carbon Dioxide 27 (22-32) mmol/L BUN 16 (9-20) mg/dL Creatinine 1.00 (0.66-1.25) mg/dL Estimated GFR > 60.0 (>60) mL/min BUN/Creatinine Ratio 16.0 (6-22) Glucose 180 H (80-110) mg/dL Calcium 9.2 (8.4-10.2) mg/dL Total Bilirubin 0.4 (0.2-1.3) mg/dL AST 22 (17-59) IU/L ALT 9 L (21-72) IU/L Alkaline Phosphatase 67 (38-126) U/L Total Creatine Kinase 54 L (55-170) U/L CK-MB (CK-2) TNP CK-MB (CK-2) Rel Index TNP Troponin I < 0.012 (0.01-0.034) ng/mL Total Protein 7.0 (6.3-8.2) g/dL Albumin 4.1 (3.5-5.0) g/dL Globulin 2.9 (1.7-4.1) g/dL Albumin/Globulin Ratio 1.4 (1.0-2.8) Lipase 122 (23-300) U/L Urine Dip Bedside Urine Glucose Negative Bedside Urine Bilirubin - Negative Bedside Urine Ketone ++ 40 Urine Specific [place] 1.005 Bedside Urine Occult Blood - Negative Bedside Urine pH 7.0 Bedside Urine Protein +/- 15 Bedside Urine Urobilinogen +/- 1mg Bedside Urine Nitrite - Negative Bedside Urine Leukocytes - Negative Esterase Imaging Data CT scan - abdomen: Radiologist's impression: Proximal small-bowel obstruction with indeterminate wall thickening in the proximal jejunum. A subtle mass is a possibility Discharge Plan Departure Patient Disposition: Admitted As Inpatient Clinical Impression: Partial small bowel obstruction Referrals: Manoj Sanchez MD [Primary Care Provider] - Admit Date/Time: 01/28/19 04:35 Admit Provider: Jose Duggan
[2019-01-28] MEDS: PANTOPRAZOLE 40 MG VIAL IV (01:27)
--- NOTE | 2019-01-28 01:32 | DI.RAD.S_ITS ---
PROCEDURE: XR ACUTE ABDOMEN SERIES INDICATIONS: Abdominal pain, N/V TECHNIQUE: One view chest and two views of the abdomen were acquired. COMPARISON: [facility], CR, XR CHEST 2V, 07/04/2018, 9:50. FINDINGS: Surgical changes and devices: Numerous small metallic bodies in the lower pelvis, likely prostatic radiotherapy seeds. Surgical clip projecting over the left upper abdomen. Chest: Lungs are clear. Heart size is normal. No pleural effusions. No pneumoperitoneum. Abdomen: Bowel gas pattern is normal. No suspicious calcifications. Visualized solid organ contours appear normal. Bones: No suspicious bony lesions. IMPRESSION: Nonspecific bowel gas pattern. No evidence of free intraperitoneal air. No acute cardiopulmonary findings. Dictated by: Micheal Son M.D. on 01/28/2019 at 7:18 Approved by: Micheal Son M.D. on 01/28/2019 at 7:22
[2019-01-28] MEDS: ONDANSETRON 4 MG/2 ML INJ IV (01:39)
[2019-01-28] MEDS: SODIUM CHLORIDE 0.9% 500 ML 1000 ML IV (01:39)
[2019-01-28 01:40] LABS: Add Manual Diff / Slide Review NO; Basophils Absolute Auto 0 /uL (0-100); Basophils Percent Auto 0.3 % (0-2); Eosinophils Absolute Auto 0 /uL (0-450); Eosinophils Percent Auto 0.4 % (2-4); Hematocrit 40.6 % (41-53); Hemoglobin 13.8 g/dL (13.5-17.5); Lymphocytes Absolute Auto 700 /uL (1100-4500); Lymphocytes Percent Auto 7.4 % (25-40); Mean Corpuscular HGB Conc 33.9 % (30-36); Mean Corpuscular Hemoglobin 30.4 PG (26-34); Mean Corpuscular Volume 89.7 fL (80-100); Monocytes Absolute Auto 1200 /uL (0-900); Monocytes Percent Auto 14.2 % (3-14); Neutrophils Absolute Auto 6800 /uL (1500-7000); Neutrophils Percent Auto 77.7 % (50-75); Platelet Count 289 X10^3/uL (150-400); Red Blood Cell Count 4.53 X10^6/uL (4.5-5.9); Red Cell Distribution Width 13.5 % (11.6-14.8); White Blood Cell Count 8.8 X10^3/uL (4.5-11.0)
[2019-01-28 01:49] LABS: Alanine Aminotransferase 9 IU/L (21-72); Albumin 4.1 g/dL (3.5-5.0); Albumin Globulin Ratio 1.4 (1.0-2.8); Alkaline Phosphatase 67 U/L (38-126); Aspartate Aminotransferase 22 IU/L (17-59); Bilirubin Total 0.4 mg/dL (0.2-1.3); Blood Urea Nitrogen 16 mg/dL (9-20); Calcium 9.2 mg/dL (8.4-10.2); Carbon Dioxide 27 mmol/L (22-32); Chloride 101 mmol/L (98-107); Estimated Glomerular Filt Rate > 60.0 mL/min (>60); Globulin 2.9 g/dL (1.7-4.1); Glucose 180 mg/dL (80-110); HEMOLYSIS < 15 (0-50); Lipase 122 U/L (23-300); Sodium 136 mmol/L (137-145)
[2019-01-28] MEDS: SODIUM CHLORIDE 0.9% 500 ML 150 ML IV (02:25)
--- NOTE | 2019-01-28 02:33 | DI.CT.S_ITS ---
PROCEDURE: CT ABDOMEN PELVIS W CON INDICATIONS: abd pain, N/V TECHNIQUE: After the administration of intravenous contrast, 5 mm thick sections acquired from the diaphragm to the symphysis. 5 mm coronal and sagittal reformats were acquired. For radiation dose reduction, the following was used: automated exposure control, adjustment of mA and/or kV according to patient size. COMPARISON: [facility], CR, XR ACUTE ABDOMEN SERIES, 01/28/2019, 1:37. FINDINGS: Image quality: Excellent. ABDOMEN: Lung bases: Volume loss of the lung bases. No focal consolidation. Heart size is normal. Solid organs: Liver is normal in size and enhancement. Gallbladder is distended. Biliary system is non dilated. Pancreas enhances normally. Spleen is normal in size and enhancement. No adrenal nodules. Kidneys are normal in size and cortical enhancement. 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 These measure up to approximately 2.3 cm in the right kidney and 7.3 cm and the left kidney. Peritoneum and bowel: The proximal bowel is fluid-filled and mildly dilated up to 4 cm with apparent transition point in the distal duodenum/proximal jejunum where the bowel is a strictured appearance. There is also fluid present throughout the stomach and captured esophagus. The distal small bowel and appendix are within normal limits. There are diverticula of the descending and sigmoid colon. Nodes and vessels: No retroperitoneal or mesenteric adenopathy by size criteria. Aorta and inferior vena cava are normal in size. Miscellaneous: Small fat-containing umbilical hernia. PELVIS: Genitourinary: Bladder wall thickness is normal. Radiation seeds within the prostate. Miscellaneous: No inguinal hernias or adenopathy. Bones: No suspicious bony lesions. Remote appearing compression fracture of T11 with approximately 30% height loss. Multilevel degenerative changes of the lumbar spine. IMPRESSION: Proximal small bowel obstruction extending into the distal duodenum/proximal jejunum with questionable stricturing of the bowel wall. Given the possibility that malignancy can result in a strictured bowel, recommend followup evaluation following resolution of symptoms. Dictated by: Micheal Son M.D. on 01/28/2019 at 7:22 Approved by: Micheal Son M.D. on 01/28/2019 at 7:42
[2019-01-28 02:48] LABS: Creatine Kinase 54 U/L (55-170)
[2019-01-28 03:01] LABS: Troponin I < 0.012 ng/mL (0.01-0.034)
[2019-01-28] MEDS: LIDOCAINE 2% (UROJET) 5 ML GEL TOP (05:07)
--- NOTE | 2019-01-28 05:42 | DI.RAD.S_ITS ---
PROCEDURE: XR CHEST 1V INDICATIONS: confirm NG placement TECHNIQUE: One view of the chest was acquired. COMPARISON: [facility], CR, XR CHEST 2V, 07/04/2018, 9:50. FINDINGS: Surgical changes and devices: Interval placement of enteric tube with tip and side-port projecting over the expected location of the stomach. Lungs and pleura: Lungs are clear. No pleural effusions or pneumothorax. Mediastinum: Mediastinal contours appear normal. Heart size is normal. Bones and chest wall: No suspicious bony lesions. Overlying soft tissues appear unremarkable. IMPRESSION: Interval placement of enteric tube with tip and side-port projecting over the expected location of the stomach. Dictated by: Micheal Son M.D. on 01/28/2019 at 7:44 Approved by: Micheal Son M.D. on 01/28/2019 at 7:45
--- NOTE | 2019-01-28 06:43 | P.CONS_ITS ---
History of Present Illness Consult details Date Patient Seen: 01/28/19 Time Patient Seen: 06:30 Chief complaint: Abd Pain Reason for consult: Parkinson's, hypertension Requesting provider: Jose Duggan Narrative: Brandon Singh is an 83 y.o. male with hypertension and Parkinson's disease was admitted by the ED provider with a diagnosis of a partial small bowel obstruction. He has a 4-day history of sudden onset nausea and vomiting he attributed to food poisoning from eating at a local [place] restaurant. He had daily bowel movements. He was initially seen at [facility], diagnosed with gastritis and disharged home with a prescription for Zofran. He states the vomiting resolved but continued to have abdominal pain. He denies fever, sweats or chills, denies shortness of breath or chest pain, does endorse abdominal pain, denies dysurea, diarrhea or constipation. Patient appears to be confused, do not know if this is his baseline or a result of medications provided to him. He does affirm he has Parkinson's, but denies he has hypertension and when asked about his hypertensive medications, stated he had to go in to see his PCP to get his prescriptions, not addressing the question. [facility] Medical History (Updated 01/28/19 @ 06:53 by JARRED Dougherty) Essential hypertension with goal blood pressure less than 140/90 (Chronic 07/04/15) Parkinson's disease (Chronic 07/04/15) Surgical History (Updated 01/28/19 @ 06:53 by JARRED Dougherty) Hx of malignant neoplasm of prostate (Acute) Social History household members: spouse Smoking Status: Never smoker Social History household members: spouse Smoking Status: Never smoker Meds Home Medications and Allergies Home Medications Medication Instructions Recorded Confirmed Type carbidopa-levodopa 1 tab PO TID #0 07/18/17 01/28/19 History hyoscyamine sulfate 0.125 mg SUBLINGUAL Q DAY PRN #0 07/18/17 01/28/19 History atenolol 25 mg tablet 25 mg PO Q DAY #30 tab 01/22/19 01/28/19 Rx Allergies Allergy/AdvReac Type Severity Reaction Status Date / Time No Known Drug Allergies Allergy Verified 01/28/19 01:27 Review of Systems Review of Systems ROS Unobtainable: All systems reviewed & are unremarkable except as noted in HPI and below Exam Vital Signs (past 8 hours): - 01/28/19 01:22 01/28/19 02:29 01/28/19 03:00 Temperature 98.3 F Pulse Rate 66 55 L 69 Respiratory Rate 15 16 19 Blood Pressure 147/68 H Blood Pressure [Right Arm] 144/59 H 137/60 Pulse Oximetry 95 95 01/28/19 03:30 01/28/19 04:00 01/28/19 04:30 Temperature Pulse Rate 59 L 62 69 Respiratory Rate 20 20 21 Blood Pressure Blood Pressure [Right Arm] 121/55 L 126/59 L 135/61 Pulse Oximetry 97 95 98 01/28/19 05:00 01/28/19 05:16 01/28/19 05:20 Temperature 97.7 F Pulse Rate 65 68 62 Respiratory Rate 18 20 21 Blood Pressure 123/66 127/74 Blood Pressure [Right Arm] 123/66 Pulse Oximetry 96 97 95 Oxygen Delivery Method Room Air Oxygen Flow Rate 0 Narrative Exam Narrative: Gen: Alert, oriented, well-developed 83 y.o. male, mildly confused HEENT: normocephalic, atraumatic, conjunctiva clear, sclera non-icteric, oral mucosa pink and moist Neck: supple, full ROM Resp: Lungs CTA, non-labored breathing CV: RRR, no murmur or rubs Abd: mildly distended, diffusely tender, hypoactive BTs. NG tube draining solid stool matter. Skin: no lesions or rashes, dry and intact Neuro: Alert and oriented X w/no focal deficits, however seems to be confused and repeating questions Extremities: moves all 4 extremities, is ambulatory, negative Itz?s sign Psyche: normal mood and affect. Objective Labs Result Diagrams: 01/28/19 01:30 01/28/19 01:30 Labs: Laboratory Results - last 24 hr 01/28/19 01/28/19 01/28/19 01:30 01:30 01:30 WBC 8.8 RBC 4.53 Hgb 13.8 Hct 40.6 L MCV 89.7 MCH 30.4 MCHC 33.9 RDW 13.5 Plt Count 289 Neut % (Auto) 77.7 H Lymph % (Auto) 7.4 L [place] % (Auto) 14.2 H Eos % (Auto) 0.4 L Baso % (Auto) 0.3 Neut # (Auto) 6800 Lymph # (Auto) 700 L [place] # (Auto) 1200 H Eos # (Auto) 0 Baso # (Auto) 0 Sodium 136 L Potassium 4.0 Chloride 101 Carbon Dioxide 27 BUN 16 Creatinine 1.00 Estimated GFR > 60.0 BUN/Creatinine Ratio 16.0 Glucose 180 H Calcium 9.2 Total Bilirubin 0.4 AST 22 ALT 9 L Alkaline Phosphatase 67 Total Creatine Kinase 54 L CK-MB (CK-2) TNP CK-MB (CK-2) Rel Index TNP Troponin I < 0.012 Total Protein 7.0 Albumin 4.1 Globulin 2.9 Albumin/Globulin Ratio 1.4 Lipase 122 Assessment & Plan Assessment & Plan narrative: Brandon Singh was admitted by General Surgery for monitoring of a small bowel obstruction and have requested the Hospitalist Service to consult on his medical issues. Consult is appreciated and we will follow with you. Patient is NPO and his oral medications will be held. 1. SBO, acute and present on admission * Primary is Dr. Duggan, General Surgery * He is NPO with an NG tube 2. Essential Hypertension, chronic and stable, POA * Currently takes atenolol 25 mg po daily * Consider low dose IV lopressor if he develops above normal baseline hype rtension 3. Parkinson's disease, chronic and stable, POA * Home doses of carbadopa/levadopa and entacapone 200 mg are being held. Entacapone has been being titrated up, and his current dose needs to be confirmed with his pharmacy. FEN: IV NS at 150 ml/hour, NPO, chemistries in the am. VTE Prophylaxis: Bilateral SCDs Disposition: Unknown at this time Code status: Full Code Consult time: 55 minutes Meds reconciled: Yes based on current med list Time Spent With Patient Time with patient: 15-24 minutes
--- NOTE | 2019-01-28 07:44 | PC.NURSE ---
Pt admitted from ED proximal small bowel obstruction. Arrived to floor at 0520. A&O x4, did forget home phone number and name of condition Parkinson's. Denies abd pain and nausea at admit. PIV to left forearm. Skin intact. Oriented to room, call light. Reinforced fall precautions. Bed alarm on. NG to LIS. Ext measures 18inches. Well secured at right nare and pinned to gown. Pt NPO. Will develop plan for Parkinson meds. Med recon not done, plan to call to bring in med list. Need to fill in emergency contact phone number and next of kin which is spouse, Violette.
--- NOTE | 2019-01-28 12:25 | P.PN_ITS ---
Subjective <Duncan Britt MD - Last Filed: 01/28/19 13:10> Subjective Date Patient Seen: 01/28/19 Time Patient Seen: 12:25 Interval history: He is seen today to follow-up his small-bowel obstruction, Parkinson's disease and hypertension. He is quite talkative, talking about his family and their successes. He says that he is feeling much better with the NG tube in draining out the gastric fluid. His abdomen is quite soft now. Appar ently incorrectly, he tells me that he is expecting to have surgery today. Exam <Duncan Britt MD - Last Filed: 01/28/19 13:10> Vital Signs (past 8 hours): - 01/28/19 04:30 01/28/19 05:00 01/28/19 05:16 Temperature Pulse Rate 69 65 68 Respiratory Rate 21 18 20 Blood Pressure 123/66 Blood Pressure [Right Arm] 135/61 123/66 Pulse Oximetry 98 96 97 01/28/19 05:20 01/28/19 08:00 Temperature 97.7 F 97.5 F L Pulse Rate 62 58 L Respiratory Rate 21 20 Blood Pressure 127/74 123/63 Blood Pressure [Right Arm] Pulse Oximetry 95 97 Oxygen Delivery Method Room Air Oxygen Flow Rate 0 Narrative Exam Narrative: He is alert and oriented x3. No apparent distress. Heart is regular rate and rhythm without murmur. Extremities have no ankle edema. Abdomen is soft, not tender, no organomegaly, bowel sounds are absent. NG tube is in the right nostril. He has no obvious pill rolling tremor, masked facies or stiffness at this time. Objective <Duncan Britt MD - Last Filed: 01/28/19 13:10> Labs Result Diagrams: 01/28/19 01:30 01/28/19 01:30 Labs: Laboratory Results - last 24 hr 01/28/19 01/28/19 01/28/19 01:30 01:30 01:30 WBC 8.8 RBC 4.53 Hgb 13.8 Hct 40.6 L MCV 89.7 MCH 30.4 MCHC 33.9 RDW 13.5 Plt Count 289 Neut % (Auto) 77.7 H Lymph % (Auto) 7.4 L [place] % (Auto) 14.2 H Eos % (Auto) 0.4 L Baso % (Auto) 0.3 Neut # (Auto) 6800 Lymph # (Auto) 700 L [place] # (Auto) 1200 H Eos # (Auto) 0 Baso # (Auto) 0 Sodium 136 L Potassium 4.0 Chloride 101 Carbon Dioxide 27 BUN 16 Creatinine 1.00 Estimated GFR > 60.0 BUN/Creatinine Ratio 16.0 Glucose 180 H Calcium 9.2 Total Bilirubin 0.4 AST 22 ALT 9 L Alkaline Phosphatase 67 Total Creatine Kinase 54 L CK-MB (CK-2) TNP CK-MB (CK-2) Rel Index TNP Troponin I < 0.012 Total Protein 7.0 Albumin 4.1 Globulin 2.9 Albumin/Globulin Ratio 1.4 Lipase 122 Assessment & Plan <H Monty Britt MD - Last Filed: 01/28/19 13:10> Assessment & Plan narrative: 1. SBO, acute and present on admission Primary is Dr. Duggan, General Surgery He is NPO with an NG tube but no surgery is planned for now. 2. Essential Hypertension, chronic and stable, POA Holding for now - atenolol 25 mg po daily Consider low dose IV lopressor if he develops above normal baseline hypertension 3. Parkinson's disease, chronic and stable, POA Home doses of carbadopa/levadopa and entacapone 200 mg are being held. Entacapone has been being titrated up, and his current dose needs to be confirmed with his pharmacy. The only topical Parkinson's medicine that I am aware of is Exelon, which is used only for confusion/dementia. There is no active tremoring at this time. Quality <H Monty Britt MD - Last Filed: 01/28/19 13:10> VTE Deep Vein Thrombosis/Pulmonary Embolism Present on Admission: No
--- NOTE | 2019-01-28 12:52 | PM.HP.1 ---
History of Present Illness History of Present Illness Date Patient Seen: 01/28/19 Time Patient Seen: 12:52 Chief complaint: Abd Pain Narrative: Patient was seen at 7:00 a.m. this morning and again now. He is a gentleman who was little confused this morning but a little clearer now. He has been having nausea and vomiting and presented to the ER with same. He does not seem to be able to give me many details about that. He denied any abdominal pain. He apparently was at [facility] with similar complaints not long ago and was told he had possible gastroenteritis. He has had no prior operations on his abdomen. No blood in his stool. Patient History Medical History Essential hypertension with goal blood pressure less than 140/90 (Chronic 07/04/15) Parkinson's disease (Chronic 07/04/15) Surgical History Hx of malignant neoplasm of prostate (Acute) Social History household members: spouse Smoking Status: Never smoker Family & Social History Social History: household members spouse Prior Living Arrangements House Safety & Behavioral: Feels Safe in Current Yes Environment Been Physically Hurt or No Threatened By a Person Suicidal Ideation Description None Tobacco & Substance use: Smoking Status Never smoker alcohol intake frequency a few times a week Substance Use Type does not use Meds Home Medications and Allergies Home Medications Medication Instructions Recorded Confirmed Type carbidopa-levodopa 1 tab PO TID #0 07/18/17 01/28/19 History hyoscyamine sulfate 0.125 mg SUBLINGUAL Q DAY PRN #0 07/18/17 01/28/19 History atenolol 25 mg tablet 25 mg PO Q DAY #30 tab 01/22/19 01/28/19 Rx Allergies Allergy/AdvReac Type Severity Reaction Status Date / Time No Known Drug Allergies Allergy Verified 01/28/19 01:27 Review of Systems Review of Systems Narrative: Suffers from Parkinson's disease. He also has hypertension. On medications 1st both of those. No seizures or blackouts. No breathing difficulties. No asthma. No heart problems he recalls. No kidney problems though apparently has had prostate radiation but he said it was done as a prevention. Denied having prostate cancer. He has never had a colonoscopy. He has a retinal problem is right eye that has decreased the acuity on it. He does were glasses. He does not have any false teeth and has no trouble swallowing. Exam Vital Signs (past 8 hours): - 01/28/19 05:00 01/28/19 05:16 01/28/19 05:20 Temperature 97.7 F Pulse Rate 65 68 62 Respiratory Rate 18 20 21 Blood Pressure 123/66 127/74 Blood Pressure [Right Arm] 123/66 Pulse Oximetry 96 97 95 01/28/19 08:00 01/28/19 12:00 Temperature 97.5 F L 98.4 F Pulse Rate 58 L 60 Respiratory Rate 20 18 Blood Pressure 123/63 120/68 Blood Pressure [Right Arm] Pulse Oximetry 97 98 Oxygen Delivery Method Room Air Oxygen Flow Rate 0 Narrative Exam Narrative: Operative pleasant gentleman in no apparent distress. His eyes are nonicteric. Pupils equal round reactive to light. No swelling of the lids. Oral mucosa is dry no open lesions. Teeth are intact. There are no nodes in the neck supraclavicular areas. Trachea is midline and mobile. Thyroid is not enlarged. No tenderness or masses in the neck or thyroid. His lungs are clear to auscultation with good effort. No rales or rhonchi. Equal percussion. Heart regular rate and rhythm without murmur gallop. No bruit in the neck. Abdomen is scaphoid and soft. He has a easily reducible umbilical hernia with attenuated skin over it. No palpable masses and no tenderness. No guarding. He is alert. Affect is little flat. Speech rate and content are appropriate. It is just that is some of his responses are a bit confused. Objective Imaging CT scan - abdomen: My impression: Patient appears to have a mass or concentric narrowing at the 3rd to 4th portion of the duodenum. There is an obstruction at that point at with dilatation did bowel and stomach prior to it and normal intestine beyond. Patient has a large collecting system of the left kidney vs cysts. Smaller cystic structures on the right kidney. Labs Result Diagrams: 01/28/19 01:30 01/28/19 01:30 Labs: Laboratory Results - last 24 hr 01/28/19 01/28/19 01/28/19 01:30 01:30 01:30 WBC 8.8 RBC 4.53 Hgb 13.8 Hct 40.6 L MCV 89.7 MCH 30.4 MCHC 33.9 RDW 13.5 Plt Count 289 Neut % (Auto) 77.7 H Lymph % (Auto) 7.4 L [place] % (Auto) 14.2 H Eos % (Auto) 0.4 L Baso % (Auto) 0.3 Neut # (Auto) 6800 Lymph # (Auto) 700 L [place] # (Auto) 1200 H Eos # (Auto) 0 Baso # (Auto) 0 Sodium 136 L Potassium 4.0 Chloride 101 Carbon Dioxide 27 BUN 16 Creatinine 1.00 Estimated GFR > 60.0 BUN/Creatinine Ratio 16.0 Glucose 180 H Calcium 9.2 Total Bilirubin 0.4 AST 22 ALT 9 L Alkaline Phosphatase 67 Total Creatine Kinase 54 L CK-MB (CK-2) TNP CK-MB (CK-2) Rel Index TNP Troponin I < 0.012 Total Protein 7.0 Albumin 4.1 Globulin 2.9 Albumin/Globulin Ratio 1.4 Lipase 122 Assessment & Plan Assessment & Plan narrative: 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 Cause unclear at this time. NG tube was placed and has evacuated the stomach well. Will leave it in place for today to keep the stomach evacuated. Will plan an EGD for tomorrow under general anesthesia to protect his airway. Not sure if I will be able to get to this lesion/area of stricture as it is in the very distal 3/4 part of the duodenum just before the ligament of Treitz. It is possible that patient will require major operation or at least a gastrojejunostomy to bypass this narrowing if it is benign. If malignant will be transferred elsewhere as this undertaking is significant. At 83 he may not wish to undergo all that but that discussion will wait till have a diagnosis. I have asked my medicine colleagues to see the patient regarding his Parkinson's and hypertension given his NPO status and the likelihood that he will not be eating. Quality VTE Deep Vein Thrombosis/Pulmonary Embolism Present on Admission: No
--- NOTE | 2019-01-28 13:12 | PC.NURSE ---
Pt is confused but pleasant. He is npo accept ice chips, Secretions in NG tube are thick, giving ice chips in hopes of helping thin out secretions. He has put out over 500cc of bile colored drainage and is at low intermitant suction. NG tube placement correct via xray. Listened with Stethoscope and put air through tube also and gurgle heard. Pt is voiding per urinal, urine is a bit strong smelling. He does not complain of any pain on urination and urine color is dark yellow. Pt denies pain, he has ivf infusing through l.ac iv that is patent.
[2019-01-28] MEDS: SODIUM CHLORIDE 0.45% 1,000 ML 150 ML IV (13:40)
--- NOTE | 2019-01-28 15:10 | CM.DANOTE ---
Discharge Planning/Care Management DCP: assessment: case received, EMR reviewed and met with pt. Introduced self and role. He is found lying in bed, alert, NGT in place draining brownish fluid. Pt is an 83 year old male who admitted to care of [facility]: Dr. Duggan. Hospitalist team is consulting for pt's medical issues including his Parkinson's management. Pt expressed his concerns re this Parkinson's medication. CHRIS Benson confirms that Dr. Birtt is checking into this. Pt is currently unable to swallow anything but ice chips. Dx at this time, per Dr. Duggan is duodenal outlet obstruction with ? of tumor vs stricture. He states that after a full dx is made then the discussion will be around ? of medical management, surgery or perhaps transfer to a higher level of care. P: DCP team will be following. Will plan to discuss also with pt's Violette as more is know. 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 Admission status: INPT: confirmed by UR CHRIS Prado Payer: Medicare and [employer]ARP. Advanced directive, confirm from FAMILY Start: 01/28/19 06:12 Freq: Q24H Status: Active Protocol: Document 01/28/19 13:03 CLL (Rec: 01/28/19 13:12 CLL [id number]) Advance Directive, confirm on record Time 13:11 Person contacted Copy received No Copy received No Advanced directive available on record No CM Discharge Assessment Start: 01/28/19 15:09 Freq: Status: Active Protocol: Document 01/28/19 15:10 ITV (Rec: 01/28/19 15:10 ITV [id number]) Discharge Planning Assessment Advance Directives? Yes Advance Directives on File No History Provided By Patient,Medical Record Prior Living Arrangements House Household Members spouse Whiteboard Updated in Patient Room with Yes name and ext. # of Monotype Setter Review Status In Process
--- NOTE | 2019-01-28 15:28 | PC.NURSE ---
lounge car attendant into see patient today, she did all of her feedings independently today and tolerated flushes well. Pt showered and ambulated in room. She is set to discharge home tomorrow. Her rash to r.side of torso is better as Dr. Duggan ordered cream for her, she states that this has helped. Given benadryl this am for itching from rash, and given percolone and toradol x1 for discomfort. 3 small incisions from surgery all cdi with durmobond. Area's are red around edges, stated that she thought this might be an allergic reaction from tape. Pt is back to bed now and comfortable.
[2019-01-28] MEDS: DEXTROSE 5%-NS W/KCL 20MEQ 1,000 ML 125 MEQ IV (20:58)
--- NOTE | 2019-01-28 23:46 | PC.NURSE ---
Shift summary- Pt with Hx parkinson's, and demonstrating dementia as well. repeating stories over and over, memory loss, forgetful, keeps trying to get out of bed to use urinal, when had been using urinal all day indep in bed. Placed pt on Q-6hr CBG checks r/t NPO status. Dr guillen changed fluids to D5NS+20KCL @ 125 to LAC. NGT in place with 100mL out this shift, HOB up at least 35 degrees. EGD in AM. Pt takes carbidopa/levodopa 25/100mg TID. Dr espinoza and pharmacy called as to check what dosage of carbi/lova per rectum med is available for tomorrow. Family concerned of Parkinson's symptoms worsening with missing this medication over time. Bed alarm on.
[2019-01-29] VITALS (15 sets, daily range): BP systolic 102–156; BP diastolic 58–87; PULSE 59–79; RESP 12–20; TEMP 36.3–37.4; O2SAT 93–99; BMI 25.9
--- NOTE | 2019-01-29 | PATH_ITS ---
[facility] Accession Number: [id number] . 01 Material submitted: . duodenum - DUODENAL MASS AT LIGAMENT OF TREITZ . 01 Clinical history: . ABD PAIN . 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 MRV 02/01/2019 1441 Local . 02 Comment: Immunohistochemical stains for DNA mismatch repair proteins can be performed upon request, if clinically indicated. . As part of routine vice president quality improvement, Dr. Vickers has reviewed this case and agrees with the diagnosis of invasive adenocarcinoma. The finding of invasive adenocarcinoma was reported to Dr. Duggan via his RN Joselin by Dr. Post on 02/01/2019 at 1:00 p.m. . 02 Electronically signed: . Skyler Post MD, PhD, Pathologist NPI- [id number] . 01 Gross description: . DUODENAL MASS AT LIGAMENT OF TREITZ: Received in formalin are 4 fragment(s) of rojas, soft tissue measuring 0.1 x 0.1 x 0.1 cm to 0.3 x 0.2 x 0.2 cm submitted entirely in 1 cassette(s) /DM 01/30/2019 1941 Local . 02 Pathologist provided ICD-10: C17.0 . 02 CPT . 134973 Performed at: 01 [facility] [address] [facility], [place], [place] [id number] MD Zac Valverde MD Phone: [phone] Performed at: 02 [facility] [address] [place], [place] [id number] MD Padmaja Vickers MD Phone: [phone]
[2019-01-29] MEDS: DEXTROSE 5%-NS W/KCL 20MEQ 1,000 ML 125 MEQ IV ×2 (05:31→13:30)
[2019-01-29 05:36] LABS: Add Manual Diff / Slide Review NO; Basophils Absolute Auto 0 /uL (0-100); Basophils Percent Auto 0.6 % (0-2); Eosinophils Absolute Auto 200 /uL (0-450); Eosinophils Percent Auto 2.5 % (2-4); Hematocrit 40.1 % (41-53); Hemoglobin 13.6 g/dL (13.5-17.5); Lymphocytes Absolute Auto 1100 /uL (1100-4500); Lymphocytes Percent Auto 15.1 % (25-40); Mean Corpuscular HGB Conc 33.8 % (30-36); Mean Corpuscular Hemoglobin 30.4 PG (26-34); Monocytes Absolute Auto 1300 /uL (0-900); Monocytes Percent Auto 17.8 % (3-14); Neutrophils Absolute Auto 4700 /uL (1500-7000); Platelet Count 260 X10^3/uL (150-400); Red Blood Cell Count 4.46 X10^6/uL (4.5-5.9); Red Cell Distribution Width 13.8 % (11.6-14.8); White Blood Cell Count 7.3 X10^3/uL (4.5-11.0)
[2019-01-29 05:47] LABS: BUN Creatinine Ratio 8.8 (6-22); Blood Urea Nitrogen 7 mg/dL (9-20); Calcium 8.7 mg/dL (8.4-10.2); Carbon Dioxide 24 mmol/L (22-32); Chloride 108 mmol/L (98-107); Estimated Glomerular Filt Rate > 60.0 mL/min (>60); Glucose 140 mg/dL (80-110); HEMOLYSIS < 15 (0-50); Potassium 3.9 mmol/L (3.4-5.1); Sodium 139 mmol/L (137-145)
--- NOTE | 2019-01-29 09:43 | PC.NURSE ---
AM NOTE - pt awakened for vitals, oriented to self and [place], when asked if he could name hospital, first stated [facility] and then [facility], after informing him of my name he did call me by a different name during assessment, his speech is delayed, can answer questions and converse with his dtr at bedside, oriented to plan for egd sometime today, ng is LIS with light brown fluid in tubing and cannister, bt are hypo, denies abd pain.
[2019-01-29] MEDS: LACTATED RINGERS 1,000 ML 42 ML IV (18:07)
--- NOTE | 2019-01-29 18:14 | PM.PREOP ---
Pre-operative Note Interval Note History & Physical reviewed/Exam performed by Physician: Yes Changes to H&P: Yes H&P completed within 30 days and has changed as indicated here:: Patient much more comfortable now that the gastric contents have been drained from the stomach. He is little confused this evening but his son is with him. He says when he gets tired that happens. Will proceed to an EGD. Discussed this with his son and the possible findings as well.
--- NOTE | 2019-01-29 20:03 | PM.OP.ENDO ---
Operative Date/Time/Diagnoses Date of procedure: 01/29/19 Time of procedure: 20:04 Pre-op diagnosis: Duodenal obstruction Post-op diagnosis: same (Secondary to tumor) Procedure & Clinicians Study performed: EGD with cold biopsy Same procedure as scheduled: Yes Indications: Determine cause of obstruction Surgeon: Jose Duggan Procedure Notes SCOAP/Timeout: Perform Procedure in detail: Patient was placed supine on his bed and underwent general endotracheal anesthesia. A bite block was inserted next to the ET tube and scope was advanced under direct vision into the esophagus. Distal esophagus was mildly inflamed. Stomach insufflated well and had some small gastric fundic appearing polyps. Is otherwise unremarkable. Pyloric channel was patent. The duodenum was normal until I reached the area of the ligament of Treitz. There was a tumor visible nearly obstructing the lumen. Multiple biopsies were taken. There was food in the area that appeared to be vegetable in nature and I remove some of that. The scope was brought back and removed. Patient tolerated the procedure well. Scope withdrawal time: Not applicable Sedation minutes: 0 (General anesthesia) Findings: possible cancer (In the region the ligament of Treitz) Specimen(s): other (Biopsies of the mass) Complications: none Post-procedure Plan for aftercare: Will probably need operative intervention of either resection of this mass with a primary anastomosis if it is distal enough to the pancreas or bypass. I am not sure how good a candidate this patient is for major operation given his Parkinson's, his mental status and his age. Disposition: PACU
[2019-01-29] MEDS: DEXTROSE 5%-0.45% NS 1,000 ML 125 ML IV (21:02)
[2019-01-29] MEDS: CARBIDOPA-LEVODOPA 25/100 TABLET 1 EACH PO (21:47)
[2019-01-30] VITALS (8 sets, daily range): BP systolic 95–135; BP diastolic 60–85; PULSE 55–76; RESP 16–18; TEMP 36.2–36.7; O2SAT 94–99
[2019-01-30] MEDS: DEXTROSE 5%-0.45% NS 1,000 ML 125 ML IV (05:10)
--- NOTE | 2019-01-30 05:51 | PC.NURSE ---
Shift note: Received pt from evening shift. Pt was asleep during assessment but with wake to voice and touch. VSS, on RA, bed alarm on and function, family rooming in. At end of shift, pt woke, is confused and pulling at gown which was pulling on IV tubing complaining that gown was wet. AUTOMATIC LATHE OPERATOR changed pt's gown. Pt is a high fall risk d/t mentation and forgetting limitations.
[2019-01-30 08:06] LABS: Blood Urea Nitrogen 7 mg/dL (9-20); Calcium 9.2 mg/dL (8.4-10.2); Carbon Dioxide 25 mmol/L (22-32); Chloride 106 mmol/L (98-107); Estimated Glomerular Filt Rate > 60.0 mL/min (>60); Glucose 150 mg/dL (80-110); HEMOLYSIS < 15 (0-50); Magnesium 2.1 mg/dL (1.6-2.3); Sodium 140 mmol/L (137-145)
[2019-01-30] MEDS: CARBIDOPA-LEVODOPA 25/100 TABLET 1 EACH PO ×3 (08:48→21:16)
[2019-01-30] MEDS: ATENOLOL 25 MG TABLET PO (08:48)
[2019-01-30] MEDS: ENOXAPARIN 40 MG/0.4 ML SYRINGE SUBCUT (08:48)
--- NOTE | 2019-01-30 09:34 | P.PN_ITS ---
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 Since then he says he has ?felt fine without nausea, bloating, or abdominal pain. Exam Vital Signs (past 8 hours): - 01/30/19 05:47 01/30/19 07:45 01/30/19 08:43 Temperature 98.1 F 97.2 F L Pulse Rate 74 66 66 Respiratory Rate 16 16 Blood Pressure 135/85 95/77 122/71 Pulse Oximetry 95 98 Oxygen Delivery Method Room Air Oxygen Flow Rate 0 Narrative Exam Narrative: GENERAL: Cooperative, comfortable. Appears stated age. Answers questions promptly and appropriately. Vital signs noted. HENT: Normocephalic, atraumatic. Hearing intact. Oral mucosa is pink and moist. EYES: Conjunctiva pink, sclera white, no periorbital swelling. CARDIOVASCULAR: Regular rate. No pedal edema. RESPIRATORY: Normal respiratory rate, breathing comfortably on room air. GASTROINTESTINAL: Abdomen soft, nontender, and non-distended GENITALURINARY: No flank tenderness. MUSCULOSKELETAL: Equal tone and mass bilaterally. SKIN: Warm, dry, soft, appropriate color for ethnicity. No other lesions, rashes, or wounds. NEURO: Alert and Oriented to self and situation. No gross sensory deficits, or cognitive issues. PSYCH: Appropriate affect and mood. Objective Labs Result Diagrams: 01/29/19 05:15 01/30/19 07:42 Labs: Laboratory Results - last 24 hr 01/30/19 07:42 Sodium 140 Potassium 4.0 Chloride 106 Carbon Dioxide 25 BUN 7 L Creatinine 0.70 Estimated GFR > 60.0 BUN/Creatinine Ratio 10.0 Glucose 150 H Calcium 9.2 Magnesium 2.1 Assessment & Plan Assessment and plan (1) Partial small bowel obstruction: Problem details: Patient came in with obstructive symptoms, nausea, vomiting, and a dilated stomach and duodenum with thickening of distal duodenum/proximal ileum on CT scan. Yesterday he had an EGD by Dr. Duggan: Narrowed small intestine was seen at ligament of Treitz, neoplasm biopsied on endoscopy. Currently asymptomatic, and tolerating his own gastric secretions without an NG tube. Denies bloating or nausea. Feels hungry, and would like to eat. I had a lengthy discussion with the patient and his family. We discussed variou s options for managing this, and the fact that we do not know exactly what it is until the biopsy results return. I described the option of doing nothing, possibly stenting the area (although this would require transfer to a hospital where they have gastroenterologists to do this procedure), or surgically resecting the mass or bypassing the obstruction. The patient and his family are interested in considering a transfer for the stenting option. Plan: Clear liquid diet this morning, advanced as tolerated to fulls, do not advance beyond fulls. Contact [facility] for possible transfer for evaluation and consideration of stenting by GI. Current visit: Yes Status: Acute (2) Intestinal neoplasm: Problem details: As above Current visit: Yes Status: Acute (3) Parkinson's disease: Problem details: Patient is at his baseline. He is tolerating his meds. Continue home medications. Current visit: Yes Status: Chronic (4) Essential hypertension with goal blood pressure less than 140/90: Problem details: Patient is at his baseline. Continue home medications. Current visit: Yes Status: Chronic Quality VTE Deep Vein Thrombosis/Pulmonary Embolism Present on Admission: No
--- NOTE | 2019-01-30 10:50 | PT.IIE ---
Current Diagnoses Neoplasm of unspecified behavior of digestive system (01/28/19) Parkinson's disease (01/28/19) Essential (primary) hypertension (01/28/19) Obstruction of duodenum (01/28/19) Partial intestinal obstruction, unspecified as to cause (01/28/19) Surgery Performed Operation Date: 01/29/19 17:00 Actual Procedures p Esophagogastroduodenoscopy with biopsy - Jose Duggan MD Surgical History (Last Reviewed 01/28/19 @ 12:53 by Jose Duggan MD) Hx of malignant neoplasm of prostate (Acute) Medical History (Last Reviewed 01/28/19 @ 12:53 by Jose Duggan MD) Essential hypertension with goal blood pressure less than 140/90 (Chronic 07/04/15) Intestinal neoplasm (Acute) Parkinson's disease (Chronic 07/04/15) Partial small bowel obstruction (Acute) Physical Therapy Inpatient Evaluation/Re-Eval M1 PT/OT-IP Prior Functional Status Start: 01/30/19 11:24 Freq: NEEDED Status: Active Protocol: Document 01/30/19 10:50 AB (Rec: 01/30/19 11:34 AB [id number]) Medical Review Prior Functional Status Medical History Reviewed Yes Communication able to make needs known Mobility and Gait pt stated that he is modified independent with all mobilities and ambulation without AD but occasionally uses a SPC. Son stated that pt should have been using SPC more often but doesn't and has been falling at home. pt stated that within this year, he has 10-12 falls so far. Social History Household Members spouse Living Arrangements House Number of Floors (Floors) One Floor Number of Stairs To Enter/Railing? no steps to enter Home Environment Standard Height Toilet,Walk in Shower Home Equipment Front Wheel Walker,Straight Cane,Hand Held Shower Employment Status Retired Additional Social History Comment pt stated that spouse will not be able to assist him M2 PT-IP Current Condition Start: 01/30/19 11:24 Freq: NEEDED Status: Active Protocol: Document 01/30/19 10:50 AB (Rec: 01/30/19 11:34 AB [id number]) Physical Therapy Current Condition Current Condition Evaluation Date 01/30/19 Treatment Diagnosis SBO; PD; difficulty in walking Onset Date 01/28/19 Precautions Other Precautions falls M3 PT-IP Subjective Start: 01/30/19 11:24 Freq: NEEDED Status: Active Protocol: Document 01/30/19 10:50 AB (Rec: 01/30/19 11:34 AB [id number]) Subjective Physical Therapy Visit Type Type Initial Evaluation Visit Start Time 10:50 Visit Stop Time 11:23 Total Visit Minutes 33 Number of WATERWORKS OPERATOR Visits 0 Physical Therapy Visit Comments Patient Comments pt agreeable to do PT Therapy Pain Assessment Pain Present Pain Present Denied Pain M4 PT-IP Mobility and Gait Start: 01/30/19 11:24 Freq: NEEDED Status: Active Protocol: Document 01/30/19 10:50 AB (Rec: 01/30/19 11:34 AB [id number]) PT-Bed Mobility Assessment Supine to Sit Supine to Sit Standby Assistance Sit to Supine Sit to Supine Standby Assistance PT-Transfer Assessment Sit to and From Stand Sit to and from Stand Contact Guard Assistance,1 Person Assistance Equipment Transfer Assistive Device Gait Belt,Front Wheeled Walker Orthotic/Prosthetic Devices or Brace: No Transfers Transfer Destination Bed Transfer Technique Stand Step Pivot Transfer Ability Level of Assist Contact Guard Assistance Gait Assessment Gait Gait Assistance Required: Contact Guard Assist,Minimum Assistance Distance (Feet) 100 Able to Maintain Weight Bearing Status Yes During Gait Assistive Devices Assistive Device Gait Belt,Front Wheeled Walker Orthotic/Prosthetic Devices or Brace: No Gait Deviations General Gait Pattern Antalgic,Decreased Stride Length,Decreased Feet Clearance,Narrow Based Gait Factors Limiting Gait Function Factors Limiting Gait Function Decreased Activity Tolerance, Incoordination,Poor Balance, Poor Safety Awareness Comments Gait Comments pt initially was dragging RLE and cued to correct and was able advance RLE forward, cued for upright posture and increase EMILY. pt has a tendency to trip on self with pt placing RLE crossing over midline during midswing. PT-Balance Assessment Sitting Balance and Reactions Static Sitting Balance Ability Good Dynamic Sitting Balance Ability Good Standing Balance and Reactions Static Standing Balance Ability Fair Dynamic Standing Balance Ability Fair Device Used FWW M5 PT-IP Objective Assessments Start: 01/30/19 11:24 Freq: NEEDED Status: Active Protocol: Document 01/30/19 10:50 AB (Rec: 01/30/19 11:34 AB [id number]) Orientation Orientation/Cognition Level of Alertness Alert Orientation Name,Place Language Function Ability Hard of Hearing Safety Awareness Decreased Safety Awareness Memory Description Short Term Impaired,Registered Nurse Renal Impaired Gross Range of Motion Lower Extremity ROM Assessment Within Functional Limits Strength Lower Extremity Strength Assessment Within Functional Limits Sensation Assessment Sensation Gross Sensation WNL Muscle Tone Muscle Tone WNL Yes M6 PT-IP Treatment Start: 01/30/19 11:24 Freq: NEEDED Status: Active Protocol: Document 01/30/19 10:50 AB (Rec: 01/30/19 11:34 AB [id number]) Physical Therapy Treatment Education Education Provided Safety M7 PT-IP Assessment and Plan Start: 01/30/19 11:24 Freq: NEEDED Status: Active Protocol: Document 01/30/19 10:50 AB (Rec: 01/30/19 11:34 AB [id number]) PT Summary Assessment and Plan Potential Rehabilitation Potential Good Status of Condition at Evaluation Stable Summary Impairments Pain,ROM,Strength,Balance, Coordination,Sensation,Tone, Cognition,Bed Mobility, Transfers,Gait,Activity Tolerance Assessment Summary pt requiring CGA to min A with mobility using FWW recommending use of FWW at this time for safety. pt plans to go home but stated that spouse will not be able to assist. will conduct caregiver training if appropriate. pt stated that he has been going to [facility] prior to hospitalization. Recommending continued outpt PT for standing balance and ambulation training to decrease falls. Goals Bed Mobility Goal Independent Transfer Goal Independent,Cane,Front Wheeled Walker Gait Goal Independent,Cane,Front Wheel Walker Gait Distance 200 Days to Meet Goals 5 Treatment Plan Physical Therapy Treatment Plan Bed Mobility Training,Transfer Training,Gait Training, Therapeutic Exercise,Balance Retraining,Post Op Education, Discharge Planning,Hot or Cold Pack,Neuromuscular Re-ed, Coordination Retraining,Manual Therapy Recommendations To Nursing Amount of Assist Needed 1 Person Assist Discharge Recommendations PT Discharge Recommendations Home with 01/11 Assist, Outpatient PT
[2019-01-30] MEDS: DEXTROSE 5%-0.45% NS 1,000 ML 90 ML IV (15:04)
--- NOTE | 2019-01-30 15:32 | PC.NURSE ---
Patient tolerated clear liquid diet without pain or nausea, advanced to full liquids for dinner.
--- NOTE | 2019-01-30 20:46 | CM.DPC ---
DCP Continued: patients son and daughter asked to speak to CM/ DC environmental planner about changing DPOA from patients to either himself of his sister. CM brought patient a new DPOA form and brochure with information on how to fill out the form. CM asked patient if he wanted to change his DPOA? Patient stated he thinks it would be best since both him and his are getting older and he isn't sure his is able to make complex medical decisions any longer. Patient also asked about a POLST form. CM explained the difference between the two forms and patient stated he will think about a POLST form but for now he wants to work on changing his DPOA to one of his children not sure which one and wants time to read over the information. Kathie Acosta RN
[2019-01-31] MEDS: DEXTROSE 5%-0.45% NS 1,000 ML 90 ML IV (02:17)
[2019-01-31 03:19] VITALS: BP 119/62; PULSE 58; RESP 20; TEMP 36.7; O2SAT 98
[2019-01-31 07:29] VITALS: BP 124/65; PULSE 55; RESP 18; TEMP 36.6; O2SAT 96
[2019-01-31] MEDS: CARBIDOPA-LEVODOPA 25/100 TABLET 1 EACH PO ×3 (08:44→21:00)
[2019-01-31] MEDS: ATENOLOL 25 MG TABLET PO (08:44)
[2019-01-31] MEDS: ENOXAPARIN 40 MG/0.4 ML SYRINGE SUBCUT (08:45)
--- NOTE | 2019-01-31 09:30 | PT.IPTN ---
Current Diagnoses Neoplasm of unspecified behavior of digestive system (01/28/19) Parkinson's disease (01/28/19) Essential (primary) hypertension (01/28/19) Obstruction of duodenum (01/28/19) Partial intestinal obstruction, unspecified as to cause (01/28/19) Surgery Performed Operation Date: 01/29/19 17:00 Actual Procedures p Esophagogastroduodenoscopy with biopsy - Jose Duggan MD Physical Therapy Treatment Note M2 PT-IP Current Condition Start: 01/30/19 11:24 Freq: NEEDED Status: Active Protocol: Document 01/30/19 10:50 AB (Rec: 01/30/19 11:34 AB [id number]) Physical Therapy Current Condition Current Condition Evaluation Date 01/30/19 Treatment Diagnosis SBO; PD; difficulty in walking Onset Date 01/28/19 Precautions Other Precautions falls M3 PT-IP Subjective Start: 01/30/19 11:24 Freq: NEEDED Status: Active Protocol: Document 01/31/19 09:30 GGD (Rec: 01/31/19 11:39 GGD [email or web address]) Subjective Physical Therapy Visit Type Type Treatment Note Visit Start Time 09:12 Visit Stop Time 09:30 Total Visit Minutes 18 Number of BRIDGE ENGINEER Visits 1 Physical Therapy Visit Comments Patient Comments Pt willing to work with therapy. M4 PT-IP Mobility and Gait Start: 01/30/19 11:24 Freq: NEEDED Status: Active Protocol: Document 01/31/19 09:30 GGD (Rec: 01/31/19 11:39 GGD [id number]) PT-Bed Mobility Assessment Supine to Sit Supine to Sit Standby Assistance Scooting Scooting to Edge of Bed Contact Guard Assistance PT-Transfer Assessment Sit to and From Stand Sit to and from Stand Contact Guard Assistance,1 Person Assistance Equipment Transfer Assistive Device Gait Belt,Front Wheeled Walker Orthotic/Prosthetic Devices or Brace: No Transfers Transfer Destination Chair Transfer Ability Level of Assist Contact Guard Assistance Gait Assessment Gait Gait Assistance Required: Contact Guard Assist,Minimum Assistance Distance (Feet) 140 Able to Maintain Weight Bearing Status Yes During Gait Assistive Devices Assistive Device Gait Belt,Front Wheeled Walker Orthotic/Prosthetic Devices or Brace: No Gait Deviations General Gait Pattern Antalgic,Decreased Stride Length,Decreased Feet Clearance,Narrow Based Gait Factors Limiting Gait Function Factors Limiting Gait Function Decreased Activity Tolerance, Incoordination,Poor Balance, Poor Safety Awareness Comments Gait Comments Pt ambulated with FWW with CGA x 100 feet. Then ambulated with SPC with min A x 40 feet . M5 PT-IP Objective Assessments Start: 01/30/19 11:24 Freq: NEEDED Status: Active Protocol: Document 01/30/19 10:50 AB (Rec: 01/30/19 11:34 AB [id number]) Orientation Orientation/Cognition Level of Alertness Alert Orientation Name,Place Language Function Ability Hard of Hearing Safety Awareness Decreased Safety Awareness Memory Description Short Term Impaired,Residential Impaired Gross Range of Motion Lower Extremity ROM Assessment Within Functional Limits Strength Lower Extremity Strength Assessment Within Functional Limits Sensation Assessment Sensation Gross Sensation WNL Muscle Tone Muscle Tone WNL Yes M6 PT-IP Treatment Start: 01/30/19 11:24 Freq: NEEDED Status: Active Protocol: Document 01/30/19 10:50 AB (Rec: 01/30/19 11:34 AB [id number]) Physical Therapy Treatment Education Education Provided Safety M7 PT-IP Assessment and Plan Start: 01/30/19 11:24 Freq: NEEDED Status: Active Protocol: Document 01/31/19 09:30 GGD (Rec: 01/31/19 11:39 GGD [id number]) PT Summary Assessment and Plan Summary Assessment Summary Pt need cues for safety. He was safe with gait with FWW. He had unsteadiness and LOB with gait with SPC. Pt need cues for step length. Pt and educated on use of FWW vs SPC due to fall risk. Frequency of Treatment Frequency Of Treatment Once a Day Treatment Plan Physical Therapy Treatment Plan Bed Mobility Training,Transfer Training,Gait Training, Therapeutic Exercise,Balance Retraining,Post Op Education, Discharge Planning,Hot or Cold Pack,Neuromuscular Re-ed, Coordination Retraining,Manual Therapy Recommendations To Nursing Amount of Assist Needed 1 Person Assist Discharge Recommendations PT Discharge Recommendations Home with 01/11 Assist,Home Health
--- NOTE | 2019-01-31 10:02 | PC.NURSE ---
Addendum entered by Kelley Donovan R.N. 01/31/19 13:40: into see patient a bit ago and she asked me to call her when pt and his family decide if he is gonna stay here for a couple more days or go home and then be admitted to [facility]. Pt's pathology report will not be back for 2-3 days. It is possible that he may go home and follow the specific diet that Dr. Ramos wants patient to eat as long as family will be their to help him. He may not do this correctly if he is by himself. Both him and his are confused. Family will hopefully be by later. Daughter Darlene called and she will be here this afternoon and be staying with the patient if he does not go home. He sat up in the chair comfortably for a couple of hours and is now back to bed resting. Pt did give himself a shower with the assistance of the feed research technician. continues to be in patients room visiting. Original Note: Pt is Alert but confused x2. He has a chair alarm on and visiting with his at this time. BT x4 abdomen soft and nontender on palpation. He may possibly be transferred to [facility] after biopy results back.
--- NOTE | 2019-01-31 12:48 | PM.PN.1 ---
Subjective Subjective Date Patient Seen: 01/31/19 Time Patient Seen: 12:48 Interval history: No acute events overnight. Pt is tolerating PO full liquid diet. Denies pain, bloating, burping. Exam Vital Signs (past 8 hours): - 01/31/19 07:29 Temperature 97.8 F Pulse Rate 55 L Respiratory Rate 18 Blood Pressure 124/65 Pulse Oximetry 96 Oxygen Delivery Method Room Air Oxygen Flow Rate 0 Narrative Exam Narrative: GENERAL: Cooperative, comfortable. Appears stated age. Answers questions promptly and appropriately. Vital signs noted. HENT: Normocephalic, atraumatic. Hearing intact. Oral mucosa is pink and moist. EYES: Conjunctiva pink, sclera white, no periorbital swelling. CARDIOVASCULAR: Regular rate. No pedal edema. RESPIRATORY: Normal respiratory rate, breathing comfortably on room air. GASTROINTESTINAL: Abdomen soft, nontender, and non-distended GENITALURINARY: No flank tenderness. MUSCULOSKELETAL: Equal tone and mass bilaterally. SKIN: Warm, dry, soft, appropriate color for ethnicity. No other lesions, rashes, or wounds. NEURO: Alert and Oriented to self. Somewhat confused about his medical condition. No gross sensory deficit. PSYCH: Appropriate affect and mood. Objective Labs Result Diagrams: 01/29/19 05:15 01/30/19 07:42 Assessment & Plan Assessment and plan (1) Intestinal neoplasm: Problem details: As above Current visit: Yes Status: Acute (2) Parkinson's disease: Problem details: Patient is at his baseline. He is tolerating his meds. Continue home medications. Current visit: Yes Status: Chronic (3) Essential hypertension with goal blood pressure less than 140/90: Problem details: Patient is at his baseline. Continue home medications. Current visit: Yes Status: Chronic (4) Partial small bowel obstruction: Problem details: Patient came in with obstructive symptoms, nausea, vomiting, and a dilated stomach and duodenum with thickening of distal duodenum/proximal ileum on CT scan. EGD by Dr. 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 Yesterday he tolerated clear liquid and full liquid diet with no problem. We had a discussion with the patient and his family regarding transfer to [facility] for possible GI stent placement. However, he can not be transferred until his pathology results return. Today the patient wants to know if he can just go home and wait for the pathology result there. The patient is somewhat confused at baseline, and his family will need to feel comfortable supervising his PO intake to insure he doesn't eat any solid food. They will have a discussion and let me know their decision later today. Plan: Full and clear liquid diet as tolerated DC IV fluids Follow up discussion after patient's family discuss their plans Dispo pending patient and family can manage his diet at home Current visit: Yes Status: Acute Quality VTE Deep Vein Thrombosis/Pulmonary Embolism Present on Admission: No
[2019-01-31 13:00] VITALS: BP 124/67; PULSE 57; RESP 20; TEMP 36.4; O2SAT 96
--- NOTE | 2019-01-31 15:41 | CM.DPC ---
Addendum entered by NIKO Argueta 01/31/19 16:15: ADD: Met with Surgeon who is agreeable to HH and signed F2F and discussed Dtr/family concerns with pt d/c home tonight. SW called Dtr Lorie [phone] back and Dtr states she plans to arrive tonight and stay with pt's spouse (her mother) tonight and will be bedside in the morning and plan is for Dtr to [place] both [place] her to stay and between Dtr and son they will help assist pt and spouse with follow up at [facility] and outpt resources at d/c. SW updated Surgeon who is agreeable with d/c plan for the morning and Dtr states that she and spouse will be bedside early for transport and discharge instructions. Plan: SW to follow in the morning to fax signed F2F to [facility] and update that pt may not be going straight home but to Dtr's house and possible follow up with family after d/c to determine start of care date? SW to follow for pt d/c to Dtr's care in the morning. NIKO Argueta Original Note: DCP Cont: Per auditing specialist, pt is no longer requiring a hospital transfer and waiting for cultures to determine next procedure needs and results likely not back for a few days and can be done in the outpt setting. Per [facility] RN, Surgeon plans to be bedside this evening towards likely plan of discharge home this evening after meeting bedside with pt and spouse to confirm stable for discharge. Per PT, recommending safe d/c home with either outpt PT or HH and family requesting HH would be a better fit for now. JORGE met bedside with pt and spouse and explained role and discussed HH and they are agreeable and request [facility] as they live in [place]. SW called [facility] and made new referral and they can accept with open date of Tuesday02/02/19. TRIXIE Carrillo faxed clinicals for review. SW provided pt and spouse with the [facility] contact information on the HH Choice List and spouse requested SW talk to her Dtr Lorie on the phone and Lorie expressed her concerns with pt discharging this evening and SW discussed HH services and frequency and she is appreciative and states that between herself and 2 other siblings they are trying to plan for at least one of them staying with pt and spouse at d/c for now for additional assist as both pt and spouse seem overwhelmed and confused. Dtr confirmed that they still do not feel SNF needed at this time and SW discussed that Surgeon would be bedside this evening and if pt is discharged and spouse and family feel pt is not medically stable for d/c then they could contest Discharge through Medicare if needed but that MD would need to justify a medical reason to keep pt in the hospital that does not include family not being available and Dtr expressed understanding and was very appreciative of all the information. SW placed F2F on chart and updated RN to request MD to sign if agreeable with HH at d/c since MD will be around after SW shift ends. Plan: SW to follow closely in the morning to see if pt discharges this evening and to fax signed F2F, orders, and d/c summary to [facility] when available. NIKO Argueta
[2019-01-31 15:45] VITALS: BP 141/75; PULSE 61; RESP 20; TEMP 36.7; O2SAT 95
[2019-01-31 16:35] VITALS: BMI 25.9
--- NOTE | 2019-01-31 17:31 | DIET.PN ---
Dietary Progress Note Assessment: 83y M referred to nutrition for full liquid diet plan meant to meet his needs until transfer of care to [facility] to address partial SBO. HT: 182.8cm WT: 86.6kg Pt wt recorded as 89kg 6 mo ago (4% wt loss in 6 mo, not a concern at this point.) BMI: 25.9 Interventions: Educated pt, his Violette, and neighbor on importance of maintaining a full liquid diet as to not cause total blockage of small intestine. Used handouts to discuss appropriate foods to consume. If pt does nothing else, he can consume 5 Ensure Enlives/d to provide 1800 kcal and 100g PRO. Provided coupons for Ensure Enlive. Diet Order: Full Liquid EER: 2200kcal, 110g PRO, 2.5 L fluids Monitoring/Evaluations: Pt will need further support upon d/c, I have included the appropriate handouts in dc packet, please re-educate when latanya eMlo daughter is present.
[2019-01-31 19:45] VITALS: BP 114/60; PULSE 56; RESP 18; TEMP 36.6; O2SAT 97
[2019-01-31 23:20] VITALS: BP 95/54; PULSE 64; RESP 16; TEMP 37.1; O2SAT 98
[2019-02-01 04:42] VITALS: BP 119/64; PULSE 62; RESP 16; TEMP 37.1; O2SAT 92
[2019-02-01 08:53] VITALS: BP 102/71; PULSE 87; RESP 16; TEMP 36.8; O2SAT 94
[2019-02-01] MEDS: CARBIDOPA-LEVODOPA 25/100 TABLET 1 EACH PO (08:55)
[2019-02-01] MEDS: ENOXAPARIN 40 MG/0.4 ML SYRINGE SUBCUT (08:56)
[2019-02-01] MEDS: ATENOLOL 25 MG TABLET PO (08:56)
--- NOTE | 2019-02-01 09:33 | PM.PN.1 ---
Subjective Subjective Date Patient Seen: 02/01/19 Time Patient Seen: 09:33 Interval history: Pt continues to tolerate full liquid diet. Denies nausea/vomiting. Exam Vital Signs (past 8 hours): - 02/01/19 04:42 02/01/19 08:53 Temperature 98.8 F 98.3 F Pulse Rate 62 87 Respiratory Rate 16 16 Blood Pressure 119/64 102/71 Pulse Oximetry 92 94 Oxygen Delivery Method Room Air Oxygen Flow Rate 0 Narrative Exam Narrative: GENERAL: Cooperative, comfortable. Appears stated age. Answers questions promptly and appropriately. Vital signs noted. HENT: Normocephalic, atraumatic. Hearing intact. Oral mucosa is pink and moist. EYES: Conjunctiva pink, sclera white, no periorbital swelling. CARDIOVASCULAR: Regular rate. No pedal edema. RESPIRATORY: Normal respiratory rate, breathing comfortably on room air. GASTROINTESTINAL: Abdomen soft, nontender, and non-distended GENITALURINARY: No flank tenderness. MUSCULOSKELETAL: Equal tone and mass bilaterally. SKIN: Warm, dry, soft, appropriate color for ethnicity. No other lesions, rashes, or wounds. NEURO: Alert and Oriented to self. Somewhat confused about his medical condition. No gross sensory deficit. PSYCH: Appropriate affect and mood. Objective Labs Result Diagrams: 01/29/19 05:15 01/30/19 07:42 Assessment & Plan Assessment and plan (1) Intestinal neoplasm: Problem details: As above Current visit: Yes Status: Acute (2) Parkinson's disease: Problem details: Patient is at his baseline. He is tolerating his meds. Continue home medications. Current visit: Yes Status: Chronic (3) Partial small bowel obstruction: Problem details: Patient came in with obstructive symptoms, nausea, vomiting, and a dilated stomach and duodenum with thickening of distal duodenum/proximal ileum on CT scan. EGD by Dr. 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 He is tolerating clear liquid and full liquid diet with no problem. We had a discussion with the patient and his family regarding transfer to [facility] for possible GI stent placement. However, he can not be transferred until his pathology results return, which is likely to be Tuesday. As he is tolerating a diet he can likely wait for his pathology results in a nonacute setting. However, the patient has dementia and is somewhat confused at baseline. It has now come to light over the last day that his also has signs of dementia and has been unable to choose appropriate food items for him in keeping with his full liquid diet. Apparently she attempted to feed him almonds when he was advanced from clear liquid to full liquid diet. This was intercepted by his daughter. In further discussions with his daughter, I have found that this is not new, but that they have been managing at home with a relatively simple lifestyle and intermittent family supervision. Now that his situation is more complex, it is clear that his is not going to be an adequate or safe stock control supervisor for him at home. He has been in the hospital for 5 days, and is somewhat weekend, he will have greater difficulty getting in and out of bed and up and down stairs. In addition neither the patient nor his are reliable decision makers regarding avoidance of solid foods, in keeping with his full liquid diet. If he does eat solid food it will plug the very narrow opening in his intestine and he will end up back in the ER very quickly. With his Parkinson's history he has a high risk of aspiration if he does vomit. This should be avoided at all costs. The patient needs to be placed in a setting where he can be supervised 24 hours a day to ensure that he avoids eating any solid food, and that he is able to safely ambulate with appropriate supervision and assistance as needed. Unfortunately his is not able to provide adequate supervision for either safe ambulation or for choosing appropriate safe dietary options. I recommend that care management and physical therapy review his case, and consider either 24 hour in-home supervision the by someone other than his , or placing him in an inpatient facility where he can receive 24 hour supervision for both safe ambulation and appropriate dietary choices. Finally, the patient's daughter let me know this morning that medical [id number] was signed by the patient and his 2 days ago, which gave power medical decision making to another family member. I believe it was the patient's son who is now medical POA. The daughter is attempting to get a copy of this document. I asked her to give a copy of that document to the memory care program director. Plan: Get a copy of medical POA document, and give to memory care program director Full and clear liquid diet as tolerated Please hold discharge until appropriate disposition can be established. Dispo planning for either 24 hour in-home care or [facility] facility where the patient can be fully supervised for all dietary choices to prevent eating solid food and make sure he get adequate nutrition through liquid diet, to prevent and avoid aspiration, and to prevent avoid falls by having supervised ambulation by an appropriate care provider. Current visit: Yes Status: Acute (4) Confusion: Problem details: As above Current visit: Yes Status: Acute (5) Dementia: Problem details: As above Current visit: Yes Status: Acute Quality VTE Deep Vein Thrombosis/Pulmonary Embolism Present on Admission: No
--- NOTE | 2019-02-01 10:52 | PT.IPTN ---
Note completed PT student Trini Snyder. I certify that I reviewed this documentation and I am involved with this pt's tx. Current Diagnoses Neoplasm of unspecified behavior of digestive system (01/28/19) Unspecified dementia without behavioral disturbance (01/28/19) Parkinson's disease (01/28/19) Essential (primary) hypertension (01/28/19) Obstruction of duodenum (01/28/19) Partial intestinal obstruction, unspecified as to cause (01/28/19) Disorientation, unspecified (01/28/19) Surgery Performed Operation Date: 01/29/19 17:00 Actual Procedures p Esophagogastroduodenoscopy with biopsy - Jose Duggan MD Physical Therapy Treatment Note M2 PT-IP Current Condition Start: 01/30/19 11:24 Freq: NEEDED Status: Active Protocol: Document 01/30/19 10:50 AB (Rec: 01/30/19 11:34 AB [id number]) Physical Therapy Current Condition Current Condition Evaluation Date 01/30/19 Treatment Diagnosis SBO; PD; difficulty in walking Onset Date 01/28/19 Precautions Other Precautions falls M3 PT-IP Subjective Start: 01/30/19 11:24 Freq: NEEDED Status: Active Protocol: Document 02/01/19 10:52 MT (Rec: 02/01/19 12:52 MT [id number]) Subjective Physical Therapy Visit Type Type Treatment Note Visit Start Time 10:52 Visit Stop Time 11:08 Total Visit Minutes 16 Number of PRODUCT SAFETY ASSOCIATE Visits 0 Physical Therapy Visit Comments Patient Comments Pt was agreeable to aprticipate in physical therapy today M4 PT-IP Mobility and Gait Start: 01/30/19 11:24 Freq: NEEDED Status: Active Protocol: Document 02/01/19 10:52 MT (Rec: 02/01/19 13:08 MT [id number]) PT-Transfer Assessment Sit to and From Stand Sit to and from Stand Contact Guard Assistance,1 Person Assistance Equipment Transfer Assistive Device Gait Belt,Front Wheeled Walker Orthotic/Prosthetic Devices or Brace: No Transfers Transfer Destination Chair Transfer Ability Level of Assist Contact Guard Assistance Comments Mobility Comments Pt requires CGA for most bed mobility and trasnfers, requiring constant cueing for safety. He demonstrates some instability during turning for trasnfers, and requires cueing to maintain a WBOS during transfer. Gait Assessment Gait Gait Assistance Required: Contact Guard Assist,Minimum Assistance,1 Person Assist Distance (Feet) 160 Able to Maintain Weight Bearing Status Yes During Gait Assistive Devices Assistive Device Gait Belt,Front Wheeled Walker Orthotic/Prosthetic Devices or Brace: No Gait Deviations General Gait Pattern Antalgic,Decreased Stride Length,Decreased Feet Clearance,Narrow Based Gait Factors Limiting Gait Function Factors Limiting Gait Function Decreased Activity Tolerance, Incoordination,Poor Balance, Poor Safety Awareness Comments Gait Comments Pt ambulated 160 feet with FWW and CGA-Ian. Pt experienced 2-3 episodes with LOB where he required Ian to maintain his balance due to having a NBOS, especially in turning activities. Provide max cueing for pt to remind him to take larger and wider steps with his R LE PT-Balance Assessment Sitting Balance and Reactions Static Sitting Balance Ability Good Dynamic Sitting Balance Ability Good Standing Balance and Reactions Static Standing Balance Ability Fair Dynamic Standing Balance Ability Fair Device Used FWW M5 PT-IP Objective Assessments Start: 01/30/19 11:24 Freq: NEEDED Status: Active Protocol: Document 01/30/19 10:50 AB (Rec: 01/30/19 11:34 AB [id number]) Orientation Orientation/Cognition Level of Alertness Alert Orientation Name,Place Language Function Ability Hard of Hearing Safety Awareness Decreased Safety Awareness Memory Description Short Term 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,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 Gross Range of Motion Lower Extremity ROM Assessment Within Functional Limits Strength Lower Extremity Strength Assessment Within Functional Limits Sensation Assessment Sensation Gross Sensation WNL Muscle Tone Muscle Tone WNL Yes M6 PT-IP Treatment Start: 01/30/19 11:24 Freq: NEEDED Status: Active Protocol: Document 02/01/19 10:52 MT (Rec: 02/01/19 13:08 MT [id number]) Physical Therapy Treatment Education Education Provided Safety M7 PT-IP Assessment and Plan Start: 01/30/19 11:24 Freq: NEEDED Status: Active Protocol: Document 02/01/19 10:52 MT (Rec: 02/01/19 13:08 MT [id number]) PT Summary Assessment and Plan Summary Impairments Pain,ROM,Strength,Balance, Coordination,Sensation,Tone, Cognition,Bed Mobility, Transfers,Gait,Activity Tolerance Progress Towards Goals Slow Progress due to Medical Issues,Slow Progress - Other Assessment Summary Pt is CGA for most of his bed mobility and transfers. He demonstrates unsteadiness on his feet during ambulation and requires Ian-CGA in order to maintain his balance, especially during turning maneuvers with ambulation and trasnfers. he requires continuous cueing to take bigger and wider steps with his R foot in order to widen his base of support and prevent LOB. Pt's is unable to provide the adequate safe assistance to the patient at home due to dementia (as reported by the son). Pt demonstrates lack of carryover with new learning for safety and decreased safety awareness. Due to pt's need for continued care and frequent supervision for safety, he would benefit from discharge to a SNF. Discussed this plan with the rn home care. Goals Bed Mobility Goal Independent Transfer Goal Independent,Cane,Front Wheeled Walker Gait Goal Independent,Cane,Front Wheel Walker Gait Distance 200 Days to Meet Goals 5 Frequency of Treatment Frequency Of Treatment Once a Day Treatment Plan Physical Therapy Treatment Plan Bed Mobility Training,Transfer Training,Gait Training, Therapeutic Exercise,Balance Retraining,Post Op Education, Discharge Planning,Hot or Cold Pack,Neuromuscular Re-ed, Coordination Retraining,Manual Therapy Recommendations To Nursing Amount of Assist Needed 1 Person Assist Discharge Recommendations PT Discharge Recommendations SNF Rehab
--- NOTE | 2019-02-01 11:40 | CM.DPC ---
DCP Continues: EMR reviewed: Spoke with patients family this AM and patients family are not comfortable letting the patient D/C home with HH and the patients due to her being unable to take care of the patients health needs. Family requesting patient go to SNF at d/C today. CM explained to family that going to SNF now would be difficult since patient has been planning to go to home since he arrived. patients daughter Lorie was present at conversation. CM recieved a phone call from [facility] with [facility] [phone] about possible SNF placement options in [place] for patient. CM spoke with pt Daughter Lorie at [phone] about local SNF options as well. pt's daughter and stated they would like [facility] or [facility]. [facility] completed CM called and sent clinicals to [facility] includes the [facility], [facility] and [facility] to review for possible placement. CM spoke with Surgeon Dr. Ramos about that patients situation and MD agrees that the patient could use SNF since their is no one at home to help with patient care. PT evaluation done and they are also recommending SNF placement. CM called September at [facility] and they reviewed patients chart and accepted patient to [facility] at 1pm today. Patient and family were notified of placement at [facility]. Patient has a f/u appt schedueld with Dr. Sanchez at 02/07/2019 at 2:45pm. CM asked Lorena to send d/c paperwork to [facility] and finish d/c packet. Kathie Acosta RN
--- NOTE | 2019-02-01 11:40 | PC.NURSE ---
Assess- Pt is doing well this morning and will be discharging from the hospital over to [facility] at 1300. His daughter and his are both present here. will be up to sign final discharge paperwork and med list soon.
--- NOTE | 2019-02-01 12:11 | PM.DS.1 ---
History of Present Illness History of Present Illness Chief complaint: Abd Pain Narrative: Patient was seen at 7:00 a.m. on 01/28/2019. He is a gentleman who has some baseline dementia and is somewhat confused at baseline. He came into the ER with complaint of nausea and vomiting. CT scan in the ER showed thickening of the distal duodenum/ligament of Treitz area of the small bowel. He had an EGD on Tuesday by Dr. Duggan which showed a 5th a neoplastic appearing thickening of the small bowel at the ligament of Treitz. This was biopsied at that time. Discharge Providers Provider Date of admission: 01/28/19 04:35 Discharge Date: 02/01/19 Primary care physician: Manoj Sanchez MD Consults: 01/29/19 20:25 Consult to Discharge Planning Routine Comment: 01/30/19 09:43 Consult to Physical Therapy Evaluate & Treat Comment: h/o parkinsons, unsteady gait, needs ambulation Physician Instructions: Evaluate and Treat 01/31/19 16:09 Consult to Dietitian, Adult Urgent Comment: needs instruction on liquid diet Reason For Exam: nearly obstruction intestinal neoplasm Discharge provider: Laura Ramos MD Summary Hospital Course Discharge Diagnosis: Intestinal neoplasm, pathology pending Hospital Course: After his EGD on Tuesday the , the patient was gradually transitioned to a clear liquid diet the following day. He was gradually advanced to full liquid diet, as he continued to tolerate the diet. Physical therapy worked with him to try and keep him ambulating during this hospital stay. He continued to tolerate a liquid diet. We found that his pathology result would not be back until Tuesday. As he is tolerating a diet he does not need to stay in the acute hospital setting. Status at Discharge Cognitive/behavioral status at discharge: at baseline, confused Functional status at discharge: uses cane/walker Overall status at discharge: patient is not back to baseline Time Spent with Patient Time spent: Greater than 30 minutes Exam Vital Signs (past 8 hours): - 02/01/19 04:42 02/01/19 08:53 Temperature 98.8 F 98.3 F Pulse Rate 62 87 Respiratory Rate 16 16 Blood Pressure 119/64 102/71 Pulse Oximetry 92 94 Oxygen Delivery Method Room Air Oxygen Flow Rate 0 Narrative Exam Narrative: GENERAL: Cooperative, comfortable. Appears stated age. Answers questions promptly and appropriately. Vital signs noted. HENT: Normocephalic, atraumatic. Hearing intact. Oral mucosa is pink and moist. EYES: Conjunctiva pink, sclera white, no periorbital swelling. CARDIOVASCULAR: Regular rate. No pedal edema. RESPIRATORY: Normal respiratory rate, breathing comfortably on room air. GASTROINTESTINAL: Abdomen soft, nontender, and non-distended GENITALURINARY: No flank tenderness. MUSCULOSKELETAL: Equal tone and mass bilaterally. SKIN: Warm, dry, soft, appropriate color for ethnicity. No other lesions, rashes, or wounds. NEURO: Alert and Oriented to self. Somewhat confused about his medical condition. No gross sensory deficit. PSYCH: Appropriate affect and mood. Objective Labs Result Diagrams: 01/29/19 05:15 01/30/19 07:42 Discharge Plan Discharge Plan Patient Disposition: SNF Transfer to: [facility] Discharge comment: Recommendations for nursing facility care: Liquid diet. No solids. The patient may have things that are of pudding or pureed consistency, but make sure to drink plenty of water with any thicker substances that you eat. DO NOT ALLOW ANY SOLID FOOD. Make an appointment to see Dr. Soto in his office next week. At that time, he will review your pathology results and help you make a plan for the next steps in your treatment. If you have nausea and vomiting, return to the ER immediately. You should include supplements such as Ensure, Boost, or other liquid nutritional supplements of your choice. Discharge Med Rec/Prescriptions Prescriptions: Continued carbidopa-levodopa 25 MG/100 MG tablet,disintegrating 1 tab PO TID Qty: 0 RF: 0 hyoscyamine sulfate 0.125 MG tablet,disintegrating 0.125 mg Sublingual Q DAY PRN (Reason: Sialorrhea) Qty: 0 RF: 0 atenolol 25 mg tablet 25 mg PO Q DAY Qty: 30 RF: 0 Follow up/Referrals: Manoj Sanchez MD [Primary Care Provider] - Jose Duggan MD [Physician] - 02/07/19 2:45 pm (appt:02/07 @ 2:[address] duggan please arrive 16 minutes to your scheduled appointment ) Discharge Health Status Brief summary of current health status: The patient is tolerating a full liquid diet. His diet cannot be advanced beyond this point. He cannot eat solid food under any circumstances. His mental status is approximately at his baseline, which is a moderate amount of confusion. He requires close supervision for dietary choices and ambulation. His ambulation status is not quite is his baseline, which is requiring a walker and close supervision. His Parkinson's treatment and hypertension treatment have been continued throughout his hospital stay and should be maintained on his home medications. Provider Discharge Instructions Diet: Full Liquid Liquid consistency: Normal/Thin Diet comment: NO SOLID FOOD. LIQUID ONLY. Special Rehabilitation Services Reason for rehabilitation: Recovery r/t decondition Rehab type: Physical therapy Visit Report/Discharge Packet Stand Alone Forms: EGD Result: Isld Surg Visit Report Forms: Patient Portal/API, Stroke Signs & Symptoms Discharge Data Primary Care Provider: Manoj Sanchez VTE Deep Vein Thrombosis/Pulmonary Embolism Present on Admission: No
--- NOTE | 2019-02-01 13:21 | CM.DPC ---
DCP continues: Patients Elder direct care professional contacted CM and expressed concerns with sending patient to [facility] and expressed that the family would feel more comfortable if the patient could go to a facility in [place]. Cm explained that patient was currently d/c and had everything set up to transfer to [facility] at 1pm and that if patient choose to stay that they could have a bill. Patients daughter Lorie expressed understanding and CM will attept to find other placement. CM called [facility] spoke to September and put fruit picker off an hour until 2pm. CM called Prov Rod at [phone] and sent clinicals again for their review. CM also spoke with [facility] at [phone] and they are reviewing clinicals as well. Recieved a call back from [facility] they will accept patient. CM told patients RN/ Nurse about the change and asked michele to fax d.c orders and [facility] over to review. CM called Destiney at [facility] and canceled placement and transport. CM spoke with family and arranged for them to transport patient to [facility] in [place], Family stated understanding and agreed to transport. Nurse Report number is [phone] nurse harjinder Vasquez information given to patients CHRIS. Kathie Acosta RN.
== END 2019-02-01 13:45 | DRG 375 ==
LOC: ED 04:14 → AC 04:36
PROVIDERS: Nurse Practitioner Family; Surgery; Admitting Provider Specialist; Emergency Provider Emergency Medicine; PCP Family Medicine; Visit Provider Specialist
PROC: 0DJ08ZZ Inspection of Upper Intestinal Tract, Via Natural or Artificial Opening Endoscopic (ICD-10-PCS; CPT 43235; principal; 2019-01-29 17:00)
DX: C17.0 Malignant neoplasm of duodenum (principal); F05 Delirium due to known physiological condition; G20 Parkinson's disease; I10 Essential (primary) hypertension; F02.80 Dementia in other diseases classified elsewhere, unspecified severity, without behavioral disturbance, psychotic disturbance, mood disturbance, and anxiety; F03.90 Unspecified dementia, unspecified severity, without behavioral disturbance, psychotic disturbance, mood disturbance, and anxiety
CPT/HCPCS: 36415; 43239; 71045; 74022; 74177; 80048; 80053; 81003; 82550; 82962; 83690; 83735; 84484; 85025; 96361; 96374; 96375; 97116; 97161; 99231; 99232; 99238; 99284; C9113; J0330; J1650; J2405; J2704; J7050; Q9967

== ENCOUNTER 2019-08-03 15:21 | Emergency (ER) | payer MEDICARE, SELFPAY ==
[2019-06-11 10:43] VITALS: BMI 26.9
[2019-08-03 15:30] VITALS: BP 109/53; PULSE 69; RESP 18; TEMP 36.4; O2SAT 97; BMI 24.1
--- NOTE | 2019-08-03 15:32 | DI.RAD.S_ITS ---
PROCEDURE: XR KNEE RT 3V INDICATIONS: fall, right knee pain and swelling TECHNIQUE: 3 views of the knee were acquired. COMPARISON: None. FINDINGS: Bones: No fractures or dislocations. No suspicious bony lesions. Moderate tricompartmental osteoarthritis. Soft tissues: Large suprapatellar joint effusion. No suspicious soft tissue calcifications. IMPRESSION: No fracture. No acute osseous lesion. If symptoms and/or clinical suspicion for pathology persists, further assessment with repeat radiographs (7-10 days) or advanced imaging (e.g. CT, MRI or bone scan) may be helpful. Dictated by: Alona Khanna MD, PhD on 08/03/2019 at 16:06 Approved by: Alona Khanna MD, PhD on 08/03/2019 at 16:07
--- NOTE | 2019-08-03 15:36 | ED.LOWEXIN ---
HPI - Extremity Injury (Lower) <JARRED Willams - Last Filed: 08/03/19 21:12> General Chief Complaint: Extremity Injury, Lower Stated Complaint: FALL UNABLE TO STRAIGHTEN RIGHT LEG Time Seen by Provider: 08/03/19 15:27 Source: patient Mode of arrival: Ambulatory History of Present Illness HPI Narrative: 83yo male and hypertension, intestinal neoplasm, presents to the ED reports of right-sided knee pain after fall at home yesterday. He states to tripped and fell on his hands and knees, reports right knee pain and swelling that is worse with weight-bearing. Patient states he has is a cane and/or walker at baseline for ambulation. He denies hitting his head. at the denies any other symptoms such as cough, shortness of breath, fevers, chills, nausea, vomiting, diarrhea, dizziness, altered mental status, or any other concerns. Fall was witnessed by family who states that he did trip on his foot, also confer N/C did not hit his head. Related Data Home Medications Medication Instructions Recorded Confirmed carbidopa-levodopa 1 tab PO TID #0 07/18/17 06/11/19 carboxymethylcellulose sodium OPHTHALMIC (EYE) 05/14/19 06/11/19 cholecalciferol (vitamin D3) PO 05/14/19 06/11/19 entacapone 200 mg tablet 200 mg PO TID 05/14/19 06/11/19 Previous Rx's Medication Instructions Recorded atenolol 25 mg tablet 25 mg PO Q DAY #90 tab 06/11/19 Allergies Allergy/AdvReac Type Severity Reaction Status Date / Time No Known Drug Allergies Allergy Verified 06/20/19 10:31 Review of Systems <JARRED Willams - Last Filed: 08/03/19 21:12> Review of Systems Narrative: REVIEW OF SYSTEMS: GENERAL: Denies fever or chills. HENT: No head trauma. EYES: No vision changes. CARDIOVASCULAR: No chest pain or syncope. RESPIRATORY: No shortness of breath or cough. GASTROINTESTINAL: No nausea vomiting. MUSCULOSKELETAL: Complains of right knee pain, see HPI. INTEGUMENTARY: No rash, lesions, or pruritus. NEURO: No numbness, tingling. PYSCH: No change in behavior. Patient History <JARRED Willams - Last Filed: 08/03/19 21:12> Medical History Essential hypertension with goal blood pressure less than 140/90 (Chronic 07/04/15) Intestinal neoplasm (Acute) Parkinson's disease (Chronic 07/04/15) Partial small bowel obstruction (Acute) Pulmonary nodule (Acute) Surgical History Hx of malignant neoplasm of prostate (Acute) Social History household members: spouse Smoking Status: Never smoker Smoking Status: Never smoker alcohol intake frequency: a few times a week Substance Use Type: does not use Exam <JARRED Willams - Last Filed: 08/03/19 21:12> Initial Vital Signs Initial Vital Signs: Vital Signs Temperature 97.5 F L 08/03/19 15:30 Pulse Rate 69 08/03/19 15:30 Respiratory Rate 18 08/03/19 15:30 Blood Pressure 109/53 L 08/03/19 15:30 Pulse Oximetry 97 08/03/19 15:30 PHYSICAL EXAMINATION: GENERAL: Well groomed, alert, and cooperative. Answers questions promptly and appropriately. Vital signs noted. HENT: Normocephalic, atraumatic. EYES: Symmetrical, sclera white, no periorbital swelling. RESPIRATORY: Normal respiratory rate, trachea midline, airway patent. No stridor, nasal flaring or accessory muscle use. MUSCULOSKELETAL: Mild to moderate swelling noted to right knee, swelling noted to medial and lateral aspects of knee. Tenderness with palpation of patella. Patient has flexion to 90?, no further flexion due to swelling and pain. Patient has full extension. No erythema or ecchymosis noted. Equal tone and mass bilaterally. No spinal tenderness or deformities. EXTREMITIES: CMS intact. Posterior tibialis pulse 2+ and equal bilaterally. SKIN: Warm, dry, soft, appropriate color for ethnicity. No lesions, rashes, or wounds. NEURO: Alert and awake. No sensory deficits. PSYCH: Appropriate affect and mood. <Brandon Garcia MD - Last Filed: 08/04/19 07:47> Initial Vital Signs Initial Vital Signs: Vital Signs Temperature 97.5 F L 08/03/19 15:30 Pulse Rate 69 08/03/19 15:30 Respiratory Rate 18 08/03/19 15:30 Blood Pressure 109/53 L 08/03/19 15:30 Pulse Oximetry 97 08/03/19 15:30 Course <JARRED Willams - Last Filed: 08/03/19 21:12> Course Course Narrative: After application of Richard wrap and administration of Tylenol, patient was able to ambulate without significant pain with cane without additional assistance. Patient requesting discharge. Orders Ordered: Discontinued Medications Acetaminophen (Tylenol) 650 mg PO NOW ONE Stop: 08/03/19 16:28 Last Admin: 08/03/19 16:48 Dose: 650 mg Documented by: ANDREI Vital Signs Vital signs: Vital Signs - 8 hr 08/03/19 15:30 08/03/19 17:34 Temperature 97.5 F L Pulse Rate 69 61 Respiratory Rate 18 Blood Pressure 109/53 L Blood Pressure [Right Arm] 109/60 Pulse Oximetry 97 100 <Brandon Garcia MD - Last Filed: 08/04/19 07:47> Orders Ordered: Discontinued Medications Acetaminophen (Tylenol) 650 mg PO NOW ONE Stop: 08/03/19 16:28 Last Admin: 08/03/19 16:48 Dose: 650 mg Documented by: ANDREI Vital Signs Vital signs: Vital Signs - 8 hr 08/03/19 15:30 08/03/19 17:34 Temperature 97.5 F L Pulse Rate 69 61 Respiratory Rate 18 Blood Pressure 109/53 L Blood Pressure [Right Arm] 109/60 Pulse Oximetry 97 100 MDM - Extremity Injury (Lower) <JARRED Willams - Last Filed: 08/03/19 21:12> Medical Records Attestation: I reviewed the patient's medical records. Lab Data Attestation: I reviewed the patient's lab results. Imaging Data Extremity x-ray #1: Radiologist's Impression: [address] [address] XRay Report Signed Patient: Brandon Singh [facility]#: [id number] : 6Acct:[id number] Age/Sex: 83 / MDate of Service: 08/03/19 Loc: ED Accession Number: [id number] Procedure: XR knee RT 3V Ordering Provider: Diana Newton PROCEDURE: XR KNEE RT 3V INDICATIONS: fall, right knee pain and swelling TECHNIQUE: 3 views of the knee were acquired. COMPARISON: None. FINDINGS: Bones: No fractures or dislocations. No suspicious bony lesions. Moderate tricompartmental osteoarthritis. Soft tissues: Large suprapatellar joint effusion. No suspicious soft tissue calcifications. IMPRESSION: No fracture. No acute osseous lesion. If symptoms and/or clinical suspicion for pathology persists, further assessment with repeat radiographs (7-10 days) or advanced imaging (e.g. CT, MRI or bone scan) may be helpful. Dictated by: Alona Khanna MD, PhD on 08/03/2019 at 16:06 Approved by: Alona Khanna MD, PhD on 08/03/2019 at 16:07 [facility] Narrative Medical decision making narrative: History and examination concerning for right knee injury related to fall. Differential includes soft tissue injury, versus meniscus injury versus ligamentous injury. Less likely fracture due to negative x-ray and patient's ability to bear weight on leg after Richard wrap and Tylenol administration. However, patient was instructed to follow up with his primary care provider for further evaluation if pain persists. Less likely other injury due to lack of appearance of head trauma, denies head trauma, no pain with palpation of foot or hip. Ambulation without difficulty per norm. Patient agreed to plan of care verbalized understanding. Fall appears to be mechanical, was witnessed by family who states that he did trip. Discharge Plan Departure Patient Disposition: Home Clinical Impression: Acute knee pain Qualifiers: Laterality: right Qualified Code(s): M25.561 - Pain in right knee Discharge Date/Time: 08/03/19 17:41 Instructions: DI for Knee Pain Activity Restrictions/Additional Instructions: Thank you for entrusting me with your care today. As discussed, your x-ray does not show any fractures. You may use the elastic bandage to help when give your knee support when walking. Please call your primary care provider, Dr. Tovar to schedule an appointment for follow-up in the next few weeks. Return emergency department for any new or worsening symptoms such as severe pain, continued falls, head trauma, fevers, or any other concerns. Take acetaminophen 500-625mg as needed every 8 hours for pain. Prescriptions: No Action carbidopa-levodopa 25 MG/100 MG tablet,disintegrating 1 tab PO TID Qty: 0 RF: 0 atenolol 25 mg tablet 25 mg PO Q DAY Qty: 90 RF: 3 entacapone 200 mg tablet 200 mg PO TID RF: 0 Refresh Contacts Drops ophthalmic (eye) RF: 0 cholecalciferol (vitamin D3) PO RF: 0 Referrals: Joseph Tovar, [Primary Care Provider] -
[2019-08-03] MEDS: ACETAMINOPHEN 325 MG TABLET 650 MG PO (16:48)
--- NOTE | 2019-08-03 17:02 | PC.NURSE ---
Pt initially refuses Richard Wrap right knee, RN applies over Pt's sweatpants. Pt ambulates with aid of walker.
[2019-08-03 17:34] VITALS: BP 109/60; PULSE 61; O2SAT 100
== END 2019-08-03 17:41 | disposition home or self-care (01) ==
PROVIDERS: Emergency Provider Nurse Practitioner; PCP Family Medicine
DX: M25.561 Pain in right knee (principal); W01.0XXA Fall on same level from slipping, tripping and stumbling without subsequent striking against object, initial encounter
CPT/HCPCS: 73562; 99283

== ENCOUNTER 2020-04-26 18:11 | Emergency (ER) | payer MEDICARE, SELFPAY ==
[2020-01-16 09:24] VITALS: BMI 26.9
--- NOTE | 2020-04-26 18:13 | ED.HEATRA ---
HPI - Head Injury General Chief complaint: Fall Stated complaint: fall, hit his head Time Seen by Provider: 04/26/20 18:13 Source: patient and family Mode of arrival: Ambulatory Limitations: no limitations History of Present Illness HPI Narrative: 84-year-old male nonsmoker with baseline confusion, memory problems and gait disturbance presents with significant other and a chief complaint of a ground level fall in which he fell exiting a vehicle and hit his head on the ground. He is at his baseline and complains only of an abrasion on the right side of his head. He denies loss of consciousness, nausea or vomiting. He does not take any blood thinners. He denies any other injury as a consequence of the fall. Significant other at bedside states he is acting appropriate and at his baseline. He denies dizziness, weakness or lightheadedness. He has had no weakness or fatigue. He denies any dysuria, frequency or urgency MD Complaint: head injury, head pain and fall Onset (ago): minute(s) Mechanism of Injury: fall Place: outdoors Loss of Consciousness: no Location of injury: temporal Severity: mild Quality: aching Radiation: none Other Injuries: none Associated symptoms: denies other symptoms Related Data Home Medications Medication Instructions Recorded Confirmed carbidopa-levodopa 1 tab PO TID #0 07/18/17 01/24/20 carboxymethylcellulose sodium OPHTHALMIC (EYE) 05/14/19 01/24/20 entacapone 200 mg tablet 200 mg PO TID 05/14/19 01/24/20 atenolol 25 mg tablet 25 mg PO TID tab 08/15/19 01/24/20 cholecalciferol (vitamin D3) PO TID 08/15/19 01/24/20 Allergies Allergy/AdvReac Type Severity Reaction Status Date / Time No Known Drug Allergies Allergy Verified 01/24/20 09:46 Review of Systems Constitutional Constitutional: Denies chills, Denies fatigue, Denies fever(s), Denies frequent falls, Reports headache(s), Denies lethargy and Denies weakness Eyes Eyes: Denies change in vision, Denies eye discharge, Denies irritation and Denies loss of vision ENT Ears, Nose, Mouth, and Throat: Denies change in voice, Denies dizziness, Reports headache(s), Denies neck pain, Denies sore throat and Denies throat swelling Cardiovascular Cardiovascular: Denies chest pain, Denies irregular heart rhythm, Denies lightheadedness, Denies palpitations, Denies dyspnea, Denies dyspnea on exertion and Denies orthopnea Respiratory Respiratory: Denies cough, Denies dyspnea, Denies dyspnea on exertion and Denies wheezing Gastrointestinal Gastrointestinal: Denies abdominal pain, Denies change in bowel habits, Denies diarrhea, Denies nausea and Denies vomiting Musculoskeletal Musculoskeletal: Denies neck pain and Denies numbness Integumentary/Breasts Skin/Breast: Denies pruritus, Denies erythema, Denies rash, Reports skin swelling and Reports wounds (superficial abrasion) Neurologic Neurologic: Denies behavioral changes, Denies confusion, Denies dizziness, Denies frequent falls, Reports headache(s), Denies loss of vision, Denies numbness and Denies weakness Psychiatric Psychiatric: Denies anxiety, Denies behavioral changes, Denies confusion, Denies depression, Denies homicidal ideation and Denies suicidal ideation Endocrine Endocrine: Denies fatigue, Denies flushing and Denies palpitations Hematologic/Lymphatic Hematologic/Lymphatic: Denies easy bruising Allergic/Immunologic Allergic/Immunologic: Denies urticaria, Denies throat swelling and Denies wheezing Patient History Medical History Abdominal wall hernia Essential hypertension with goal blood pressure less than 140/90 (07/04/15) Intestinal neoplasm Parkinson's disease (07/04/15) Partial small bowel obstruction Pulmonary nodule Surgical History History of intestinal surgery Hx of malignant neoplasm of prostate Family History Father Hypertension Mother Breast cancer Social History marital status: household members: spouse occupational status: previously employed Smoking Status: Never smoker alcohol intake: current substance use type: does not use Smoking Status: Never smoker alcohol intake frequency: a few times a week Substance Use Type: does not use Exam Narrative Exam Narrative: GENERAL: [84] year old patient appears stated age. Well-nourished, well-developed patient, in mild distress. GCS 14. Pleasantly confused, at his baseline per significant other at bedside HEAD: Superficial abrasion with mild swelling at right temporal scalp. No active bleeding, no evidence of depressed skull fracture. EYES: Pupils equal round and reactive. No hyphema Extraocular motions intact. No scleral icterus. No injection or drainage. ENT: Nose without bleeding, purulent drainage. No nasal septal hematoma Throat without erythema, tonsillar hypertrophy or exudate. Airway patent. No hemotympanum NECK: Trachea midline. Non tender CARDIOVASCULAR: Regular rate and rhythm without murmurs, gallops, or rubs. RESPIRATORY: Clear to auscultation. Breath sounds equal bilaterally. No wheezes, rales, or rhonchi. GASTROINTESTINAL: Abdomen soft, non-tender, nondistended. EXTREMITIES: No edema or joint tenderness. BACK: Nontender without deformity or crepitance. No flank tenderness. NEURO: AOx2. SKIN: No rash or erythema of visible areas Initial Vital Signs Initial Vital Signs: Vital Signs Temperature 97.6 F 04/26/20 18:19 Pulse Rate 63 04/26/20 18:19 Respiratory Rate 14 04/26/20 18:19 Blood Pressure 157/71 H 04/26/20 18:19 Pulse Oximetry 96 04/26/20 18:19 Scores GCS Breeden coma scale eye opening: Spontaneous Maria Antonia coma scale verbal response: Confused Breeden coma scale motor response: Obey commands Maria Antonia coma scale total score: 14 Course Orders Ordered: ED Orders 04/26/20 18:19 CT head/brain wo con Stat Vital Signs Vital signs: Vital Signs - 8 hr 04/26/20 18:19 Temperature 97.6 F Pulse Rate 63 Respiratory Rate 14 Blood Pressure 157/71 H Pulse Oximetry 96 MDM - Head Injury Imaging Data CT scan - head: Radiologist's Impression: Brandon Singh Sun[place] 84 M [address] [id number] Scan ReportSigned Patient: Brandon Singh [facility]#: [id number]: 1935cct:[id number]/Sex: 84 / MDate of Service: 04/26/20Loc: EDAccession Number: [id number] Procedure: CT head/brain wo con Ordering Provider: Waldo Chavez D.O. PROCEDURE: CT HEAD/BRAIN WO CON INDICATIONS: fall with head injury TECHNIQUE: Noncontrast 4.5 mm thick angled axial sections acquired from the foramen magnum to the vertex, with coronal and sagittal reformats. For radiation dose reduction, the following was used: automated exposure control, adjustment of mA and/or kV according to patient size. COMPARISON: None. FINDINGS: Image quality: Excellent. CSF spaces: Basal cisterns are patent. No extra-axial fluid collections. The ventricles are symmetric in size and shape. Brain: No intracranial bleeds or masses. There is cerebral volume loss for age, with resultant ventricular and sulcal prominence. There are periventricular and deep white matter chronic small vessel ischemic changes. There is intracranial internal carotid artery atherosclerosis. Skull and face: Calvarium and visualized facial bones appear intact, without suspicious lesions. Sinuses: Visualized sinuses demonstrates a small right maxillary sinus mucous retention cyst versus polyp. IMPRESSION: 1. No acute intracranial process. 2. Moderate to severe atrophy and chronic microvascular ischemic changes. Dictated by: Ada Meyers M.D. on 04/26/2020 at 18:48 Approved by: Ada Meyers M.D. on 04/26/2020 at 18:49 Discharge Plan Departure Patient Disposition: Home Clinical Impression: Contusion of forehead Qualifiers: Encounter type: initial encounter Qualified Code(s): S00.83XA - Contusion of other part of head, initial encounter Instructions: How to Prevent Falls Activity Restrictions/Additional Instructions: *You have been diagnosed with [forehead contusion] *What to do: * continues to take medications as directed *Follow up with your primary care provider in 2-3 days, call for an appointment. Let them know you were seen in the Emergency Department and that we ask that you be seen in follow up *Return to ER if you should have any new, worsening or concerning symptoms Prescriptions: No Action carbidopa-levodopa 25 MG/100 MG tablet,disintegrating 1 tab PO TID Qty: 0 RF: 0 entacapone 200 mg tablet 200 mg PO TID RF: 0 Refresh Contacts Drops ophthalmic (eye) RF: 0 cholecalciferol (vitamin D3) PO TID RF: 0 atenolol 25 mg tablet 25 mg PO TID RF: 0 Referrals: Joseph Tovar, [Primary Care Provider] -
[2020-04-26 18:19] VITALS: BP 157/71; PULSE 63; RESP 14; TEMP 36.4; O2SAT 96
--- NOTE | 2020-04-26 18:19 | DI.CT.S_ITS ---
PROCEDURE: CT HEAD/BRAIN WO CON INDICATIONS: fall with head injury TECHNIQUE: Noncontrast 4.5 mm thick angled axial sections acquired from the foramen magnum to the vertex, with coronal and sagittal reformats. For radiation dose reduction, the following was used: automated exposure control, adjustment of mA and/or kV according to patient size. COMPARISON: None. FINDINGS: Image quality: Excellent. CSF spaces: Basal cisterns are patent. No extra-axial fluid collections. The ventricles are symmetric in size and shape. Brain: No intracranial bleeds or masses. There is cerebral volume loss for age, with resultant ventricular and sulcal prominence. There are periventricular and deep white matter chronic small vessel ischemic changes. There is intracranial internal carotid artery atherosclerosis. Skull and face: Calvarium and visualized facial bones appear intact, without suspicious lesions. Sinuses: Visualized sinuses demonstrates a small right maxillary sinus mucous retention cyst versus polyp. IMPRESSION: 1. No acute intracranial process. 2. Moderate to severe atrophy and chronic microvascular ischemic changes. Dictated by: Ada Meyers M.D. on 04/26/2020 at 18:48 Approved by: Ada Meyers M.D. on 04/26/2020 at 18:49
== END 2020-04-26 19:15 | disposition home or self-care (01) ==
PROVIDERS: Emergency Provider Emergency Medicine; PCP Family Medicine
DX: S00.83XA Contusion of other part of head, initial encounter (principal); W19.XXXA Unspecified fall, initial encounter; I11.0 Hypertensive heart disease with heart failure; I26.99 Other pulmonary embolism without acute cor pulmonale; G20 Parkinson's disease
CPT/HCPCS: 36415; 70450; 93005; 93010; 99284

== ENCOUNTER 2020-12-29 11:22 | Emergency (ER) | payer MEDICARE, SELFPAY ==
[2020-01-16 09:24] VITALS: BMI 26.9
[2020-12-29 11:33] VITALS: BP 139/63; PULSE 56; RESP 12; TEMP 36.5; O2SAT 99; BMI 24.5
--- NOTE | 2020-12-29 11:35 | ED.GENADULT ---
HPI - General Adult General Chief complaint: Wound/Laceration Stated complaint: head injury- facial, glf fell onto walker Time Seen by Provider: 12/29/20 11:31 Source: patient and family Mode of arrival: Ambulatory History of Present Illness HPI narrative: Patient is an 85-year-old male. Not on anticoagulation who yesterday evening was getting standing up and lost his balance and fell forward. He either hit his face on the walker on a piece of furniture. There was no loss of consciousness. Patient reports no other injuries from the event. He is here several hours after the event. Has a cut to his upper nose. Denies any headache. No neck pain. No extremity discomfort. Related Data Home Medications Medication Instructions Recorded Confirmed carbidopa 25 mg-levodopa 100 mg 1 tab PO TID #0 07/18/17 09/11/20 disintegrating tablet carboxymethylcellulose sodium OPHTHALMIC (EYE) 05/14/19 09/11/20 (Refresh Contacts) entacapone 200 mg tablet 200 mg PO TID 05/14/19 09/11/20 cholecalciferol (vitamin D3) PO TID 08/15/19 09/11/20 Previous Rx's Medication Instructions Recorded atenolol 25 mg tablet See Rx Instructions .ROUTE 10/20/20 .COMPLEX #90 tab Allergies Allergy/AdvReac Type Severity Reaction Status Date / Time No Known Drug Allergies Allergy Verified 12/29/20 11:35 Review of Systems Constitutional Constitutional: Denies fever(s) and Denies headache(s) Eyes Eyes: Reports system reviewed and no additional complaints, except as documented ENT Ears, Nose, Mouth, and Throat: Denies headache(s) Comments: Cut over bridge of nose Cardiovascular Comments: No chest pain Respiratory Comments: No shortness of breath Gastrointestinal Comments: No abdominal pain Musculoskeletal Musculoskeletal: Reports system reviewed and no additional complaints, except as documented Integumentary/Breasts Comments: Cut over bridge of nose Neurologic Neurologic: Denies headache(s) Hematologic/Lymphatic On Anticoagulants: No Patient History Medical History (Updated 12/29/20 @ 12:29 by Rey Pisano DO) Abdominal wall hernia Essential hypertension with goal blood pressure less than 140/90 (07/04/15) Intestinal neoplasm Parkinson's disease (07/04/15) Partial small bowel obstruction Pulmonary nodule Surgical History History of intestinal surgery Hx of malignant neoplasm of prostate Family History Father Hypertension Mother Breast cancer Social History marital status: household members: spouse occupational status: previously employed Smoking Status: Never smoker alcohol intake: current substance use type: does not use Smoking Status: Never smoker alcohol intake frequency: a few times a week Substance Use Type: does not use Exam Initial Vital Signs Initial Vital Signs: Vital Signs Temperature 97.7 F 12/29/20 11:33 Pulse Rate 56 L 12/29/20 11:33 Respiratory Rate 12 12/29/20 11:33 Blood Pressure 139/63 12/29/20 11:33 Pulse Oximetry 99 12/29/20 11:33 Const General: cooperative, comfortable and well developed HENMT Head: normal to inspection and normocephalic Ears: TM's normal bilaterally Nose: nares normal, No epistaxis, No nasal discharge and other (CT of abrasion nose) Mouth: oral mucosae normal and moist mucous membranes Teeth and gingiva: dentition normal Eyes Pupils: PERRL EOM: EOM intact bilaterally Resp Effort & Inspection: normal respiratory effort Auscultation: clear to auscultation bilaterally Cardio Rate: regular rate Rhythm: regular rhythm Skin Other: Patient with a 3 cm irregular laceration over bridge of nose. Neuro General: patient alert, patient awake, patient oriented x3 and moves all extremities Speech: speech normal Extrem Other: Pelvis, upper extremities, lower extremities all unremarkable. Psych Appearance: grossly normal and well kempt Procedures Laceration Repair Laceration 1: Site: other (Nose) Size (cm): 3 Description: irregular Depth: simple, single layer Local Anesthetic: lidocaine 1% and with bicarb Amount of anesthesia used (mL): 4 Pre-repair: wound explored, irrigated extensively and deep structures intact Skin layer closed with: nylon Size (cm): 6-0 Number of sutures: 9 Technique: simple, interrupted Scores GCS Eugene coma scale eye opening: Spontaneous Eugene coma scale verbal response: Orientated Eugene coma scale motor response: Obey commands Eugene coma scale total score: 15 Nexus Score for C-Spine Focal Neurologic deficit present: No Midline spinal tenderness present: No Altered level of conciousness present: No Intoxication present: No Distracting Injury Present: No Nexus Criteria for C-spine: 0 Course Orders Ordered: Discontinued Medications Bacitracin (Bacitracin Oint 0.9 Gm Pckt) 1 applic TOP NOW ONE Stop: 12/29/20 12:36 Last Admin: 12/29/20 12:38 Dose: 1 applic Documented by: BALAJI Lidocaine/Sodium Bicarbonate (Lido 1%/Sod Bicarb 8.4% (10ml) 10 Ml Syringe) 10 ml INJ NOW ONE Stop: 12/29/20 11:36 Last Admin: 12/29/20 11:42 Dose: 10 ml Documented by: BALAJI Vital Signs Vital signs: Vital Signs - 8 hr 12/29/20 11:33 Temperature 97.7 F Pulse Rate 56 L Respiratory Rate 12 Blood Pressure 139/63 Pulse Oximetry 99 Medical Decision Making MDM Narrative Medical decision making narrative: Patient's fall occurred last evening. He is not on blood thinners. Reports no other injuries except for the laceration across his nose. Has no neck pain. No distracting injury. Moves all 4 extremities. The laceration was closed as described above. No further imaging needed in the emergency department given his presentation. He was given care instructions and return precautions. He expressed understanding and agreement. Discharge Plan Departure Patient Disposition: Home Clinical Impression: Laceration of face Instructions: DI for Laceration Repair Activity Restrictions/Additional Instructions: The stitches do need to be removed in 7-10 days. You can go to your primary doctor were to the walk-in clinic for this. You can shower like normal. You can put antibiotic ointment over the area. Return to the emergency department for any new or worsening symptoms Prescriptions: No Action carbidopa-levodopa 25 MG/100 MG tablet,disintegrating 1 tab PO TID Qty: 0 RF: 0 atenolol 25 mg tablet See Rx Instructions .ROUTE .COMPLEX Qty: 90 RF: 0 entacapone 200 mg tablet 200 mg PO TID RF: 0 Refresh Contacts Drops ophthalmic (eye) RF: 0 cholecalciferol (vitamin D3) PO TID RF: 0 Referrals: Joseph Tovar, DO [Primary Care Provider] -
--- NOTE | 2020-12-29 11:37 | PC.NURSE ---
Fall last night, denies LOC, denies c-spine tenderness or any other injury. patient presents with dry blood over face, laceration to bridge of nose on right side. Denies facial bone tenderness, no broken teeth or jaw pain.
[2020-12-29] MEDS: LIDO 1%/SOD BICARB 8.4% (10ML) 10 ML SYRINGE INJ (11:42)
[2020-12-29] MEDS: BACITRACIN OINT 0.9 GM PCKT 1 APPLIC TOP (12:38)
== END 2020-12-29 12:43 | disposition home or self-care (01) ==
PROVIDERS: Emergency Provider Emergency Medicine; PCP Family Medicine
DX: S01.21XA Laceration without foreign body of nose, initial encounter (principal); W18.30XA Fall on same level, unspecified, initial encounter
CPT/HCPCS: 12013; 99283